=== PATIENT | male | born 1960 | race Caucasian/White ===

== ENCOUNTER 2019-05-17 13:13 | Outpatient (CLI) | payer OTHER, SELFPAY ==
--- NOTE | 2019-05-20 12:25 | WPDHOLTEREM ---
Holter/Event Monitor Holter/Event Monitor Date of procedure: 05/17/19 Procedure Type: 24 hour holter monitor Indications: Cardiac arrhythmia Conclusion: 1. 24 hour holter monitor on 05/17/19. 2. Underlying rhythm is sinus rhythm. HR range 48-113 bpm; average HR 71 bpm. 3. There are 3,587 premature supraventricular complexes, 74 supraventricular couplets, 3 supraventricular bigeminy and 2,297 supraventricular trigeminy. No supraventricular tachycardia. 4. There are 714 premature ventricular complexes and 3 ventricular bigeminy. No ventricular tachycardia. 5. No sinoatrial or atrioventricular blocks. No significant pauses greater than 2 seconds. 6. No symptoms available for correlation.
== END 2019-05-17 13:14 | disposition home or self-care (01) ==
PROVIDERS: PCP Family Medicine; Visit Provider Physician Assistant Medical
DX: I49.9 Cardiac arrhythmia, unspecified (principal)
CPT/HCPCS: 93225; 93226

== ENCOUNTER → 2019-05-31 11:11 | Outpatient (CLI) | payer OTHER, SELFPAY ==
--- NOTE | ~2019-05-31 | DEXA_ITS ---
Bone Density Report Name: Anselmo Arellano Age: 58 Sex: Male Ethnicity: White Date of : 1960 Indication: Osteoporosis Referring Provider: Sarah Beth Stevens Study: Bone densitometry was performed. Exam Date: May 31, 2019 Accession number: [id number] Bone Density: Region BMD T-score Z-score Classification AP Spine (L1-L4) 0.796 -2.7 -2.0 Osteoporosis Femoral Neck (Left) 0.642 -2.1 -1.2 Osteopenia Total Hip (Left) 0.786 -1.6 -1.2 Osteopenia Femoral Neck (Right) 0.612 -2.3 -1.4 Osteopenia Total Hip (Right) 0.729 -2.0 -1.6 Osteopenia Total Hip Mean 0.758 -1.8 -1.4 Osteopenia World Health Organization criteria for BMD impression classify patients as: Normal (T-score at or above -1.0), Osteopenia (T-score between -1.0 and -2.5), or Osteoporosis (T-score at or below -2.5). 10-year Fracture Risk: FRAX not reported because: Some T-score for Spine Total or Hip Total or Femoral Neck at or below -2.5 Clinical Information Provided by Patient: Has used the following medications: Vitamin D, Calcium Patient maximum height was 70 No regular weight bearing exercise Drinks caffeinated beverages Impression: The patient has osteoporosis, based on the Total Spine T-score. Discussion: HIGH RISK OF FRACTURE. BONE DENSITY IS UNDESIRABLY LOW AT ONE OR MORE SKELETAL SITES, CONSISTENT WITH OSTEOPOROSIS. ALSO, BONE DENSITY IS LOWER THAN EXPECTED FOR AGE, SEX AND RACE AT ONE OR MORE SKELETAL SITES; RECOMMEND A DILIGENT SEARCH FOR SECONDARY CAUSES OF BONE LOSS. This patient's lowest T-score meets the World Health Organization's (WHO) criteria for osteoporosis at one or more sites (T-score -2.5 or below). In untreated patients, the risk of osteoporotic fracture increases approximately two-fold for each 1.0 SD decrease in T-score. Low bone density is not the only risk factor for fracture; also consider factors such as patient's age, frailty or poor health, risk of falling, risk of injury, previous osteoporotic fracture, family history of osteoporosis, cigarette smoking, low body weight, etc. Not everyone with low bone mineral density has osteoporosis; osteomalacia and other metabolic bone disorders should also be considered. Patients who have osteoporosis should be evaluated for specific diseases and conditions (secondary causes) that may cause or contribute to bone loss. The National Osteoporosis Foundation (NOF) recommends pharmacologic intervention for men with BMD at this level (a T-score of -2.5 or below). Also, this patient's bone mineral density is below the range considered normal for healthy age-, sex and race-matched controls at least one site (Z-score -2.0 or below). This warrants careful evaluation for diseases and conditions that may contribute to accelerated bone loss. The patient should follow a healthful lifestyle (good nutriti
== END ==
PROVIDERS: PCP Physician Assistant Medical; Visit Provider Internal Medicine Endocrinology, Diabetes & Metabolism
DX: M81.0 Age-related osteoporosis without current pathological fracture (principal); M85.89 Other specified disorders of bone density and structure, multiple sites
CPT/HCPCS: 77080

== ENCOUNTER 2019-06-15 07:31 | Outpatient (CLI) | payer OTHER, SELFPAY ==
--- NOTE | 2019-06-15 07:37 | ECHO_ITS ---
Patient Info Name: Anselmo Arellano Age: 58 years : 1960 Gender: Male Ht: 70 in Wt: 175 lbs BSA: 1.99 m2 HR: 64 bpm BP: 112 / 71 mmHg Technical Quality: Excellent Exam Date: 06/15/2019 7:48 AM Exam Location: [facility] Patient Status: Outpatient Admit Date: 06/15/2019 Staff Ordering Physician: Gabe Tomas DO Mold Washer: Domonique Gandara RDCS Attending Provider: Gabe Tomas DO Referring Physician: Thom CONTRERAS; Exam Type: CA echo doppler color flow Study Info Indications I49.3 - Ventricular premature depolarization Complete two-dimensional, color flow and Doppler transthoracic echocardiogram is performed. Summary 1. Left ventricular chamber dimension is normal. 2. Left ventricular systolic function is normal, estimated at 60-65%. 3. The left ventricular diastolic function is normal. 4. E/e' 7 is not elevated. 5. There is mild aortic valve sclerosis. 6. There is trace mitral valve regurgitation. 7. There is trace tricuspid valve regurgitation. 8. No pulmonary hypertension, estimated pulmonary arterial systolic pressure is 26 mmHg. Left Ventricle E/e' 7 is not elevated. Left ventricular chamber dimension is normal. Left ventricular systolic function is normal, estimated at 60-65%. The left ventricular diastolic function is normal. Right Ventricle Right ventricular chamber dimension is normal. Right ventricular systolic function is normal. Left Atria Left atrial chamber dimension is normal. Right Atria Right atrial chamber dimension is normal. Aortic Valve The aortic valve is trileaflet. There is mild aortic valve sclerosis. There is no aortic valve stenosis. There is no aortic valve regurgitation. Pulmonic Valve There is no pulmonic regurgitation. Mitral Valve There is no mitral valve stenosis. There is trace mitral valve regurgitation. Tricuspid Valve There is trace tricuspid valve regurgitation. No pulmonary hypertension, estimated pulmonary arterial systolic pressure is 26 mmHg. Pericardium/Pleural There is no pericardial effusion. Inferior Vena Cava Normal inferior vena cava with >50% collapse upon inspiration consistent with normal right atrial pressure, 5 mmHg. Aorta The aortic root size at the sinus of Valsalva is normal. Left Ventricular Outflow Tract Name Value Normal LVOT 2D LVOT Diameter 2.3 cm LVOT Doppler LVOT Peak Gradient 2 mmHg LVOT Mean Gradient 1 mmHg LVOT VTI 18 cm LVOT VTI/AV VTI Ratio 1.0 LVOT Stroke Volume 74 ml LVOT CO 4.5 l/min LVOT CI 2.3 l/min/m2 Pulmonic Valve Name Value Normal RVOT Doppler RVOT Peak Gradient 2 mmHg
== END 2019-06-15 07:32 | disposition home or self-care (01) ==
PROVIDERS: PCP Physician Assistant Medical; Visit Provider Internal Medicine Cardiovascular Disease
DX: I49.3 Ventricular premature depolarization (principal)
CPT/HCPCS: 93306

== ENCOUNTER → 2020-06-23 12:36 | Outpatient (CLI) | payer MEDICARE, SELFPAY ==
--- NOTE | ~2020-06-23 | DEXA_ITS ---
Bone Density Report Name: Anselmo Arellano Age: 59 Sex: Male Ethnicity: White Date of : 1960 Indication: osteoporosis; monitoring treatment; Referring Provider: Sarah Beth Stevens Study: Bone densitometry was performed. Exam Date: June 23, 2020 Accession number: [id number] Bone Density: Region BMD T-score Z-score Classification AP Spine (L1-L4) 0.819 -2.5 -1.8 Osteoporosis Femoral Neck (Left) 0.661 -2.0 -1.0 Osteopenia Total Hip (Left) 0.824 -1.4 -0.9 Osteopenia Femoral Neck (Right) 0.589 -2.5 -1.5 Osteoporosis Total Hip (Right) 0.748 -1.9 -1.4 Osteopenia Total Hip Mean 0.786 -1.7 -1.2 Osteopenia World Health Organization criteria for BMD impression classify patients as: Normal (T-score at or above -1.0), Osteopenia (T-score between -1.0 and -2.5), or Osteoporosis (T-score at or below -2.5). 10-year Fracture Risk: FRAX not reported because: Some T-score for Spine Total or Hip Total or Femoral Neck at or below -2.5 Treated for osteoporosis Previous Exams: Region Exam Age BMD T-score BMD Change BMD Change Date g/cm2 vs Baseline vs Previous AP Spine(L1-L4) 06/23/2020 59 0.819 -2.5 0.022 0.022 05/31/2019 58 0.796 -2.7 Total Hip(Left) 06/23/2020 59 0.824 -1.4 0.038* 0.038* 05/31/2019 58 0.786 -1.6 Total Hip(Right) 06/23/2020 59 0.748 -1.9 0.020 0.020 05/31/2019 58 0.729 -2.0 *Denotes significance at 95% confidence level, LSC for AP Spine = 0.022 g/cm2, LSC for Total Hip = 0.027 g/cm2 Clinical Information Provided by Patient: Is being treated for osteoporosis Has used the following medications: Prolia (i.e. denosumab), Vitamin D, Calcium Patient maximum height was 70 No regular weight bearing exercise Drinks caffeinated beverages Impression: The patient has osteoporosis, based on the Total Spine T-score. No significant bone loss was observed. Discussion: PATIENT UNDER TREATMENT WITH NO SIGNIFICANT BMD LOSS SINCE LAST EXAM. In an untreated patient, BMD typically declines with age. A lack of decline or gain is usually a sign that treatment is efficacious and fracture risk is reduced. It is important to ask patients whether they are taking their medications and to encourage continued and appropriate compliance with their osteoporosis therapies to reduce fracture risk. It is also important to review their risk factors and encourage appropriate calcium and vitamin D intakes, exercise
== END ==
PROVIDERS: Visit Provider Internal Medicine Endocrinology, Diabetes & Metabolism
DX: M81.0 Age-related osteoporosis without current pathological fracture (principal); M85.852 Other specified disorders of bone density and structure, left thigh; M85.851 Other specified disorders of bone density and structure, right thigh
CPT/HCPCS: 77080

== ENCOUNTER → 2020-12-19 10:45 | Outpatient (CLI) | payer MEDICARE, SELFPAY ==
--- NOTE | ~2020-12-19 | MR_ITS ---
EXAMINATION: MR cervical spine wo con EXAM DATE: 12/19/2020 11:31 INDICATION: Cervicalgia. Neck pain. TECHNIQUE: Multi-sequential, multiplanar MR images of the cervical spine were obtained without contra st. Axial T2, axial T2 MERGE sequence. Sagittal T1, T2, T2 fat saturation images also obtained. Th ere is no prior study for comparison. FINDINGS: There is mild to moderate disc disease at C5-6, mild at the C4-5 and 6-7 levels. The verte bral bodies are aligned in the AP dimension. The spinal cord signal intensity and intrinsic morpholog y is normal. Cervicomedullary junction is normal in appearance. There is T1 hemangioma. There are no suspicious marrow signal abnormalities. Paraspinal soft tissue is unremarkable. Level by level evaluation: C2-C3: Disc does not extend beyond the endplate margin. Uncovertebral joint arthropathy: None. Facet joint arthropathy: Mild bilateral. Neural foraminal stenosis: No stenosis. Central canal stenosis: No stenosis. C3-C4: There is a minimal diffuse disc bulge. Uncovertebral joint arthropathy: Mild to moderate left, mild right. Facet joint arthropathy: Moderate bilateral. Neural foraminal stenosis: Mild bilateral. Central canal stenosis: No stenosis. C4-C5: There is a minimal diffuse disc bulge. Uncovertebral joint arthropathy: Mild bilateral. Facet joint arthropathy: Mild to moderate bilateral. Neural foraminal stenosis: Mild bilateral. Central canal stenosis: No stenosis. C5-C6: There is a mild diffuse disc bulge. Uncovertebral joint arthropathy: Moderate bilateral. Facet joint arthropathy: Moderate bilateral. Neural foraminal stenosis: Mild to moderate bilateral. Central canal stenosis: Mild. C6-C7: There is a mild diffuse disc bulge. Uncovertebral joint arthropathy: Moderate bilateral. Facet joint arthropathy: Mild to moderate bilateral. Neural foraminal stenosis: Mild to moderate right, mild left. Central canal stenosis: Mild. C7-T1: Disc does not extend beyond the endplate margin. Uncovertebral joint arthropathy: None. Facet joint arthropathy: Mild to moderate bilateral. Neural foraminal stenosis: No stenosis. Central canal stenosis: No stenosis. IMPRESSION: Mild to moderate cervical spondylosis. Reviewed, dictated and finalized at location [facility].
== END ==
PROVIDERS: PCP Nurse Practitioner Family; Visit Provider Nurse Practitioner Family
DX: M54.2 Cervicalgia (principal); M47.812 Spondylosis without myelopathy or radiculopathy, cervical region
CPT/HCPCS: 72141

== ENCOUNTER → 2022-04-29 08:48 | Outpatient (CLI) | payer MEDICARE, SELFPAY ==
--- NOTE | ~2022-04-29 | MR_ITS ---
MRI of the lumbar spine Clinical History: Back pain Technique: Axial T2-weighted images, and sagittal T1-weighted, T2-weighted, and T2 fat-sat images wer e acquired. Findings: There is no fracture or subluxation of the lumbar spine. Vertebral bodies maintain normal h eight and alignment. No bone marrow signal abnormality seen. At L1-L2, there is no disc bulge or herniation. No spinal canal stenosis or neural foraminal narrowin g. At L2-L3, there is no disc bulge or herniation. No spinal canal stenosis or neural foraminal narrowin g. At L3-L4, there is minimal disc bulge. No spinal canal stenosis or neural foraminal narrowing. At L4-L5, there is minimal disc bulge and minimal facet joint degenerative change. No spinal canal st enosis or neural foraminal narrowing. At L5-S1, there is no disc bulge or herniation. No spinal canal stenosis or neural foraminal narrowin g. Paravertebral soft tissues are unremarkable. Impression: Minimal degenerative changes, as above. Reviewed, dictated and finalized at [facility]. TRY PRINTER Impression: Minimal degenerative changes, as above.
== END ==
PROVIDERS: PCP Family Medicine; Visit Provider Anesthesiology Pain Medicine
DX: M54.50 Low back pain, unspecified (principal)
CPT/HCPCS: 72148

== ENCOUNTER → 2022-09-25 13:20 | Outpatient (CLI) | payer MEDICARE, SELFPAY ==
--- NOTE | ~2022-09-25 | DEXA_ITS ---
Bone Density Report Name: LALI BAKER Age: 62 Sex: Male Ethnicity: White Date of : 1960 Indication: osteoporosis; monitoring treatment; postmenopausal Referring Provider: Sarah Beth Stevens Study: Bone densitometry was performed. Exam Date: September 25, 2022 Accession number: [id number] Bone Density: Region BMD T-score Z-score Classification AP Spine (L1-L4) 0.857 -2.1 -1.4 Osteopenia Femoral Neck (Left) 0.679 -1.8 -0.8 Osteopenia Total Hip (Left) 0.810 -1.5 -1.0 Osteopenia Femoral Neck (Right) 0.638 -2.1 -1.1 Osteopenia Total Hip (Right) 0.765 -1.8 -1.3 Osteopenia Total Hip Mean 0.788 -1.7 -1.2 Osteopenia World Health Organization criteria for BMD impression classify patients as: Normal (T-score at or above -1.0), Osteopenia (T-score between -1.0 and -2.5), or Osteoporosis (T-score at or below -2.5). 10-year Fracture Risk: FRAX not reported because: Treated for osteoporosis Previous Exams: Region Exam Age BMD T-score BMD Change BMD Change Date g/cm2 vs Baseline vs Previous AP Spine(L1-L4) 09/25/2022 62 0.857 -2.1 0.061 0.038 06/23/2020 59 0.819 -2.5 0.022 0.022 05/31/2019 58 0.796 -2.7 Total Hip(Left) 09/25/2022 62 0.810 -1.5 0.024 -0.014 06/23/2020 59 0.824 -1.4 0.038* 0.038* 05/31/2019 58 0.786 -1.6 Total Hip(Right) 09/25/2022 62 0.765 -1.8 0.037 0.017 06/23/2020 59 0.748 -1.9 0.020 0.020 05/31/2019 58 0.729 -2.0 *Denotes significance at 95% confidence level, LSC for AP Spine = 0.022 g/cm2, LSC for Total Hip = 0.027 g/cm2 Clinical Information Provided by Patient: Is being treated for osteoporosis Has used the following medications: Prolia (i.e. denosumab), Vitamin D, Calcium Patient maximum height was 70.0 Drinks caffeinated beverages Impression: The patient has low bone mass, based on the Total Spine T-score. No significant bone loss was observed. Discussion: PATIENT UNDER TREATMENT WITH NO SIGNIFICANT BMD LOSS SINCE LAST EXAM. In an untreated patient, BMD typically declines with age. A lack of decline or gain is usually a sign that treatment is efficacious and fracture risk is reduced. It is important to ask patients whether they are taking their medications and to encourage continued and appropriate compliance with their osteoporosis therapies to reduce fracture risk. It is also important t
== END ==
PROVIDERS: PCP Family Medicine; Visit Provider Internal Medicine Endocrinology, Diabetes & Metabolism
DX: M81.0 Age-related osteoporosis without current pathological fracture (principal); M85.88 Other specified disorders of bone density and structure, other site; M85.852 Other specified disorders of bone density and structure, left thigh; M85.851 Other specified disorders of bone density and structure, right thigh
CPT/HCPCS: 77080

== ENCOUNTER → 2022-10-08 13:20 | Outpatient (CLI) | payer MEDICARE, SELFPAY ==
--- NOTE | ~2022-10-08 | MR_ITS ---
MRI of the thoracic spine Clinical History: Pain Technique: Axial T2-weighted and gradient images, and sagittal T1-weighted, T2-weighted, and STIR romeo ges were acquired. Findings: There is no fracture or subluxation of the thoracic spine. Vertebral bodies maintain normal height and alignment. No suspicious bone marrow signal abnormality seen. There is mild left paracentral disc bulge at T4-T5. No other significant disc bulge or herniation see n in the remainder of the thoracic spine. No rand spinal canal stenosis or cord compression. No abnormal signal seen in the spinal cord. Paravertebral soft tissues are unremarkable. Impression: Mild left paracentral disc bulge at T4-T5. No other significant findings. Reviewed, dictated and finalized at [facility]. Impression: Mild left paracentral disc bulge at T4-T5. No other significant findings.
== END ==
PROVIDERS: PCP Nurse Practitioner Family; Visit Provider Nurse Practitioner Family
DX: M54.6 Pain in thoracic spine (principal)
CPT/HCPCS: 72146

== ENCOUNTER → 2023-02-08 09:14 | Outpatient (CLI) | payer MEDICARE, SELFPAY ==
--- NOTE | ~2023-02-08 | MR_ITS ---
MRI of the cervical spine Clinical History: Neck pain Technique: Axial T2-weighted and gradient images, and sagittal T1-weighted, T2-weighted, and STIR romeo ges were acquired. Findings: There is no fracture or subluxation of the cervical spine. Vertebral bodies maintain normal height and alignment. No suspicious bone marrow signal abnormality seen. At C2-C3, there is no disc bulge or herniation. No spinal canal stenosis, cord compression, or neural foraminal narrowing. At C3-C4, there is minimal disc bulge. There is minimal facet arthropathy. There is probable minimal right neural foraminal narrowing. Left neural foramen preserved. No central canal stenosis or cord co mpression. At C4-C5, there is no significant disc bulge or herniation. No spinal canal stenosis, cord compressio n, or neural foraminal narrowing. At C5-C6, there is disc osteophyte complex with central disc protrusion, with minimal canal stenosis and minimal flattening the ventral cord. There is probable mild bilateral neural foraminal narrowing. At C6-C7, there is mild disc bulge with mild canal stenosis and minimal flattening the ventral cord. Bilateral neural foramina are preserved. No abnormal signal seen in the spinal cord. Paravertebral soft tissues are unremarkable. Impression: [id number] degenerative spondylosis at C5-C6. Mild degenerative change at the remaining cervical spine, as detailed above. Reviewed, dictated and finalized at [facility]. ECTION AGENT Impression: [id number] degenerative spondylosis at C5-C6. Mild degenerative change at the remaining cervical spine, as detailed above.
== END ==
PROVIDERS: PCP Family Medicine; Visit Provider Nurse Practitioner Family
DX: M47.892 Other spondylosis, cervical region (principal)
CPT/HCPCS: 72141

== ENCOUNTER → 2023-04-24 13:35 | Outpatient (CLI) | payer MEDICARE, SELFPAY ==
--- NOTE | ~2023-04-24 | MR_ITS ---
MRI of the left knee Clinical history: Pain Technique: Coronal proton density and proton density-weighted images, sagittal proton-density and T2 fat-sat images, and axial proton-density fat-saturated images were acquired. Findings: Anterior and posterior cruciate ligaments are intact. Medial collateral ligament and the la teral collateral ligament complex are intact. Popliteus tendon is intact. There is probable linear intrasubstance degenerative signal in the posterior horn of the medial menis cus, without definite tear. No lateral meniscal tear evident. Articular cartilage in the medial lateral compartments is relatively well-preserved, with minimal thi nning. There is focal moderate chondromalacia of the femoral trochlea centrally. Patellar cartilage i s intact. Extensor mechanism is intact. No significant joint effusion or Ramirez's cyst. Impression: Mild degenerative change/chondromalacia, as above. Reviewed, dictated and finalized at [facility]. UTING MACHINE OPERATOR Impression: Mild degenerative change/chondromalacia, as above.
== END ==
PROVIDERS: PCP Nurse Practitioner Family; Visit Provider Nurse Practitioner Family
DX: M25.562 Pain in left knee (principal)
CPT/HCPCS: 73721

== ENCOUNTER 2024-06-08 19:24 | Emergency (ER) | payer MEDICARE, SELFPAY ==
--- NOTE | ~2024-06-08 | XR_ITS ---
EXAMINATION: XR chest 2V Exam Date/Time: 06/08/2024 20:20 CDT HISTORY: Heart palpitation, double vision in one eye Comparison: None. RESULT: Lines, tubes, and devices: None. Lungs and pleura: Clear. Cardiomediastinal silhouette: Unremarkable. Other: No acute osseous or upper abdominal finding. IMPRESSION: No acute cardiopulmonary process. Reviewed, dictated and finalized at location K.
--- NOTE | ~2024-06-08 | CT_ITS ---
EXAMINATION: CTA brain carotid DATE: 06/08/2024 21:11 INDICATION: Headache double vision TECHNIQUE: Computed tomographic angiography (CTA) of the head was performed without and with 100 mL O mnipaque-350 intravenous contrast. CTA of the neck was performed with intravenous contrast. The dose- length product was 1588.14 mGy-cm. Maximum intensity projection and volume rendered 3D-reconstruction s were created by the technologist on a separate workstation. COMPARISON: None. FINDINGS: CT BRAIN: Focal hypodensity involving gregg and white matter in the left parieto-occipital region. No acute intr acranial hemorrhage, mass, or hydrocephalus. Left maxillary and right sphenoid retention cysts/polyps . Right maxillary and ethmoid mucosal thickening. CTA HEAD: No large vessel occlusion, aneurysm, high flow vascular malformation, nidus or extravasation. Focal h ypoenhancement in the region of left parieto-occipital brain hypodensity seen in the noncontrast port ion of the exam. CTA NECK: Aortic arch and proximal great vessels: Normal arch anatomy. No significant plaque. Right common carotid, carotid bifurcation, and internal carotid artery: No plaque.There is 0% stenosi s of the proximal right internal carotid artery relative to normal distal artery lumen diameter (NASC ET criteria). Left common carotid, carotid bifurcation, and internal carotid artery: No plaque.There is 0% stenosis of the proximal left internal carotid artery relative to normal distal artery lumen diameter (NASCET criteria). Vertebral arteries: No significant plaque or stenosis. Vertebral arteries co-dominant. Other findings: None. IMPRESSION: Focal late hyperacute/acute left parieto-occipital infarct. No large vessel intracranial occlusion, high-grade intracranial stenosis, or aneurysm. No carotid or vertebral artery occlusion, dissection, or significant stenosis. Results reported telephonically to Dr. Castillo by Dr. Newell at 9:31 PM on 06/08/2024. Reviewed, dictated and finalized at location K. IMPRESSION: Focal late hyperacute/acute left parieto-occipital infarct. No large vessel intracranial occlusion, high-grade intracranial stenosis, or an eurysm. No carotid or vertebral artery occlusion, dissection, or significant stenosis. Results reported telephonically to Dr. Castillo by Dr. Newell at 9:31 PM on 05/16.
--- OUTSIDE RECORDS SUMMARY | 2024-06-08 19:27 | XMS_ITS ---
Author Organization [facility] Address [address] [place] [address] Care Team Providers Care Hack Saw Operator Name Role Phone Saima FELICIANO, Dino Primary Care Provider Jamarcus Johnson [phone] REASON FOR VISIT Refil Medications Medication SIG (Take, Route, Frequency, Duration) Notes Start Date End Date Status Azelastine HCl 137 MCG/SPRAY 2 sprays in each nostril Nasally Twice a day for 30 days Active Encounters Encounter Location Date Provider Diagnosis [facility] [address] [place] [address] 03/24/2024 Jamarcus Ramirez Allergic rhinitis due to pollen J30.1 Assessments Encounter Date Diagnosis (ICD Code) Assessment Notes Treatment Notes Treatment Clinical Notes Section Notes 03/24/2024 Allergic rhinitis due to pollen (ICD-10 - J30.1) Plan Of Treatment Medication Medication Name Sig Start Date Stop Date Notes Azelastine HCl 137 MCG/SPRAY 2 sprays in each nostril Nasally Twice a day for 30 days Next Appt Details Provider Name:Delmi aguirre, 11/22/2024 10:30:00 AM, [address], [place], [address], Progress Notes * Anselmo BAKERDOB:1960 (63 yo M)Acc No.[id number]:03/24/2024 Patient: Mauricio Anselmo COVARRUBIAS :1960 A ge:63 Y S ex:Male Address:[facility] [address], [place] [address] * Refills Refill Azelastine HCl Solution, 137 MCG/SPRAY, Nasally, 1, 2 sprays in each nostril, Twice a day, 30 days, Refills=2 * true * Date: Generated for Walter valencia/Colin/Carmineitting on: 0 06/08/2024 07:27 PM CDT
--- OUTSIDE RECORDS SUMMARY | 2024-06-08 19:27 | XMS_ITS ---
Author Organization [facility] [employer] [facility] Address [address] [facility] [address] [place] [address] Care Team Providers Care Insurance Processing Clerk Name Role Phone JOAN SANDY MD Primary Care Provider Unavail able Poli Jacobs Unavailable [phone] REASON FOR VISIT Alprazolam Medications Medication SIG (Take, Route, Fr equency, Duration) Notes Start Date End Date Status ALPRAZolam 0.5 MG 1 tablet Oral once a day for 14 days gap fill 03/31/2024 Active Social History Sex Assigned At : Social History Observation Description Sex Assigned At Male Encounters Encounter Location Date Provider Diagnosis [facility] [address] [facility] [address] [place] [address] 03/30/2024 Poli Jacobs VLADISLAV (generalized anxiety disorder) F41.1 Assessments Encounter Date Diagnosis (ICD Code) Assessment Notes Treatment Notes Treatment Clinical Notes Section Notes 03/30/2024 VLADISLAV (generalized anxiety disorder) (ICD-10 - F41.1) Plan Of Treatment Medication Medication Name Sig Start Date Stop Date Notes ALPRAZolam 0.5 MG 1 tablet Oral once a day for 14 days Next Appt Details Provider Name:Poli Jacobs , 06/21/2024 01:00:00 PM, [address], [facility] [address], [place], [address], Progress Notes * Anselmo BAKERDOB:1960 (63 yo M)Acc No.[id number]:03/30/2024 Patient: Anselmo PAREDES :1960 A ge:63 Y S ex:Male Phone: Address:[address], [place] [facility] [address] * Refills Refill ALPRAZolam Tablet, 0.5 MG, Oral, 14 Tablet, 1 tablet, once a day, 14 days, Refills=0 * true * Date: Generated for Walter valencia/Colin/Tip on: 0 06/08/2024 07:27 PM CDT
--- OUTSIDE RECORDS SUMMARY | 2024-06-08 19:27 | XMS_ITS | Patient Health Record ---
Author Organization [facility] Address [address] [facility] [address] [place] [address] Care Team Providers Care Register Clerk Name Role Phone JOAN SANDY MD Primary Care Provider Unavail able Poli Jacobs Unavailable [phone] Allergies No Known Allergies Results Component Value Reference Range Notes UDT Reviewed date:03/24/2024 03:32:05 PM Interpretation: Performing Lab: Notes/Report: THC N 0 - 50 ng/ml Cocaine N 0 - 300 ng/ml Amphetamine N 0 - 1000 ng/ml Buprenorphine (BUP) N 0 - 10 ng/ml Secobarbital (Bar) N 0 - 300 ng/ml Oxazepam (BZO) P 0 - 300 ng/ml 4-vtubxqqcun-2,6-kirealsg-3,3-diphenylpyrrolidine (ELLIS P) N 0 - 300 ng/ml Methamphetamine (MET) N 0 - 1000 ng/ml Methylenedioxymethamphetamine (MDMA) N 0 - 500 ng/ml Morphine (MOP 300/[id number]) N 0 - 300 ng/ml Methadone (MTD) N 0 - 300 ng/ml Phencyclidine (PCP) N 0 - 25 ng/ml Nortriptyline (TCA) N 0 - 1000 ng/ml Oxycodone N 0 - 300 ng/ml x N 0 - 300 ng/ml UDT Reviewed date:09/24/2023 09:38:51 AM Interpretation: Performing Lab: Notes/Report: THC N 0 - 50 ng/ml Cocaine N 0 - 300 ng/ml Amphetamine N 0 - 1000 ng/ml Buprenorphine (BUP) N 0 - 10 ng/ml Secobarbital (Bar) N 0 - 300 ng/ml Oxazepam (BZO) P 0 - 300 ng/ml 9-vuewcqhwlw-4,8-hjqyzrgt-1,3-diphenylpyrrolidine (ELLIS P) N 0 - 300 ng/ml Methamphetamine (MET) N 0 - 1000 ng/ml Methylenedioxymethamphetamine (MDMA) N 0 - 500 ng/ml Morphine (MOP 300/[id number]) N 0 - 300 ng/ml Methadone (MTD) N 0 - 300 ng/ml Phencyclidine (PCP) N 0 - 25 ng/ml Nortriptyline (TCA) N 0 - 1000 ng/ml x N 0 - 300 ng/ml UDT Reviewed date:12/25/2023 02:36:59 PM Interpretation: Performing Lab: Notes/Report: THC N 0 - 50 ng/ml Cocaine N 0 - 300 ng/ml Amphetamine N 0 - 1000 ng/ml Buprenorphine (BUP) N 0 - 10 ng/ml Secobarbital (Bar) N 0 - 300 ng/ml Oxazepam (BZO) P 0 - 300 ng/ml 4-bzqofsgbdv-0,5-zutbqlhb-2,3-diphenylpyrrolidine (ELLIS P) N 0 - 300 ng/ml Methamphetamine (MET) N 0 - 1000 ng/ml Methylenedioxymethamphetamine (MDMA) N 0 - 500 ng/ml Morphine (MOP 300/[id number]) N 0 - 300 ng/ml Methadone (MTD) N 0 - 300 ng/ml Phencyclidine (PCP) N 0 - 25 ng/ml Nortriptyline (TCA) N 0 - 1000 ng/ml Oxycodone N 0 - 300 ng/ml x N 0 - 300 ng/ml Reason For Referral No Information Medications Medication SIG (Take, Route, Frequency, Duration) Notes Start Date End Date Status ALPRAZolam 0.5 MG 1 tablet Oral once a day for 14 days gap fill 03/31/2024 Active Lansoprazole 30 MG Oral for 90 Days Active Pregabalin 200 MG Oral for 90 Days Active Sertraline HCl 100 MG 1 tablet Oral Once a day for 90 days Active Zolpidem Tartrate 10 MG 1 tablet at bedt riri Oral once a day for 90 days 03/24/2024 Active Azelastine HCl 0.1 % USE 2 SPRAYS IN EAC H NOSTRIL TWICE DAILY Nasal for 25 Days Active Rosuvastatin Calcium 40 MG TAKE 1 TABLET BY MOUTH DAILY Oral for 90 Days Active Social History Tobacco Use: Social History Observation Description Date Details (start date - stop date) Never Smoker NA - NA Sex Assigned At : Social History Observation Description Sex Assigned At Male Tobacco Control (Standard) Question Answer Notes Tobacco use: Nonsmoker AUDIT-C (Standard) Question Answer Notes Did you have a drink containing alcohol in the p ast year? No Points 0 Interpretation Negative Problems Problem Type SNOMED Code ICD Code Onset Dates Problem Status W/U Status Risk Notes Problem Primary insomnia (0361144) Primary insomnia (F51.01) Active confirmed Problem Generalized anxiety disorder (02560992) VLADISLAV (generalized anxiety disorder) (F41.1) Active confirmed Problem Recurrent major depression (11137972) MDD (recurrent major depressive disorder) in remission (F33.40) Active confirmed Problem Cervical spondylosis without myelopathy (361874681) Cervical spondylosis without myelopathy (M47.812) 1 Active confirmed Problem Irritable bowel syndrome (59282931) Irritable bowel syndrome (K58.9) 5 Active confirmed Vital Signs Heart Rate 78 /min 03/24/2024 Height-cm 177.8 cm 03/24/2024 Blood pressure diastolic 86 mm Hg 03/24/2024 Weight-kg 91.63 kg 03/24/2024 Height 70 in 03/24/2024 Blood pressure systolic 129 mm Hg 03/24/2024 Weight 202.0 lbs 03/24/2024 BMI 28.98 kg/m2 03/24/2024 Encounters Encounter Location Date Provider Diagnosis [facility] [address] [facility] [address] [place] [address] 09/24/2023 Poli Arlene MDD (recurrent major depressive disorder) in remission F33.40 ; VLADISLAV (generalized anxiety disorder) F41.1 and Primary insomnia F51.01 [facility] [address] [place] [address] [place] [address] 12/25/2023 Poli Arlene MDD (recurrent major depressive disorder) in remission F33.40 ; VLADISLAV (generalized anxiety disorder) F41.1 ; Primary insomnia F51.01 and Irritable bowel syndrome K58.9 [facility] [address] [facility] [address] [place] [address] 03/24/2024 Poli Arlene MDD (recurrent major depressive disorder) in remission F33.40 ; VLADISLAV (generalized anxiety disorder) F41.1 ; Primary insomnia F51.01 and Irritable bowel syndrome K58.9 [facility] [address] [place] [address] [place] [address] 09/25/2023 Poli Arlene Primary insomnia F51.01 [facility] [address] [place] [address] [place] [address] 09/29/2023 Poli Arlene Primary insomnia F51.01 [facility] [address] [place] [address] [place] [address] 03/30/2024 Poli Arlene VLADISLAV (generalized anxiety disorder) F41.1 [facility] [address] [place] [address] [place] [address] 09/24/2023 Poli Arlene MDD (recurrent major depressive disorder) in remission F33.40 and Primary insomnia F51.01 Assessments Encounter Date Diagnosis (ICD Code) Assessment Notes Treatment Notes Treatment Clinical Notes Section Notes 09/25/2023 Primary insomnia (ICD-10 - F51.01) 09/29/2023 Primary insomnia (ICD-10 - F51.01) 12/25/2023 MDD (recurrent major depressive disorder) in remission (ICD-10 - F33.40) Anxiety - Assessment: The patient reports increased anxiety due to his 's work-related stress and their inability to spend quality time together. His anxiety appears to be exacerbated by his 's frequent illnesses and the need to maintain distance during her sickness. - Plan: - Continue current medication: Sertraline 100 mg daily and Alprazolam as needed. - Encourage the patient to engage in self-care activities and stress management techniques, such as deep breathing exercises, meditation, or physical activity. - Recommend couples counseling or support groups to help both the patient and his cope with their individual and shared stressors. Depression - Assessment: The patient's depression seems to be in remission, with no significant symptoms reported during the visit. - Plan: - Continue current medication: Sertraline 100 mg daily. - Monitor for any changes in mood or depressive symptoms during follow-up appointments. Insomnia - Assessment: The patient reports sleep apnea and is currently taking Zolpidem 10 mg for insomnia. - Plan: - Continue current medication: Zolpidem 10 mg as needed. - Encourage the patient to practice good sleep hygiene, such as maintaining a consistent sleep schedule, creating a relaxing bedtime routine, and avoiding stimulants close to bedtime. Chronic Pain (Back and Knees) - Assessment: The patient reports ongoing back pain and knee pain, for which he has been receiving injections and attending physical therapy. - Plan: - Continue with current pain management plan, including injections and physical therapy as prescribed by the patient's primary care provider or specialist. - Consider referral to a paint roller covermaker if the patient's pain does not improve or worsens. General Health - Assessment: The patient reports stable cholesterol levels and no other significant medical concerns. - Plan: - Encourage the patient to maintain a healthy lifestyle, including regular exercise, a balanced diet, and routine medical check-ups. Follow-up - Plan: - Schedule a follow-up appointment in three months to monitor the patient's progress and adjust treatment plans as needed. - Encourage the patient to contact the clinic if any new concerns or changes in symptoms arise before the next scheduled appointment. 09/24/2023 VLADISLAV (generalized anxiety disorder) (ICD-10 - F41.1) Major Depressive Disorder - Assessment: Anselmo reports a history of agitation, difficulty concentrating, and trust issues since school. He has been on Sertraline 100 mg for depression and anxiety, which has helped with anger management. Mood is generally not happy and not satisfied with life. - Plan: a. Continue Sertraline 100 mg daily. b. Monitor mood and depressive symptoms at follow-up visits. c. Consider referral to a therapist for additional support and coping strategies. Generalized Anxiety Disorder - Assessment: Anselmo experiences anxiety in large gatherings and crowds, with a history of anxiety attacks. Currently on Alprazolam 0.5 mg. - Plan: a. Continue Alprazolam 0.5 mg as needed for anxiety. b. Encourage Anselmo to practice relaxation techniques and consider engaging in regular physical activity to help manage anxiety. c. Reassess the need for medication adjustments at follow-up visits. Insomnia - Assessment: Anselmo has been taking Zolpidem for insomnia, prescribed by Dr. Larsen. - Plan: a. Continue Zolpidem as prescribed for insomnia. b. Encourage Anselmo to practice good sleep hygiene, including establishing a regular sleep schedule and creating a relaxing bedtime environment. c. Reevaluate the effectiveness of Zolpidem at follow-up visits. Gastroesophageal Reflux Disease (GERD) and Hiatal Hernia - Assessment: Anselmo reports a weak stomach, GERD, acid reflux, and a high angle hernia found during endoscopy. - Plan: a. Recommend fwse-cpp-adoxzda antacids or H2 blockers for symptom management. b. Encourage Anselmo to avoid trigger foods and maintain a healthy weight. c. Consider referral to a transplant nurse if symptoms worsen or do not improve with conservative management. Hyperlipidemia - Assessment: Anselmo is currently taking Pravastatin 40 mg for high cholesterol. - Plan: a. Continue Pravastatin 40 mg daily. b. Encourage Anselmo to maintain a heart-healthy diet and engage in regular physical activity. c. Monitor lipid levels at follow-up visits and adjust medication as needed. Osteoporosis - Assessment: Anselmo is on Prolia injection every six months for osteoporosis. - Plan: a. Continue Prolia injections as prescribed. b. Encourage Anselmo to consume a diet rich in calcium and vitamin D, and engage in weight-bearing exercises. c. Monitor bone density at follow-up visits and adjust treatment as needed. Cardiac Arrhythmia - Assessment: Anselmo reports a heart flutter, not serious. - Plan: a. Monitor for any changes in symptoms or worsening of the heart flutter. b. Consider referral to a car dumper operator if symptoms worsen or new concerns arise. c. Encourage Anselmo to maintain a heart-healthy lifestyle, including regular physical activity and a balanced diet. Pharmacy: [facility]. Medications sent to mail-order pharmacy: [facility] in [place], now [facility]. 09/24/2023 MDD (recurrent major depressive disorder) in remission (ICD-10 - F33.40) Major Depressive Disorder - Assessment: Anselmo reports a history of agitation, difficulty concentrating, and trust issues since school. He has been on Sertraline 100 mg for depression and anxiety, which has helped with anger management. Mood is generally not happy and not satisfied with life. - Plan: a. Continue Sertraline 100 mg daily. b. Monitor mood and depressive symptoms at follow-up visits. c. Consider referral to a therapist for additional support and coping strategies. Generalized Anxiety Disorder - Assessment: Anselmo experiences anxiety in large gatherings and crowds, with a history of anxiety attacks. Currently on Alprazolam 0.5 mg. - Plan: a. Continue Alprazolam 0.5 mg as needed for anxiety. b. Encourage Anselmo to practice relaxation techniques and consider engaging in regular physical activity to help manage anxiety. c. Reassess the need for medication adjustments at follow-up visits. Insomnia - Assessment: Anselmo has been taking Zolpidem for insomnia, prescribed by Dr. Larsen. - Plan: a. Continue Zolpidem as prescribed for insomnia. b. Encourage Anselmo to practice good sleep hygiene, including establishing a regular sleep schedule and creating a relaxing bedtime environment. c. Reevaluate the effectiveness of Zolpidem at follow-up visits. Gastroesophageal Reflux Disease (GERD) and Hiatal Hernia - Assessment: Anselmo reports a weak stomach, GERD, acid reflux, and a high angle hernia found during endoscopy. - Plan: a. Recommend clvi-eim-bfgumik antacids or H2 blockers for symptom management. b. Encourage Anselmo to avoid trigger foods and maintain a healthy weight. c. Consider referral to a transplant nurse if symptoms worsen or do not improve with conservative management. Hyperlipidemia - Assessment: Anselmo is currently taking Pravastatin 40 mg for high cholesterol. - Plan: a. Continue Pravastatin 40 mg daily. b. Encourage Anselmo to maintain a heart-healthy diet and engage in regular physical activity. c. Monitor lipid levels at follow-up visits and adjust medication as needed. Osteoporosis - Assessment: Anselmo is on Prolia injection every six months for osteoporosis. - Plan: a. Continue Prolia injections as prescribed. b. Encourage Anselmo to consume a diet rich in calcium and vitamin D, and engage in weight-bearing exercises. c. Monitor bone density at follow-up visits and adjust treatment as needed. Cardiac Arrhythmia - Assessment: Anselmo reports a heart flutter, not serious. - Plan: a. Monitor for any changes in symptoms or worsening of the heart flutter. b. Consider referral to a car dumper operator if symptoms worsen or new concerns arise. c. Encourage Anselmo to maintain a heart-healthy lifestyle, including regular physical activity and a balanced diet. Pharmacy: [facility]. Medications sent to mail-order pharmacy: [facility] in [place], now called [facility]. 09/24/2023 MDD (recurrent major depressive disorder) in remission (ICD-10 - F33.40) 03/24/2024 MDD (recurrent major depressive disorder) in remission (ICD-10 - F33.40) Insomnia - Plan: - Continue zolpidem 10 mg as prescribed. - Reassess sleep quality in 3 months. Depression and Anxiety - Plan: - Continue sertraline 100 mg daily. - Monitor for any changes in mood or anxiety levels. - Reevaluate in 3 months. Dyslipidemia - Plan: - Continue rosuvastatin as prescribed. - Monitor lipid levels and adjust medication if necessary. - Reassess in 3 months. Neuropathic pain - Plan: - Continue pregabalin as prescribed. - Monitor pain levels and adjust medication if necessary. - Reassess in 3 months. Gastroesophageal reflux disease (GERD) - Plan: - Continue lansoprazole as prescribed. - Monitor for any changes in symptoms and adjust medication if necessary. - Reassess in 3 months. Routine health maintenance - Plan: - Perform blood pressure measurement and other routine health checks during the next visit. Follow-up - Plan: - Schedule a follow-up appointment in 3 months (beginning of June) to reassess the patient's conditions and medications. Urine drug screen - Plan: - Obtain a urine sample for drug screening to monitor Xanax use. Medications - Plan: - Continue all current medications as prescribed. - Provide 90-day prescriptions for most medications. 03/30/2024 VLADISLAV (generalized anxiety disorder) (ICD-10 - F41.1) 03/24/2024 VLADISLAV (generalized anxiety disorder) (ICD-10 - F41.1) Insomnia - Plan: - Continue zolpidem 10 mg as prescribed. - Reassess sleep quality in 3 months. Depression and Anxiety - Plan: - Continue sertraline 100 mg daily. - Monitor for any changes in mood or anxiety levels. - Reevaluate in 3 months. Dyslipidemia - Plan: - Continue rosuvastatin as prescribed. - Monitor lipid levels and adjust medication if necessary. - Reassess in 3 months. Neuropathic pain - Plan: - Continue pregabalin as prescribed. - Monitor pain levels and adjust medication if necessary. - Reassess in 3 months. Gastroesophageal reflux disease (GERD) - Plan: - Continue lansoprazole as prescribed. - Monitor for any changes in symptoms and adjust medication if necessary. - Reassess in 3 months. Routine health maintenance - Plan: - Perform blood pressure measurement and other routine health checks during the next visit. Follow-up - Plan: - Schedule a follow-up appointment in 3 months (beginning june) to reassess the patient's conditions and medications. Urine drug screen - Plan: - Obtain a urine sample for drug screening to monitor Xanax use. Medications - Plan: - Continue all current medications as prescribed. - Provide 90-day prescriptions for most medications. 12/25/2023 VLADISLAV (generalized anxiety disorder) (ICD-10 - F41.1) Anxiety - Assessment: The patient reports increased anxiety due to his 's work-related stress and their inability to spend quality time together. His anxiety appears to be exacerbated by his 's frequent illnesses and the need to maintain distance during her sickness. - Plan: - Continue current medication: Sertraline 100 mg daily and Alprazolam as needed. - Encourage the patient to engage in self-care activities and stress management techniques, such as deep breathing exercises, meditation, or physical activity. - Recommend couples counseling or support groups to help both the patient and his cope with their individual and shared stressors. Depression - Assessment: The patient's depression seems to be in remission, with no significant symptoms reported during the visit. - Plan: - Continue current medication: Sertraline 100 mg daily. - Monitor for any changes in mood or depressive symptoms during follow-up appointments. Insomnia - Assessment: The patient reports sleep apnea and is currently taking Zolpidem 10 mg for insomnia. - Plan: - Continue current medication: Zolpidem 10 mg as needed. - Encourage the patient to practice good sleep hygiene, such as maintaining a consistent sleep schedule, creating a relaxing bedtime routine, and avoiding stimulants close to bedtime. Chronic Pain (Back and Knees) - Assessment: The patient reports ongoing back pain and knee pain, for which he has been receiving injections and attending physical therapy. - Plan: - Continue with current pain management plan, including injections and physical therapy as prescribed by the patient's primary care provider or specialist. - Consider referral to a paint roller covermaker if the patient's pain does not improve or worsens. General Health - Assessment: The patient reports stable cholesterol levels and no other significant medical concerns. - Plan: - Encourage the patient to maintain a healthy lifestyle, including regular exercise, a balanced diet, and routine medical check-ups. Follow-up - Plan: - Schedule a follow-up appointment in three months to monitor the patient's progress and adjust treatment plans as needed. - Encourage the patient to contact the clinic if any new concerns or changes in symptoms arise before the next scheduled appointment. 09/24/2023 Primary insomnia (ICD-10 - F51.01) Major Depressive Disorder - Assessment: Anselmo reports a history of agitation, difficulty concentrating, and trust issues since school. He has been on Sertraline 100 mg for depression and anxiety, which has helped with anger management. Mood is generally not happy and not satisfied with life. - Plan: a. Continue Sertraline 100 mg daily. b. Monitor mood and depressive symptoms at follow-up visits. c. Consider referral to a therapist for additional support and coping strategies. Generalized Anxiety Disorder - Assessment: Anselmo experiences anxiety in large gatherings and crowds, with a history of anxiety attacks. Currently on Alprazolam 0.5 mg. - Plan: a. Continue Alprazolam 0.5 mg as needed for anxiety. b. Encourage Anselmo to practice relaxation techniques and consider engaging in regular physical activity to help manage anxiety. c. Reassess the need for medication adjustments at follow-up visits. Insomnia - Assessment: Anselmo has been taking Zolpidem for insomnia, prescribed by Dr. Larsen. - Plan: a. Continue Zolpidem as prescribed for insomnia. b. Encourage Anselmo to practice good sleep hygiene, including establishing a regular sleep schedule and creating a relaxing bedtime environment. c. Reevaluate the effectiveness of Zolpidem at follow-up visits. Gastroesophageal Reflux Disease (GERD) and Hiatal Hernia - Assessment: Anselmo reports a weak stomach, GERD, acid reflux, and a high angle hernia found during endoscopy. - Plan: a. Recommend tcbd-uam-wlucncp antacids or H2 blockers for symptom management. b. Encourage Anselmo to avoid trigger foods and maintain a healthy weight. c. Consider referral to a transplant nurse if symptoms worsen or do not improve with conservative management. Hyperlipidemia - Assessment: Anselmo is currently taking Pravastatin 40 mg for high cholesterol. - Plan: a. Continue Pravastatin 40 mg daily. b. Encourage Anselmo to maintain a heart-healthy diet and engage in regular physical activity. c. Monitor lipid levels at follow-up visits and adjust medication as needed. Osteoporosis - Assessment: Anselmo is on Prolia injection every six months for osteoporosis. - Plan: a. Continue Prolia injections as prescribed. b. Encourage Anselmo to consume a diet rich in calcium and vitamin D, and engage in weight-bearing exercises. c. Monitor bone density at follow-up visits and adjust treatment as needed. Cardiac Arrhythmia - Assessment: Anselmo reports a heart flutter, not serious. - Plan: a. Monitor for any changes in symptoms or worsening of the heart flutter. b. Consider referral to a car dumper operator if symptoms worsen or new concerns arise. c. Encourage Anselmo to maintain a heart-healthy lifestyle, including regular physical activity and a balanced diet. Pharmacy: [facility]. Medications sent to mail-order pharmacy: [facility] in [place], now [facility]. 09/24/2023 Primary insomnia (ICD-10 - F51.01) 12/25/2023 Primary insomnia (ICD-10 - F51.01) Anxiety - Assessment: The patient reports increased anxiety due to his 's work-related stress and their inability to spend quality time together. His anxiety appears to be exacerbated by his 's frequent illnesses and the need to maintain distance during her sickness. - Plan: - Continue current medication: Sertraline 100 mg daily and Alprazolam as needed. - Encourage the patient to engage in self-care activities and stress management techniques, such as deep breathing exercises, meditation, or physical activity. - Recommend couples counseling or support groups to help both the patient and his cope with their individual and shared stressors. Depression - Assessment: The patient's depression seems to be in remission, with no significant symptoms reported during the visit. - Plan: - Continue current medication: Sertraline 100 mg daily. - Monitor for any changes in mood or depressive symptoms during follow-up appointments. Insomnia - Assessment: The patient reports sleep apnea and is currently taking Zolpidem 10 mg for insomnia. - Plan: - Continue current medication: Zolpidem 10 mg as needed. - Encourage the patient to practice good sleep hygiene, such as maintaining a consistent sleep schedule, creating a relaxing bedtime routine, and avoiding stimulants close to bedtime. Chronic Pain (Back and Knees) - Assessment: The patient reports ongoing back pain and knee pain, for which he has been receiving injections and attending physical therapy. - Plan: - Continue with current pain management plan, including injections and physical therapy as prescribed by the patient's primary care provider or specialist. - Consider referral to a paint roller covermaker if the patient's pain does not improve or worsens. General Health - Assessment: The patient reports stable cholesterol levels and no other significant medical concerns. - Plan: - Encourage the patient to maintain a healthy lifestyle, including regular exercise, a balanced diet, and routine medical check-ups. Follow-up - Plan: - Schedule a follow-up appointment in three months to monitor the patient's progress and adjust treatment plans as needed. - Encourage the patient to contact the clinic if any new concerns or changes in symptoms arise before the next scheduled appointment. 03/24/2024 Primary insomnia (ICD-10 - F51.01) Insomnia - Plan: - Continue zolpidem 10 mg as prescribed. - Reassess sleep quality in 3 months. Depression and Anxiety - Plan: - Continue sertraline 100 mg daily. - Monitor for any changes in mood or anxiety levels. - Reevaluate in 3 months. Dyslipidemia - Plan: - Continue rosuvastatin as prescribed. - Monitor lipid levels and adjust medication if necessary. - Reassess in 3 months. Neuropathic pain - Plan: - Continue pregabalin as prescribed. - Monitor pain levels and adjust medication if necessary. - Reassess in 3 months. Gastroesophageal reflux disease (GERD) - Plan: - Continue lansoprazole as prescribed. - Monitor for any changes in symptoms and adjust medication if necessary. - Reassess in 3 months. Routine health maintenance - Plan: - Perform blood pressure measurement and other routine health checks during the next visit. Follow-up - Plan: - Schedule a follow-up appointment in 3 months (beginning of June) to reassess the patient's conditions and medications. Urine drug screen - Plan: - Obtain a urine sample for drug screening to monitor Xanax use. Medications - Plan: - Continue all current medications as prescribed. - Provide 90-day prescriptions for most medications. 03/24/2024 Irritable bowel syndrome (ICD-10 - K58.9) Insomnia - Plan: - Continue zolpidem 10 mg as prescribed. - Reassess sleep quality in 3 months. Depression and Anxiety - Plan: - Continue sertraline 100 mg daily. - Monitor for any changes in mood or anxiety levels. - Reevaluate in 3 months. Dyslipidemia - Plan: - Continue rosuvastatin as prescribed. - Monitor lipid levels and adjust medication if necessary. - Reassess in 3 months. Neuropathic pain - Plan: - Continue pregabalin as prescribed. - Monitor pain levels and adjust medication if necessary. - Reassess in 3 months. Gastroesophageal reflux disease (GERD) - Plan: - Continue lansoprazole as prescribed. - Monitor for any changes in symptoms and adjust medication if necessary. - Reassess in 3 months. Routine health maintenance - Plan: - Perform blood pressure measurement and other routine health checks during the next visit. Follow-up - Plan: - Schedule a follow-up appointment in 3 months (beginning of June) to reassess the patient's conditions and medications. Urine drug screen - Plan: - Obtain a urine sample for drug screening to monitor Xanax use. Medications - Plan: - Continue all current medications as prescribed. - Provide 90-day prescriptions for most medications. 12/25/2023 Irritable bowel syndrome (ICD-10 - K58.9) Anxiety - Assessment: The patient reports increased anxiety due to his 's work-related stress and their inability to spend quality time together. His anxiety appears to be exacerbated by his 's frequent illnesses and the need to maintain distance during her sickness. - Plan: - Continue current medication: Sertraline 100 mg daily and Alprazolam as needed. - Encourage the patient to engage in self-care activities and stress management techniques, such as deep breathing exercises, meditation, or physical activity. - Recommend couples counseling or support groups to help both the patient and his cope with their individual and shared stressors. Depression - Assessment: The patient's depression seems to be in remission, with no significant symptoms reported during the visit. - Plan: - Continue current medication: Sertraline 100 mg daily. - Monitor for any changes in mood or depressive symptoms during follow-up appointments. Insomnia - Assessment: The patient reports sleep apnea and is currently taking Zolpidem 10 mg for insomnia. - Plan: - Continue current medication: Zolpidem 10 mg as needed. - Encourage the patient to practice good sleep hygiene, such as maintaining a consistent sleep schedule, creating a relaxing bedtime routine, and avoiding stimulants close to bedtime. Chronic Pain (Back and Knees) - Assessment: The patient reports ongoing back pain and knee pain, for which he has been receiving injections and attending physical therapy. - Plan: - Continue with current pain management plan, including injections and physical therapy as prescribed by the patient's primary care provider or specialist. - Consider referral to a paint roller covermaker if the patient's pain does not improve or worsens. General Health - Assessment: The patient reports stable cholesterol levels and no other significant medical concerns. - Plan: - Encourage the patient to maintain a healthy lifestyle, including regular exercise, a balanced diet, and routine medical check-ups. Follow-up - Plan: - Schedule a follow-up appointment in three months to monitor the patient's progress and adjust treatment plans as needed. - Encourage the patient to contact the clinic if any new concerns or changes in symptoms arise before the next scheduled appointment. 09/24/2023 Other Learning About Depression Screening material was printed Major Depressive Disorder - Assessment: Anselmo reports a history of agitation, difficulty concentrating, and trust issues since school. He has been on Sertraline 100 mg for depression and anxiety, which has helped with anger management. Mood is generally not happy and not satisfied with life. - Plan: a. Continue Sertraline 100 mg daily. b. Monitor mood and depressive symptoms at follow-up visits. c. Consider referral to a therapist for additional support and coping strategies. Generalized Anxiety Disorder - Assessment: Anselmo experiences anxiety in large gatherings and crowds, with a history of anxiety attacks. Currently on Alprazolam 0.5 mg. - Plan: a. Continue Alprazolam 0.5 mg as needed for anxiety. b. Encourage Anselmo to practice relaxation techniques and consider engaging in regular physical activity to help manage anxiety. c. Reassess the need for medication adjustments at follow-up visits. Insomnia - Assessment: Anselmo has been taking Zolpidem for insomnia, prescribed by Dr. Larsen. - Plan: a. Continue Zolpidem as prescribed for insomnia. b. Encourage Anselmo to practice good sleep hygiene, including establishing a regular sleep schedule and creating a relaxing bedtime environment. c. Reevaluate the effectiveness of Zolpidem at follow-up visits. Gastroesophageal Reflux Disease (GERD) and Hiatal Hernia - Assessment: Anselmo reports a weak stomach, GERD, acid reflux, and a high angle hernia found during endoscopy. - Plan: a. Recommend [id number] antacids or H2 blockers for symptom management. b. Encourage Anselmo to avoid trigger foods and maintain a healthy weight. c. Consider referral to a transplant nurse if symptoms worsen or do not improve with conservative management. Hyperlipidemia - Assessment: Anselmo is currently taking Pravastatin 40 mg for high cholesterol. - Plan: a. Continue Pravastatin 40 mg daily. b. Encourage Anselmo to maintain a heart-healthy diet and engage in regular physical activity. c. Monitor lipid levels at follow-up visits and adjust medication as needed. Osteoporosis - Assessment: Anselmo is on Prolia injection every six months for osteoporosis. - Plan: a. Continue Prolia injections as prescribed. b. Encourage Anselmo to consume a diet rich in calcium and vitamin D, and engage in weight-bearing exercises. c. Monitor bone density at follow-up visits and adjust treatment as needed. Cardiac Arrhythmia - Assessment: Anselmo reports a heart flutter, not serious. - Plan: a. Monitor for any changes in symptoms or worsening of the heart flutter. b. Consider referral to a car dumper operator if symptoms worsen or new concerns arise. c. Encourage Anselmo to maintain a heart-healthy lifestyle, including regular physical activity and a balanced diet. Pharmacy: [facility]. Medications sent to mail-order pharmacy: [facility] in [place], [facility]. Plan Of Treatment Next Appt Details Provider Name:Poli Jacobs , 06/21/2024 01:00:00 PM, [address], [address], [place], [address], Insurance Providers Payer Name Payer Address Payer Phone Subscriber Number Group Number Insured Name Patient Relationship to Insured Coverage Start Date Coverage End Date [employer] [address] [address] [place] [address] [phone] [id number] EileenAnselmo iverson Self - patient is the insured Medical (General) History Medical History History ICD Code abdominal aortic aneurysm: No atrial fibrillation: No chronic fatigue syndrome: No essential tremor: No hyperlipidemia: No hypertension: No Parkinson's disease: No restless leg syndrome: No stroke: No subdural hematoma: No type 1 diabetes mellitus: No type 2 diabetes mellitus: No vitamin B12 deficiency: No vitamin D deficiency: No
--- OUTSIDE RECORDS SUMMARY | 2024-06-08 19:27 | XMS_ITS | Encounter Summary ---
Author Organization [facility] Address [address] [place] [address] Care Team Providers Care White Washer Piler Name Role Phone Gina Alvarenga DO Primary Care Provider [phone] Encounter Details Date Type Department Care Team (Late st Contact Info) Description 02/08/2004 Outpatient Historical [address] [place] [address] Soco Ramirez MD Social History Tobacco Use Types Packs/Day Years Used Date Smoking Tobacco: Never Assessed Sex and Gender Information Value Date Recorded Sex Assigned at Not on file Legal Sex Male 3:22 AM [employer] Gender Identity Not on file Sexual Orientation Not on file documented as of this encounter Last Filed Vital Signs Vital Sign Reading Time Taken Comments Blood Pressure 128/80 02/08/2004 2:00 PM [employer] Pulse 88 02/08/2004 2:00 PM [employer] Temperature 36.6 C (97.8 F) 02/08/2004 2:00 PM [employer] Respiratory Rate 18 02/08/2004 2:00 PM [employer] Oxygen Saturation - - Inhaled Oxygen Concentration - - Weight - - Height - - Body Mass Index - - documented in this encounter Plan of Treatment Not on file documented as of this encounter Visit Diagnoses Not on filedocumented in this encounter Care Teams White Washer Piler Relationship Specialty Start Date End Date Gina Alvarenga DO PCP - General Internal Medicine 10/06/09 documented as of this encounter
--- OUTSIDE RECORDS SUMMARY | 2024-06-08 19:27 | XMS_ITS ---
Author Organization [facility] Address [address] [place] [address] Care Team Providers Care Cooker Soda Name Role Phone Saima FELICIANO, Dino Primary Care Provider Jamarcus Johnson Unavailable [phone] Allergies No Known Allergies REASON FOR VISIT ARC follow-up; worse over the past year, continues allergy avoidance, on meds, and considering SCIT. Feels nasal sprays are beneficial in controlling cough, Increased cough only in the setting of PND. No other history of lower airway issues Medications Medication SIG (Take, Route, Frequency, Duration) Notes Start Date End Date Status Pregabalin 200 MG for 90 Days Active Sertraline HCl 100 MG for 90 Days Active Lansoprazole 30 MG for 90 Days Active Azelastine HCl 137 MCG/SPRAY 2 spray(s) intranasally 2 times a day for 30 days 07/28/2023 Active Fluticasone Propionate 50 MCG/ACT 2 spray(s) in each nostril twice a day for 90 days Active Fluticasone Propionate 50 MCG/ACT 2 sprays in each nostril Nasally Twice a day for 30 days Active Zolpidem Tartrate 5 MG 1 tab(s) orally o nce a day (at bedtime) Active Azelastine HCl 137 MCG/SPRAY 2 sprays in each nostril Nasally Twice a day for 30 days Active ALPRAZolam 0.5 MG for 30 Days Active Pravastatin Sodium 40 MG 1 tab(s) orally once a day Active NASAL WASHES N/A as directed intranas ally as needed for 30 days Active CETIRIZINE 10 mg 1 tab(s) orally once a day for 30 days Active Azelastine HCl 137 MCG/SPRAY 2 spray(s) intranasally 2 times a day for 90 days Active Cetirizine HCl 10 MG 1 tab(s) orally onc e a day for 30 days Active Fluticasone Propionate 50 MCG/ACT 2 spray(s) in each nostril twice a day for 30 days Active Social History Tobacco Use: Social History Observation Description Date Details (start date - stop date) Never Smoker NA - NA Smoking Smart Form: Question Answer Notes Are you a: never smoker Tobacco Control (Standard) Question Answer Notes Tobacco use: Nonsmoker Vital Signs Blood pressure systolic 109 mm Hg 11/24/19 24 Blood pressure diastolic 75 mm Hg 024 Height 70 in 11/24/2023 Weight 187.6 lbs 11/24/2023 BMI 26.91 kg/m2 11/24/2023 Oximetry 96 % 11/24/2023 Encounters Encounter Location Date Provider Diagnosis [facility] [address] [address] 11/24/2023 Jamarcus Ramirez Allergic rhinitis du e to pollen J30.1 ; Allergic rhinitis due to animal (cat) (dog) hair and dander J30.81 ; Other allergic rhinitis J30.89 ; Other chronic allergic conjunctivitis H10.45 and Chronic cough R05.3 Assessments Encounter Date Diagnosis (ICD Code) Assessment Notes Treatment Notes Treatment Clinical Notes Section Notes 11/24/2023 Allergic rhinitis due to pollen (ICD-10 - J30.1) Anselmo clearly suffers from atopic disease based upon our skin testing and clinical history. Accordingly, we have introduced a new, aggressive medication regimen, discussed nasal washes and allergy-specifi c avoidance measures. He does feel benefit with use of azelastine. Only using Flonase and Azelastine once a day. Advasied increasing to twice a day. If symptoms persist would highly conisider SCIT which he is actively doing so. Return in 6 months for E&M 11/24/2023 Allergic rhinitis due to animal (cat) (dog) hair and dander (ICD-10 - J30.81) Follow allergen avoidance, meds and consider SCIT as an adjunctive treatment to current regimen 11/24/2023 Other allergic rhinitis (ICD-10 - J30.89) Follow allergen avoidance, meds and consider SCIT as an adjunctive treatment to current regimen 11/24/2023 Other chronic allergic conjunctivitis (ICD-10 - H10.45) Given ocular signs and symptoms I encouraged allergy avoidance measures and meds as above. If symptoms persist, consider adding additional medications including intraocular antihistamine/m ast cell stabilizer, PRN and consider SCIT as an adjunctive measure 11/24/2023 Chronic cough (ICD-10 - R05.3) Cough only in the setting of PND without other history concerning for lower airway issues. Plan to treat as above. Restart azelastine as above. Consider trial of SUBHASH if issues persisit Plan Of Treatment Medication Medication Name Sig Start Date Stop Date Notes Fluticasone Propionate 50 MCG/ACT 2 sprays in each nostril Nasally Twice a day for 30 days Azelastine HCl 137 MCG/SPRAY 2 sprays in each nostril Nasally Twice a day for 30 days NASAL WASHES N/A as directed intranas ally as needed for 30 days CETIRIZINE 10 mg 1 tab(s) orally once a day for 30 days Treatment Notes Assessment Notes Allergic rhinitis due to pollen Anselmo vela early suffers from atopic disease based upon our skin testing and clinical history. Accordingly, we have introduced a new, aggressive medication regimen, discussed nasal washes and allergy-specific avoidance measures. He does feel benefit with use of azelastine. Only using Flonase and Azelastine once a day. Advasied increasing to twice a day. If symptoms persist would highly conisider SCIT which he is actively doing so. Return in 6 months for E&M Allergic rhinitis due to ani mal (cat) (dog) hair and dander Follow allergen avoidance, meds and consider SCIT as an adjunctive treatment to current regimen Other allergic rhinitis Follow allergen avoidance, meds and consider SCIT as an adjunctive treatment to current regimen Other chronic allergic conjunctivitis Gi porter ocular signs and symptoms I encouraged allergy avoidance measures and meds as above. If symptoms persist, consider adding additional medications including intraocular antihistamine/mast cell stabilizer, PRN and consider SCIT as an adjunctive measure Chronic cough Cough only in the se tting of PND without other history concerning for lower airway issues. Plan to treat as above. Restart azelastine as above. Consider trial of SUBHASH if issues persisit Next Appt Details Follow Up: 6 Months, Reason: Evaluation and Management Provider Name:Delmi Corona carla, 11/22/2024 10:30:00 AM, [address] [facility] [address], [place], [address], Progress Notes * Anselmo BAKERDOB:1960 (63 yo M)Acc No.[id number]:11/24/2023 Progress Notes Patient: Anselmo PAREDES Provider: Avril Ramirze PA-C :1960 A ge:63 Y S ex:Male Date:11/24/2023 Address:[address] [place] [address], [facility] Pcp:Dino Landaverde MD Subjective: * Chief Complaints: * A RC follow-up; worse over the past year, continues allergy avoidance, on meds, and considering SCIT. Feels nasal sprays are beneficial in controlling coughIncreased cough only in the setting of PND. No other history of lower airway issues * HPI: * Introduction: I had the pleasure of seeing May Baker, a 63 y/o male with history of ARC returning for interval evaluation and management. He is alone for today's visit.Aeroallergen skin testing was completed at first visit, and was positive to multiple seasonal and perennial allergens. He reports onset of increased sinus drainage and related cough for the past year. This started to worsen in April. He does have 2 dogs at home and feels they may be a contributing factor. Feels like getting out of the house is beneficial. His sister and brother has seasonal allergies. Treating with daily Zyrtec, Flonase, and Azelastine daily with some b enefit. Still with PND, primarly in the setting out working outside. His cough is only in the setting of drainage. He did notice resolting in cough after starting azelastine though recently ran out resulting in return of cough. No other history of lower airway issues. He did undergo sinus surgery in 1996 with benefit. Today, he reports no fevers, chills, night sweats or other constitutional symptoms. * ROS: A LLERGY: Positive p er the HPI and history, otherwise unremarkable.?runny nose Y es. s cratchy throat Y es. i tchy eyes N o. e ar fullness?No. s inus congestion Y es. S PECIAL SENSES: Positve for n one. c ataracts Y es. g laucoma?No. l oss of hearing N o. i tching in ears N o. r inging in ears Y es.?loss of balance N o. d ry eyes N o. e xcessive tearing N o. i tching eyes N o. l oss of taste N o. c onjunctivitis N o. e ar infections N o.? C ONSTITUTIONAL: weight gain N o. l oss of appetite N o. f ever?No. w eakness N o. w eight loss N o. f atigue N o. n ight sweats?No. P ositive for n one. E NT: cold N o. c ough Y es. e pistaxis N o. h earing loss N o. c hange in voice N o. s ore throat N o. r inging in ears?Yes. s inus pain N o. P ositive p er the HPI and history, otherwise unremarkable. R ESPIRATORY: shortness of breath N o. c hest pain N o. c hest congestion N o. c ough Y es. P ositive p er the HPI and history, otherwise unremakable. O PHTHALMOLOGY: diminished vision N o. e ye irritation N o. d rainage from eyes N o. b lurring of vision Y es. s easonal eye sx N o. P ositive for p er the HPI and history, otherwise unremarkable. i tching N o. s ensitivity to light Y es. d ischarge N o. w atering N o. s welling of the eyelids N o. r edness N o. E NDOCRINOLOGY: fatigue N o. p olydipsia N o. p olyuria N o. w eight loss N o. s leep disturbance Y es. c old intolerance N o. h eat intolerance Y es. d iabetes N o. P ositive for n one. C ARDIOLOGY: chest pain N o. p alpitations N o. l eg edema?No. d izziness N o. s hortness of breath N o. P ositive for n one. ? G ASTROENTEROLOGY: dysphagia N o. a bdominal pain N o. n ausea?No. v omiting N o. c onstipation N o. d iarrhea N o. b lood in stool?No. i ndigestion Y es. h emorrhoids N o. P ositive for n one. U ROLOGY: difficulty urinating N o. b lood in urine N o. f requent urination N o. u rinary incontinence N o. r ecurrent UTI N o. P ositive for n one. D ERMATOLOGY: rash N o. m ole N o. l umps N o. d ry or sensitive skin Y es. h chantal (urticaria) N o. a cne N o. s kin cancer N o. P ositive for p er the HPI and history, otherwise unremakable. N EUROLOGY: headache N o. t ingling numbness N o. s eizures?No. i nsomnia Y es. m jayson loss N o. d izziness N o. g ait abnormality N o. P ositive for n one. H EMATOLOGY/LYMPH: Positive for n one. M USCULOSKELETAL: joint swelling N o. j oint pain Y es. l eg cramps N o. j oint stiffness N o. s ciatica Y es. o steoporosis Y es. f racture Y es. c arpal tunnel N o. g out N o. P ositive for n one. ? P SYCHOLOGY: high stress level Y es. d epression N o. s leep disturbances Y es. s uicidal ideation N o. e ating disorder N o. m ental or physical abuse N o. a nxiety Y es. P ositive for n one. M AMY REPRODUCTIVE: difficulty with erection N o. d iminished sexual drive?Yes. p enile discharge N o. i nfertility N o. A ll other review of systems per the HPI and history, otherwise unremarkable. * Medical History: * Surgical History: N o Surgical History documented. * Hospitalization/Major Diagno stic Procedure: N o Hospitalization History. * Family History: F ather: , Yes. M other: alive, Yes, diagnosed with Atopic asthma w/o mention of status asthmaticus or acute exacerbation. P aternal Grand Father: Yes. P aternal Grand Mother: Yes. S iblings: Yes, diagnosed with Atopic asthma w/o mention of status asthmaticus or acute exacerbation. C hilen: Yes. There is no other family history of cancer, CF, diabetes, emphysema or heart disease. * Social History: M arital Status What is your marital status? m arried A lcohol Screening Do you ever drink alcoholic beverages? N o S moking Have you ever smoked tobacco: n ever smoked Are you a : n ever smoker S moking Smart Form Are you a: n ever smoker R ecreational drug use Have you ever used recreational drugs? N o D etails on consumption of certain products? Do you regularly consume products with aspartame; Equal or NutraSweet? N o Do you regularly consume products with artificial coloring??No Have you ever noticed worsening of your rash with these food items? N o E xercise What kind(s) of exercise do you perform regularly? w alking,age-appropriate participation in physical activites How often do you perform this exercise? d aily A re any of the following personal care products containing fragrance, dye or preservatives used regularly? Shampoo: Y es Conditioner: N o Soap: Y es Laundry Detergent: N o Fabric Softener: N o Deodorant: Y es Perfume, cologne, after shave: N o Air freshners or other scented products: N o Hair coloring dyes or rinses: N o Other: N o O ccupation Are you currenly employed? N o Have you had any job with high exposure to fumes, chemicals, dust or other noxious substances? Y es Are you currently a student? N o E nvironmental History Living environment: p rivate home Where is the home located? r ural Age of home: 2 0 How long have you lived there? 5 years or more How many people live in the home? 2 H ome description Basement: Y es Any water damage in basement? N o Smokers in the home? N o Smokers outside the home? N o Air Conditioning? Y es Central Air? Y es Forced air heating? Y es Gas or electric? g as Fireplace? N o Wood burning stove? N o Do you vacuum the home? Y es Air purification systems? Y es Is it a HEPA (high-efficiency particulate air filter)? N o Ionizer on air purification system? Y es Pillow and mattress dust-proof encasings? N o Do you use a humidifier? N o Do you own any pets? Y es What kind(s)? (click all that apply) d og Where do your pets sleep? b edroom,anywhere in the house Fabric softeners used? N o Plants in the home? N o Is there carpeting in your bedroom? Y es Age of carpet? 2 0 Do you have kwen-ma-oqjd carpeting? Y es What is the age of your carpeting? 2 0 What is the age of your mattress (years)? 6 What material(s) are used to manufacture your bedding and pillow? s ynthetic,natural fiber (e.g. cotton) What is the age of your pillow (years)? 1 What material are your bedding items made of? s ynthetic,natural fiber (e.g. cotton) Do you sleep with quilts or blankets or a duvet? Y es What material? s ynthetic,natural fiber (e.g. cotton) How many dogs? 2 T obacco Control (Standard) Tobacco use: N onsmoker * Medications: T akingCETIRIZINE 10 mg tablet 1 tab(s) orally once a day NASAL WASHES N/A 1 quart of sterilized tap water or distilled water, 1 tsp NaCl, 1 pinch of baking soda as directed intranasally as needed Cetirizine HCl 10 MG Tablet 1 tab(s) orally once a day Fluticasone Propionate 50 MCG/ACT Suspension 2 spray(s) in each nostril twice a day Pravastatin Sodium 40 MG Tablet 1 tab(s) orally once a day Zolpidem Tartrate 5 MG Tablet 1 tab(s) orally once a day (at bedtime) ALPRAZolam 0.5 MG Tablet Pregabalin 200 MG Capsule Sertraline HCl 100 MG Tablet Lansoprazole 30 MG Capsule Delayed Release Azelastine HCl 137 MCG/SPRAY Solution 2 spray(s) intranasally 2 times a day Fluticasone Propionate 50 MCG/ACT Suspension 2 spray(s) in each nostril twice a day Azelastine HCl 137 MCG/SPRAY Solution 2 spray(s) intranasally 2 times a day Azelastine HCl 137 MCG/SPRAY Solution 2 sprays in each nostril Nasally Twice a day Fluticasone Propionate 50 MCG/ACT Suspension 2 sprays in each nostril Nasally Twice a day Medication List reviewed and reconciled with the patientTaking CETIRIZINE 10 mg tablet 1 tab(s) orally once a day Taking NASAL WASHES N/A 1 quart of sterilized tap water or distilled water, 1 tsp NaCl, 1 pinch of baking soda as directed intranasally as needed Taking Cetirizine HCl 10 MG Tablet 1 tab(s) orally once a day Taking Fluticasone Propionate 50 MCG/ACT Suspension 2 spray(s) in each nostril twice a day Taking Pravastatin Sodium 40 MG Tablet 1 tab(s) orally once a day Taking Zolpidem Tartrate 5 MG Tablet 1 tab(s) orally once a day (at bedtime) Taking ALPRAZolam 0.5 MG Tablet Taking Pregabalin 200 MG Capsule Taking Sertraline HCl 100 MG Tablet Taking Lansoprazole 30 MG Capsule Delayed Release Taking Azelastine HCl 137 MCG/SPRAY Solution 2 spray(s) intranasally 2 times a day Taking Fluticasone Propionate 50 MCG/ACT Suspension 2 spray(s) in each nostril twice a day Taking Azelastine HCl 137 MCG/SPRAY Solution 2 spray(s) intranasally 2 times a day Taking Azelastine HCl 137 MCG/SPRAY Solution 2 sprays in each nostril Nasally Twice a day Taking Fluticasone Propionate 50 MCG/ACT Suspension 2 sprays in each nostril Nasally Twice a day Medication List reviewed and reconciled with the patient * Allergies: N .K.D.A.no[Allergies Verified] Objective: * Vitals: B P:109/75mm Hg, HR:73/min, Pulse Oximetry:96%, CU-Q2oL: 23, UAS7: 0, Ht: 70 in, Wt: 187.6 lbs, BMI:26.91Index. * Examination: G eneral examination: General appearance: p leasant, well-developed, well-nourished. HEENT: p upils equal, round, and reactive to light and accommodation, conjunctiva are injected bilaterally, no tenderness to palpation of the sinuses, TM's without evidence of acute infection, turbinates 2+ swollen and pale inferiorly bilaterally, clear rhinorrhea is present, no polyps noted, no septal perforation, posterior oropharynx is erythematous and cobblestoning is present, erythema on pharyngeal wall, no exudates, no tongue swelling, and uvula is midline. Oral cavity: n ormal, no lesions. Neck, thyroid : s upple, non-tender, no anterior cervical lymphadenopathy. Breasts : n ot performed. Heart: R RR, S1-S2, no murmurs, no rubs, no gallops. Lungs: c lear to auscultation and percussion in all lung grossman, no wheezes or crackles. Abdomen: s oft, NT/ND, normal active bowel sounds. Neurologic exam: u nremarkable. Skin: n ormal, no rash, dermatographism, urticaria, angioedema. Peripheral pulses: n ormal (2+) bilaterally. Back: n ormal. Extremities: n ormal ROM, no clubbing, no cyanosis, no edema. Genitalia: n ot performed. Assessment: * Assessment: 1. A llergic rhinitis due to pollen - J30.1 (Primary) 2 . A llergic rhinitis due to animal (cat) (dog) hair and dander - J30.81 3 . O ther allergic rhinitis - J30.89 4 . O ther chronic allergic conjunctivitis - H10.45 5 . C hronic cough - R05.3 Plan: * Treatment: 2. A llergic rhinitis due to animal (cat) (dog) hair and dander Notes: Follow allergen avoidance, meds and consider SCIT as an adjunctive treatment to current regimen 3. O ther allergic rhinitis Notes: Follow allergen avoidance, meds and consider SCIT as an adjunctive treatment to current regimen 4. O ther chronic allergic conjunctivitis Notes: Given ocular signs and symptoms I encouraged allergy avoidance measures and meds as above. If symptoms persist, consider adding additional medications including intraocular antihistamine/mast cell stabilizer, PRN and consider SCIT as an adjunctive measure 5. C hronic cough Notes: Cough only in the setting of PND without other history concerning for lower airway issues. Plan to treat as above. Restart azelastine as above. Consider trial of SUBHASH if issues persisit ? * Procedure Codes: G 8427 DOC MEDS VERIFIED W/PT OR RE * Preventive Medicine: Counseling: M edication instruction: W atch for side effects of prescribed medications, Nasal steroid/antihistamine instruction: avoid septum. E ducation: G ENERAL EDUCATION: Our staff spent an additional 30 minutes in direct contact with the patient educating them on their current diagnoses and proper treatment and prevention of symptoms and the proper use of medications. E ducation 2: A RC EDUCATION: Our staff discussed the appropriate allergen avoidance measures and medication utilization including upper airway hygiene with daily nasal washes given the patient's clinical status and diagnoses. SCIT EDUCATION: Discussed allergy immunotherapy including the relative risks, benefits and alternatives to this treatment as an adjunctive measure to current therapy, Allergy Immunotherapy: Risks: bleeding, infection, allergic reaction, anaphylaxis = severe allergic reaction that can cause ; Benefits: reduced need for medications, improved symptoms, disease modification. Alternatives: watch/wait, change medication regimen, improve allergy avoidance measures, Our staff discussed the warning signs of anaphylaxis and the indications to use self-injectable epinephrine and seek urgent or emergent care. P atient education material sent to portal? Y es C are goal follow up plan BMI management provided Y es Above Normal BMI Follow-up D ietary management education, guidance, and counseling * Follow Up: 6 Months (Reason: Evaluation and Management) * Billing Information: * Visit Code: 90434 Office Visit, Est Pt., Level 4. Modifiers: 25 * Procedure Codes: G8427 DOC MEDS VERIFIED W/PT OR RE. * Sign off status: Completed true * Provider: Avril Ramirez PA-C Date: 0 11/24/2023 Generated for Walter valencia/Colin/Tip on: 0 06/08/2024 07:26 PM CDT History and Physical Notes * HPI (History of Present Illness) Category Sub-Category Detail Notes Category Not es *Introduction I had the pleasure o f seeing Anselmo Baker, a 63 y/o male with history of ARC returning for interval evaluation and management. He is alone for today's visit. Aeroallergen skin testing was completed at first visit, and was positive to multiple seasonal and perennial allergens. He reports onset of increased sinus drainage and related cough for the past year. This started to worsen in April. He does have 2 dogs at home and feels they may be a contributing factor. Feels like getting out of the house is beneficial. His sister and brother has seasonal allergies. Treating with daily Zyrtec, Flonase, and Azelastine daily with some benefit. Still with PND, primarly in the setting out working outside. His cough is only in the setting of drainage. He did notice resolting in cough after starting azelastine though recently ran out resulting in return of cough. No other history of lower airway issues. He did undergo sinus surgery in 1996 with benefit. Today, he reports no fevers, chills, night sweats or other constitutional symptoms Examination Category Sub-Category Detail Notes Category Not es General examination HEENT: pupils equal , round, and reactive to light and accommodation, conjunctiva are injected bilaterally, no tenderness to palpation of the sinuses, TM's without evidence of acute infection, turbinates 2+ swollen and pale inferiorly bilaterally, clear rhinorrhea is present, no polyps noted, no septal perforation, posterior oropharynx is erythematous and cobblestoning is present, erythema on pharyngeal wall, no exudates, no tongue swelling, and uvula is midline Neck, thyroid : supple, non-tender, no anterior cervical lymphadenopathy Heart: RRR, S1-S2, no murmu rs, no rubs, no gallops Lungs: clear to auscultatio n and percussion in all lung grossman, no wheezes or crackles Abdomen: soft, NT/ND, normal active bowel sounds Extremities: normal ROM, no clubb ing, no cyanosis, no edema General appearance: pleasant, well-devel oped, well-nourished Skin: normal, no rash, jada matographism, urticaria, angioedema Neurologic exam: unremarkable Oral cavity: normal, no lesions Breasts : not performed Peripheral pulses: normal (2+) bilatera lly Back: normal Genitalia: not performed
--- OUTSIDE RECORDS SUMMARY | 2024-06-08 19:27 | XMS_ITS | Encounter Summary ---
Author Organization [facility] Address [address] [place] [address] Care Team Providers Care Shuttler Name Role Phone Gina Alvarenga DO Primary Care Provider [phone] Encounter Details Date Type Department Care Team (Late st Contact Info) Description 02/02/2004 Outpatient Historical [address] 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
--- OUTSIDE RECORDS SUMMARY | 2024-06-08 19:27 | XMS_ITS | Patient Health Record ---
Author Organization [facility] Address [address] [place] [address] Care Team Providers Care Chief Administrative Officer Name Role Phone Saima FELICIANO, Dino Primary Care Provider Unavaila Jamarcus Hernandez Unavailable [phone] [facility], Provider Unavailable Unavailab le Allergies No Known Allergies Reason For Referral No Information Medications Medication SIG (Take, Route, Frequency, Duration) Notes Start Date End Date Status Sertraline HCl 100 MG for 90 Days Active Lansoprazole 30 MG for 90 Days Active Azelastine HCl 137 MCG/SPRAY 2 sprays in each nostril Nasally Twice a day for 30 days Active Azelastine HCl 137 MCG/SPRAY 2 sprays in each nostril Nasally Twice a day for 30 days Active Xyzal Allergy 24HR A ctive NASAL WASHES N/A as directed intranas ally as needed for 30 days Active Cetirizine HCl 10 MG 1 tab(s) orally onc e a day for 30 days Active Fluticasone Propionate 50 MCG/ACT 2 spray(s) in each nostril twice a day for 90 days Not-Taking Fluticasone Propionate 50 MCG/ACT 2 sprays in each nostril Nasally Twice a day for 30 days Active Fluticasone Propionate 50 MCG/ACT 2 spray(s) in each nostril twice a day for 30 days Active Pravastatin Sodium 40 MG 1 tab(s) orally once a day Active Zolpidem Tartrate 5 MG 1 tab(s) orally o nce a day (at bedtime) Active CETIRIZINE 10 mg 1 tab(s) orally once a day for 30 days Active ALPRAZolam 0.5 MG for 30 Days Active Pregabalin 200 MG for 90 Days Active Social History Tobacco Use: Social History Observation Description Date Details (start date - stop date) Never Smoker NA - NA Smoking Smart Form: Question Answer Notes Are you a: never smoker Tobacco Control (Standard) Question Answer Notes Tobacco use: Nonsmoker Problems Problem Type SNOMED Code ICD Code Onset Dates Problem Status W/U Status Risk Notes Problem Chronic allergic conjunctivitis (74133456) Other chronic allergic conjunctivitis (H10.45) Active confirmed Problem Allergic rhinitis caused by pollen (disorder) (45363147) Allergic rhinitis due to pollen (J30.1) Active confirmed Problem Allergic rhinitis (82599924) Other allergic rhinitis (J30.89) Active confirmed Problem Allergic rhinitis caused by animal hair and dander (357851331011602) Allergic rhinitis due to animal (cat) (dog) hair and dander (J30.81) Active confirmed Problem Chronic cough (46912521) Chronic cough (R05.3) Active confirmed Vital Signs Respiratory Rate 16 /min 07/28/2023 Oximetry 96 % 05/24/2024 Blood pressure diastolic 74 mm Hg 05/24/2024 Height 70 in 05/24/2024 Blood pressure systolic 120 mm Hg 05/24/2024 Weight 205.6 lbs 05/24/2024 BMI 29.5 kg/m2 05/24/2024 Encounters Encounter Location Date Provider Diagnosis [address] [address] 08/30/2023 Provider ZZ-Migration Allergic rhinitis due to pollen J30.1 [facility] [address] [place] [address] 06/24/2023 Jamarcus Ramirez Allergic rhinitis du e to pollen J30.1 ; Allergic rhinitis due to animal (cat) (dog) hair and dander J30.81 ; Other allergic rhinitis J30.89 ; Other chronic allergic conjunctivitis H10.45 and Chronic cough R05.3 [facility] [address] [facility] [employer] [address] [address] 07/28/2023 Jamarcus Ramirez Allergic rhinitis du e to pollen J30.1 ; Allergic rhinitis due to animal (cat) (dog) hair and dander J30.81 ; Other allergic rhinitis J30.89 ; Other chronic allergic conjunctivitis H10.45 and Chronic cough R05.[address] [address] 09/29/2023 Jamarcus James Allergic rhinitis du e to pollen J30.1 ; Allergic rhinitis due to animal (cat) (dog) hair and dander J30.81 ; Other allergic rhinitis J30.89 ; Other chronic allergic conjunctivitis H10.45 and Chronic cough R05.[address] [address] 11/24/2023 Jamarcus Ramirez Allergic rhinitis du e to pollen J30.1 ; Allergic rhinitis due to animal (cat) (dog) hair and dander J30.81 ; Other allergic rhinitis J30.89 ; Other chronic allergic conjunctivitis H10.45 and Chronic cough R05.[address] [address] 05/24/2024 Jamarcus Ramirez Allergic rhinitis du e to pollen J30.1 ; Allergic rhinitis due to animal (cat) (dog) hair and dander J30.81 ; Other allergic rhinitis J30.89 ; Other chronic allergic conjunctivitis H10.45 and Chronic cough R05.[address] [address] 06/25/2023 Jamarcus Ramirez [address] [address] 07/29/2023 Jamarcus Ramirez [address] [address] 03/24/2024 Jamarcus Ramirez Allergic rhinitis du e to pollen J30.1 Assessments Encounter Date Diagnosis (ICD Code) Assessment Notes Treatment Notes Treatment Clinical Notes Section Notes 06/24/2023 Allergic rhinitis due to pollen (ICD-10 - J30.1) Given the history and symptoms, skin testing was performed to common aeroallergens to determine atopic status. Anselmo clearly suffers from atopic disease based upon our skin testing and clinical history. Accordingly, we have introduced a new, aggressive medication regimen, discussed nasal washes and allergy-specific avoidance measures. We also discussed adjunctive therapies including subcutaneous, specific allergen immunotherapy as relates to the treatment and prevention of atopic disease. He is currently considering the risks, benefits and alternatives to this care. Risks: bleeding, infection, allergic reaction, anaphylaxis; Benefits: reduced need for medications, improved symptoms, disease modification. Alternatives: watch/wait, change medication regimen, improve allergy avoidance measures. Follow-up in 1 month for interval evaluation and management 06/24/2023 Allergic rhinitis due to animal (cat) (dog) hair and dander (ICD-10 - J30.81) Follow allergen avoidance, meds and consider SCIT as an adjunctive treatment to current regimen 07/28/2023 Allergic rhinitis due to pollen (ICD-10 - J30.1) Anselmo clearly suffers from atopic disease based upon our skin testing and clinical history. Accordingly, we have introduced a new, aggressive medication regimen, discussed nasal washes and allergy-specific avoidance measures. Currently overcoming URI for the past week with increased sinus congesiton and PND. Will plan to add azelastine for additional benefit. If symptoms persist would conisider SCIT 07/28/2023 Allergic rhinitis due to animal (cat) (dog) hair and dander (ICD-10 - J30.81) Follow allergen avoidance, meds and consider SCIT as an adjunctive treatment to current regimen 08/30/2023 Allergic rhinitis due to pollen (ICD-10 - J30.1) 09/29/2023 Allergic rhinitis due to pollen (ICD-10 - J30.1) Anselmo clearly suffers from atopic disease based upon our skin testing and clinical history. Accordingly, we have introduced a new, aggressive medication regimen, discussed nasal washes and allergy-specific avoidance measures. He does feel benefit with use of azelastine. Off for the past few days with increased cough so recommend restarting. If symptoms persist would conisider SCIT 09/29/2023 Allergic rhinitis due to animal (cat) (dog) hair and dander (ICD-10 - J30.81) Follow allergen avoidance, meds and consider SCIT as an adjunctive treatment to current regimen 11/24/2023 Allergic rhinitis due to pollen (ICD-10 [...] as an adjunctive treatment to current regimen 03/24/2024 Allergic rhinitis due to pollen (ICD-10 - J30.1) 05/24/2024 Allergic rhinitis due to pollen (ICD-10 - J30.1) Anselmo clearly suffers from atopic disease based upon our skin testing and clinical history. Accordingly, we have introduced a new, aggressive medication regimen, discussed nasal washes and allergy-specific avoidance measures. He feels the most benefit with use of azelastine. Here recently restarting on Xyzal and Flonase. Advasied increasing nasal sprays to twice a day for upcoming Spring season. If symptoms persist would highly conisider SCIT which he is actively doing so. Return in 6 months for E&M 05/24/2024 Allergic rhinitis due to animal (cat) (dog) hair and dander (ICD-10 - J30.81) Follow allergen avoidance, meds and consider SCIT as an adjunctive treatment to current regimen 05/24/2024 Other allergic rhinitis (ICD-10 - J30.89) Follow allergen avoidance, meds and consider SCIT as an adjunctive treatment to current regimen 11/24/2023 Other allergic rhinitis (ICD-10 - J30.89) Follow allergen avoidance, meds and consider SCIT as an adjunctive treatment to current regimen 09/29/2023 Other allergic rhinitis (ICD-10 - J30.89) Follow allergen avoidance, meds and consider SCIT as an adjunctive treatment to current regimen 07/28/2023 Other allergic rhinitis (ICD-10 - J30.89) Follow allergen avoidance, meds and consider SCIT as an adjunctive treatment to current regimen 06/24/2023 Other allergic rhinitis (ICD-10 - J30.89) Follow allergen avoidance, meds and consider SCIT as an adjunctive treatment to current regimen 06/24/2023 Other chronic allergic conjunctivitis (ICD-10 - H10.45) Given ocular signs and symptoms I encouraged allergy avoidance measures and meds as above. If symptoms persist, consider adding additional medications including intraocular antihistamine/mas t cell stabilizer, PRN and consider SCIT as an adjunctive measure 09/29/2023 Other chronic allergic conjunctivitis (ICD-10 - H10.45) Given ocular signs and symptoms I encouraged allergy avoidance measures and meds as above. If symptoms persist, consider adding additional medications including intraocular antihistamine/mas t cell stabilizer, PRN and consider SCIT as an adjunctive measure 07/28/2023 Other chronic allergic conjunctivitis (ICD-10 - H10.45) Given ocular signs and symptoms I encouraged allergy avoidance measures and meds as above. If symptoms persist, consider adding additional medications including intraocular antihistamine/mas t cell stabilizer, PRN and consider SCIT as an adjunctive measure 11/24/2023 Other chronic allergic conjunctivitis (ICD-10 - H10.45) Given ocular signs and symptoms I encouraged allergy avoidance measures and meds as above. If symptoms persist, consider adding additional medications including intraocular antihistamine/mas t cell stabilizer, PRN and consider SCIT as an adjunctive measure 05/24/2024 Other chronic allergic conjunctivitis (ICD-10 - H10.45) Given ocular signs and symptoms I encouraged allergy avoidance measures and meds as above. If symptoms persist, consider adding additional medications including intraocular antihistamine/mas t cell stabilizer, PRN and consider SCIT as an adjunctive measure 11/24/2023 Chronic cough (ICD-10 - R05.3) Cough only in the setting of PND without other history concerning for lower airway issues. Plan to treat as above. Restart azelastine as above. Consider trial of SUBHASH if issues persisit 05/24/2024 Chronic cough (ICD-10 - R05.3) Cough only in the setting of PND without other history concerning for lower airway issues. Plan to treat as above. Increase naal sprays as above.. Consider trial of SUBHASH if issues persisit 09/29/2023 Chronic cough (ICD-10 - R05.3) Cough only in the setting of PND without other history concerning for lower airway issues. Plan to treat as above. Restart azelastine as above. Consider trial of SUBHASH if issues persisit 07/28/2023 Chronic cough (ICD-10 - R05.3) Cough only in the setting of PND without other history concerning for lower airway issues. Plan to treat as above. Consider trial of SUBHASH if issues persisit 06/24/2023 Chronic cough (ICD-10 - R05.3) Cough only in the setting of PND without other history concerning for lower airway issues. Plan to treat as above. Consider trial of SUBHASH if issues persisit Plan Of Treatment Next Appt Details Provider Name:Delmi aguirre, 11/22/2024 10:30:00 AM, [address] [facility], [address], [address], Insurance Providers Payer Name Payer Address Payer Phone Subscriber Number Group Number Insured Name Patient Relationship to Insured Coverage Start Date Coverage End Date [employer] [address] [address] [place] [address] [id number] Anselmo Arellano Self - patient is the insured 2 Medical (General) History Medical History History ICD Code Anxiety disorder, unspecified F41.9 Insomnia, unspecified G47.00 Gastro-esophageal reflux disease without esophagitis K21.9 Chronic cough R05.3 Allergic rhinitis due to animal (cat) (d og) hair and dander J30.81 Other allergic rhinitis J30.89 Allergic rhinitis due to pollen J30.1 Other chronic allergic conjunctivitis H1 0.45
--- OUTSIDE RECORDS SUMMARY | 2024-06-08 19:27 | XMS_ITS | Encounter Summary ---
[facility] Organization [facility] Address [address] [place] [address] Care Team Providers Care Ice Cream Scooper Name Role Phone Gina Alvarenga DO Primary Care Provider [phone] Encounter Details Date Type Department Care Team (Late st Contact Info) Description 10/30/2004 Outpatient Historical [address] 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 Gender Identity Not on file Sexual Orientation Not on file documented as of this encounter Last Filed Vital Signs Vital Sign Reading Time Taken Comments Blood Pressure 122/84 10/30/2004 3:30 PM CDT Pulse 80 10/30/2004 3:30 PM CDT Temperature 36.5 C (97.7 F) 10/30/2004 3:30 PM CDT Respiratory Rate - - Oxygen Saturation - - Inhaled Oxygen Concentration - - Weight 86.2 kg (190 lb) 10/30/2004 3:30 PM CDT Height - - Body Mass Index - - documented in this encounter Plan of Treatment Not on file documented as of this encounter Visit Diagnoses Not on filedocumented in this encounter Care Teams Ice Cream Scooper Relationship Specialty Start Date End Date Gina Alvarenga DO PCP - General Internal Medicine 10/06/09 documented as of this encounter
--- OUTSIDE RECORDS SUMMARY | 2024-06-08 19:27 | XMS_ITS | Encounter Summary ---
Author Organization [facility] Address [address] [place] [address] Care Team Providers Care Stock Control Supervisor Name Role Phone Gina Alvarenga DO Primary Care Provider [phone] Encounter Details Date Type Department Care Team (Late st Contact Info) Description 05/23/2004 Outpatient Historical [address] 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 Gender Identity Not on file Sexual Orientation Not on file documented as of this encounter Last Filed Vital Signs Vital Sign Reading Time Taken Comments Blood Pressure 110/76 05/23/2004 9:26 PM BEHAVIORAL SERVICES TECH Pulse 60 05/23/2004 9:26 PM BEHAVIORAL SERVICES TECH Temperature - - Respiratory Rate - - Oxygen Saturation - - Inhaled Oxygen Concentration - - Weight 85.3 kg (188 lb) 05/23/2004 9:26 PM BEHAVIORAL SERVICES TECH Height - - Body Mass Index - - documented in this encounter Plan of Treatment Not on file documented as of this encounter Visit Diagnoses Not on filedocumented in this encounter Care Teams Stock Control Supervisor Relationship Specialty Start Date End Date Gina Alvarenga DO PCP - General Internal Medicine 10/06/09 documented as of this encounter
--- OUTSIDE RECORDS SUMMARY | 2024-06-08 19:28 | XMS_ITS ---
Author Organization [facility] Address [address] [facility] [address] [place] [address] Care Team Providers Care Phy Therapist Name Role Phone JOAN SANDY MD Primary Care Provider Unavail able Poli Foster Unavailable [phone] Results Component Value Reference Range Notes UDT Reviewed date:12/25/2023 02:36:59 PM Interpretation: Performing Lab: Notes/Report: THC N 0 - 50 ng/ml Cocaine N 0 - 300 ng/ml Amphetamine N 0 - 1000 ng/ml Buprenorphine (BUP) N 0 - 10 ng/ml Secobarbital (Bar) N 0 - 300 ng/ml Oxazepam (BZO) P 0 - 300 ng/ml 0-datxlanxzp-6,0-uhnnyqgd-8,3-diphenylpyrrolidine (ELLIS P) N 0 - 300 ng/ml Methamphetamine (MET) N 0 - 1000 ng/ml Methylenedioxymethamphetamine (MDMA) N 0 - 500 ng/ml Morphine (MOP 300/[id number]) N 0 - 300 ng/ml Methadone (MTD) N 0 - 300 ng/ml Phencyclidine (PCP) N 0 - 25 ng/ml Nortriptyline (TCA) N 0 - 1000 ng/ml Oxycodone N 0 - 300 ng/ml x N 0 - 300 ng/ml REASON FOR VISIT follow up depression, anxiety Medications Medication SIG (Take, Route, Frequency, Duration) Notes Start Date End Date Status Sertraline HCl 100 MG 1 tablet Oral Once a day for 90 days Active Zolpidem Tartrate 10 MG 1 tablet at bedt riri Oral once a day for 90 days 12/25/2023 Active Zolpidem Tartrate 10 MG Oral for 90 Days Active ALPRAZolam 0.5 MG 1 tablet Oral once a day for 30 days 12/25/2023 Active Sertraline HCl 100 MG Oral for 90 Days Active Rosuvastatin Calcium 40 MG TAKE 1 TABLET BY MOUTH DAILY Oral for 90 Days Active ALPRAZolam 0.5 MG Oral for 30 Days Active Azelastine HCl 0.1 % USE 2 SPRAYS IN EAC H NOSTRIL TWICE DAILY Nasal for 25 Days Active Lansoprazole 30 MG Oral for 90 Days Active Pregabalin 200 MG Oral for 90 Days Active Social History [...] ast year? No Points 0 Interpretation Negative Vital Signs Blood pressure systolic 126 mm Hg 12/25/19 24 Blood pressure diastolic 80 mm Hg 024 Heart Rate 80 /min 12/25/2023 Height 70 in 12/25/2023 Weight 189 lbs 12/25/2023 BMI 27.12 kg/m2 12/25/2023 Height-cm 177.8 cm 12/25/2023 Weight-kg 85.73 kg 12/25/2023 Encounters Encounter Location Date Provider Diagnosis [facility] [address] [facility] [address] [place] [address] 12/25/2023 Poli Cookam MDD (recurrent major depressive disorder) in remission F33.40 ; VLADISLAV (generalized anxiety disorder) F41.1 ; Primary insomnia F51.01 and Irritable bowel syndrome K58.9 Assessments Encounter Date Diagnosis (ICD Code) Assessment Notes Treatment Notes Treatment Clinical Notes Section Notes 12/25/2023 MDD (recurrent major depressive disorder) in [...] or specialist. - Consider referral to a finish painter if the patient's pain does not improve [...] symptoms arise before the next scheduled appointment. 12/25/2023 VLADISLAV (generalized anxiety disorder) (ICD-10 - [...] or specialist. - Consider referral to a finish painter if the patient's pain does not improve [...] symptoms arise before the next scheduled appointment. 12/25/2023 Primary insomnia (ICD-10 - F51.01) Anxiety [...] or specialist. - Consider referral to a finish painter if the patient's pain does not improve [...] symptoms arise before the next scheduled appointment. 12/25/2023 Irritable bowel syndrome (ICD-10 - K58.9) [...] or specialist. - Consider referral to a finish painter if the patient's pain does not improve [...] symptoms arise before the next scheduled appointment. Plan Of Treatment Medication Medication Name Sig Start Date Stop Date Notes Sertraline HCl 100 MG 1 tablet Oral Once a day for 90 days Zolpidem Tartrate 10 MG 1 tablet at bedt riri Oral once a day for 90 days 12/25/2023 ALPRAZolam 0.5 MG 1 tablet Oral once a day for 30 days 12/25/2023 Next Appt Details Follow Up: 3 Months, Reason: follow up depression, anxiety Provider Name:Poli Foster , 06/21/2024 01:00:00 PM, [address], [facility] [address], [place], [address], Progress Notes * SAMUELAnselmoDOB:1960 (63 yo M)Acc No.[id number]:12/25/2023 Patient: Anselmo PAREDES Provider: Mauricio FOSTER MD :1960 A ge:63 Y S ex:Male Date:12/25/2023 Phone: Address:[address] [place] [address], [facility] Pcp:JOAN SANDY MD Subjective: * Chief Complaints: * F ollow up depression, anxiety * HPI: D epression Screening: Chief Complaint: Increased anxiety The note is transcribed using speech recognition software. It is a reflection of a visit with the patient. It might have some inaccuracy, including medication names and transcribing errors, though efforts have been made to correct them. The patient reports increased anxiety due to his 's work-related stress. 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 The patient listens to his 's concerns and feels the stress falls into his lap as well. His works for the [employer] and often brings work-related problems home. Mental Health: The patient's depression appears to be in remission, but he experiences heightened anxiety. He and his have not had much time for leisure activities or vacations, and their best moments together are when they spend time with their grandchildren. Social Life: The patient reports that his rarely goes out, except for occasional lunches with her daughter or sister. Medications: The patient has a history of sleep apnea and is currently taking zolpidem 10 mg for insomnia. He is also on sertraline 100 mg daily for depression and alprazolam for anxiety. His takes a higher dose of alprazolam due to her work-related stress. The patient mentions that the amount his takes would knock him out. Medical History: The patient reports stable cholesterol levels and no new medical problems. He has been receiving injections in his knees and attending physical therapy for knee pain. He also sees a chiropractor for back pain. The patient mentions that his job involved working with his hands, back, and legs, which may have contributed to his current pain issues. Family Health: The patient notes that his has been sick recently, including having COVID, which required them to stay in separate areas of the house. He also mentions that his sees both a psychiatrist and a counselor for her own mental health concerns. VLADISLAV-7 (2018 Edition) F eeling nervous, anxious, or on edge?Several days, N ot being able to stop or control worrying N ot at all, W orrying too much about different things N ot at all, T rouble relaxing S everal days, B eing so restless that it is hard to sit still S everal days, B ecoming easily annoyed or irritable?Several days, F eeling afraid as if something awful might happen N ot at all, I f you checked any problems, how difficult have they made it for you to do your work, take care of things at home, or get along with other people? N ot difficult at all. C [place]-Suicide Severity Rating Scale: Suicide Risk (CSRS-screener) i n the past one month Have you wished you were or wished you could go to sleep and not wake up? N o, i n the past one month Have you actually had any thoughts of killing yourself? N o, H ave you ever done anything, started to do anything, or prepared to do anything to end your life? N o. D epression screening: PHQ-9 L ittle interest or pleasure in doing things S everal days, F eeling down, depressed, or hopeless N ot at all, T rouble falling or staying asleep, or sleeping too much M ore than half the days, F eeling tired or having little energy S everal days, P oor appetite or overeating N ot at all, F eeling bad about yourself or that you are a failure, or have let yourself or your family down N ot at all, T rouble concentrating on things, such as reading the newspaper or watching television N ot at all,?Moving or speaking so slowly that other people could have noticed; or the opposite, being so fidgety or restless that you have been moving around a lot more than usual N ot at all, T houghts that you would be better off or of hurting yourself in some way N ot at all, T otal Score 4 , I nterpretation M inimal Depression. I ntervention D epression Screening Findings N egative, F ollow-Up for Depression M ental health care management, S uicide Risk Assessment Performed 1 , A dditional Evaluation for Depression Psychiatric interview and evaluation, N allyson of the standardized tool used for adult depression screening: P atient Health Questionnaire (PHQ-9). P ast Psychiatric Hospitalizations: Previous psychiatric hospitalizations P revious Psychiatric Hospitalization N o. P ast History of Suicidal attempt H ave you ever attempted suicide in the past N o. H istory of Presenting Problem: Pt was seen today and Urine drug screen was done. * Medical History: * Surgical History: * Hospitalization/Major Diagno stic Procedure: * Family History: F ather: None. M aternal Aunt: None. M aternal Uncle: None. P aternal Aunt: None.?Paternal Uncle: None. M other: None. P aternal Grandfather: None. P aternal Grandmother: None. M aternal Grandfather: None. M aternal Grandmother: None. B rother: None.?Sister: None. S on: ADHD. D aughter: None. 2 brother(s) , 4 sister(s) . 1 son(s) . .? * Social History: T obacco Use: T obacco Control (Standard) T obacco use: N onsmoker. D rug/Alcohol: D rugs H ave you used drugs other than those for medical reasons in the past 12 months??No. D o you smoke marijuana?: Denies. Do you drink alcohol?: No. AUDIT-C (Standard) D id you have a drink containing alcohol in the past year? N o, P oints 0 , I nterpretation N egative. M iscellaneous: O ccupation: Retired. Safety issues A re there any firearms in the house? Y es. A dvance Care Planning A re you your own decision-maker Y es, D o you have Power of Stockbroking Dealer for Health or Medical? N o. 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 * Medications: T akingLansoprazole 30 MG Capsule Delayed Release Oral Pregabalin 200 MG Capsule Oral ALPRAZolam 0.5 MG Tablet Oral Azelastine HCl 0.1 % Solution USE 2 SPRAYS IN EACH NOSTRIL TWICE DAILY Nasal Sertraline HCl 100 MG Tablet Oral Rosuvastatin Calcium 40 MG Tablet TAKE 1 TABLET BY MOUTH DAILY Oral Zolpidem Tartrate 10 MG Tablet Oral Taking Lansoprazole 30 MG Capsule Delayed Release Oral Taking Pregabalin 200 MG Capsule Oral Taking ALPRAZolam 0.5 MG Tablet Oral Taking Azelastine HCl 0.1 % Solution USE 2 SPRAYS IN EACH NOSTRIL TWICE DAILY Nasal Taking Sertraline HCl 100 MG Tablet Oral Taking Rosuvastatin Calcium 40 MG Tablet TAKE 1 TABLET BY MOUTH DAILY Oral Taking Zolpidem Tartrate 10 MG Tablet Oral DiscontinuedRosuvastatin Calcium 40 MG Tablet Oral Rosuvastatin Calcium 40 MG Tablet Oral Pravastatin Sodium 40 MG Tablet Oral Rosuvastatin Calcium 40 MG Tablet Oral Rosuvastatin Calcium 40 MG Tablet Oral Rosuvastatin Calcium 40 MG Tablet Oral Rosuvastatin Calcium 40 MG Tablet Oral Medication List reviewed and reconciled with the patientDiscontinued Rosuvastatin Calcium 40 MG Tablet Oral Discontinued Rosuvastatin Calcium 40 MG Tablet Oral Discontinued Pravastatin Sodium 40 MG Tablet Oral Discontinued Rosuvastatin Calcium 40 MG Tablet Oral Discontinued Rosuvastatin Calcium 40 MG Tablet Oral Discontinued Rosuvastatin Calcium 40 MG Tablet Oral Discontinued Rosuvastatin Calcium 40 MG Tablet Oral Medication List reviewed and reconciled with the patient Objective: * Vitals: B P:126/80mm Hg, HR:80/min, Wt:189lbs, Wt-k.73 kg, Ht: 70 in, Ht-cm: 177.8 cm, BMI:27.12Index, Body Surface Area: 2.06. * Examination: G eneral Examination: M ental Status Examination: Patient exhibits increased anxiety but no signs of depression, which appears to be in remission. He is able to communicate effectively and maintain a coherent conversation. He expresses concerns about his 's stress and its impact on him. Vital Signs: in the chart Physical Examination: Musculoskeletal: Patient reports chronic back pain and has been receiving injections in his knees due to pain. He is also undergoing physical therapy. Neurological: No signs of acute distress observed during the conversation. Diagnostic Test Results and Labs: N/A Additional Observations: - Patient reports having sleep apnea. - Patient mentions stable cholesterol levels. - Patient is currently taking sertraline 100mg daily for depression, alprazolam for anxiety, and zolpidem 10mg for insomnia. - Patient reports his is experiencing significant work-related stress, which is affecting him as well. Assessment: * Assessment: 1. M DD (recurrent major depressive disorder) in remission - F33.40 (Primary) 2 . G AD (generalized anxiety disorder) - F41.1 3 . P rimary insomnia - F51.01 4 . I rritable bowel syndrome - K58.9 Anxiety - Assessment: The patient reports increased anxiety due to his 's work- related stress and their inability to spend quality [...] or specialist. - Consider referral to a finish painter if the patient's pain does not improve [...] symptoms arise before the next scheduled appointment. Plan: * Treatment: 2. G AD (generalized anxiety disorder) Refill ALPRAZolam Tablet, 0.5 MG, 1 tablet, Oral, once a day, 30 days, 30 Tablet, Refills 2. ? 3. P rimary insomnia Refill Zolpidem Tartrate Tablet, 10 MG, 1 tablet at bedtime, Oral, once a day, 90 days, 90 Tablet, Refills 0. * Labs: * L ab: UDT (Collection Date & Time - 12/25/2023) Value Reference Range T HC N 0 - 50 ng/ml * C ocaine N 0 - 300 ng/ml * A mphetamine N 0 - 1000 ng/ml * B uprenorphine (BUP) N 0 - 10 ng/ml * S ecobarbital (Bar) N 0 - 300 ng/ml * O xazepam (BZO) P 0 - 300 ng/ml * 2 -ethylidene-1,4-kjiqfvag-0,3-diphenylpyrrolidine (EDDP) N 0 - 300 ng/ml * M ethamphetamine (MET) N 0 - 1000 ng/ml * M ethylenedioxymethamphetamine (MDMA) N 0 - 500 ng/ml * M orphine (MOP 300/[id number]) N 0 - 300 ng/ml * M ethadone (MTD) N 0 - 300 ng/ml * P hencyclidine (PCP) N 0 - 25 ng/ml * P ropoxyphene (PPX) N 0 - 300 ng/ml * N ortriptyline (TCA) N 0 - 1000 ng/ml * O xycodone N 0 - 300 ng/ml * Procedure Codes: 9 6127 BEHAV ASSMT W/SCORE & DOCD/STAND [id number] DRUG TST PRSMV READ INSTRMNT ASSTD DIR OPT [id number] VISIT COMPLEXITY INHERENT TO ONGOING CARE RELATED TO A PATIENT'S SINGLE, SERIOUS CONDITION OR A COMPLEX CONDITION * Follow Up: 3 Months (Reason: follow up depression, anxiety) * Billing Information: * Visit Code: 29853 OFFICE OUTPATIENT VISIT 25 MINUTES DETAILED HISTORY AND EXAM/MODERATE MEDICAL DECISION MAKING. * Procedure Codes: 08207 BEHAV ASSMT W/SCORE & DOCD/STAND INSTRUMENT. 89838 DRUG TST PRSMV READ INSTRMNT ASSTD DIR OPT OBS. G2211 VISIT COMPLEXITY INHERENT TO ONGOING CARE RELATED TO A PATIENT'S SINGLE, SERIOUS CONDITION OR A COMPLEX CONDITION. * Sign off status: Completed true * Provider: Mauricio FOSTER MD Date: 1 Generated for Normai ng/Fasebasg/eTransmitting on: 0 06/08/2024 07:27 PM CDT History and Physical Notes * HPI (History of Present Illness) Category Sub-Category Detail Notes Category Notes History of Presenting Problem Pt was seen today and Urine drug screen was done Past Psychiatric Hospitalizations Previous psychiatric hospitalizations Previous Psychiatric Hospitalization: No Past History of Suicidal attempt Have yo u ever attempted suicide in the past: No Depression screening PHQ-9 Little inte rest or pleasure in doing things: Several days Feeling down, depressed, or hopeless: No t at all Trouble falling or staying a sleep, or sleeping too much: More than half the days Feeling tired or having little energy: S everal days Poor appetite or overeating: Not at all Feeling bad about yourself o r that you are a failure, or have let yourself or your family down: Not at all Trouble concentrating on thi ngs, such as reading the newspaper or watching television: Not at all Moving or speaking so slowly that other people could have noticed; or the opposite, being so fidgety or restless that you have been moving around a lot more than usual: Not at all Thoughts that you would be b anurag off or of hurting yourself in some way: Not at all Total Score: 4 Interpretation: Minimal Depression Intervention Depression Screening Findings: N egative Follow-Up for Depression: Mental health care management Suicide Risk Assessment Performed: 12/24 Additional Evaluation for Depression: Ps ychiatric interview and evaluation Name of the standardized too l used for adult depression screening:: Patient Health Questionnaire (PHQ-9) Depression Screening VLADISLAV-7 (2018 Edition) Feelin g nervous, anxious, or on edge: Several days Not being able to stop or control worryi ng: Not at all Worrying too much about different things : Not at all Trouble relaxing: Several days Being so restless that it is hard to sit still: Several days Becoming easily annoyed or irritable: Se veral days Feeling afraid as if something awful jihan ht happen: Not at all If you checked any problems, how difficult have they made it for you to do your work, take care of things at home, or get along with other people?: Not difficult at all [place]-Suicide Severity Rating Scale Suicide Risk (CSRS-screener) in the past one month Have you wished you were or wished you could go to sleep and not wake up?: No in the past one month Have y ou actually had any thoughts of killing yourself?: No Have you ever done anything, started to do anything, or prepared to do anything to end your life?: No Examination Category Sub-Category Detail Notes Category Not es General Examination Mental Status Examination: Patient exhibits increased anxiety but no signs of depression, which appears to be in remission. He is able to communicate effectively and maintain a coherent conversation. He expresses concerns about his 's stress and its impact on him. Vital Signs: in the chart Physical Examination: Musculoskeletal: Patient reports chronic back pain and has been receiving injections in his knees due to pain. He is also undergoing physical therapy. Neurological: No signs of acute distress observed during the conversation. Diagnostic Test Results and Labs: N/A Additional Observations: - Patient reports having sleep apnea. - Patient mentions stable cholesterol levels. - Patient is currently taking sertraline 100mg daily for depression, alprazolam for anxiety, and zolpidem 10mg for insomnia. - Patient reports his is experiencing significant work-related stress, which is affecting him as well.
--- OUTSIDE RECORDS SUMMARY | 2024-06-08 19:28 | XMS_ITS | Clinical Summary ---
Author Organization [facility] Address [address] [place] [address] Care Team Providers Care Bindery Leadperson Name Role Phone Guillermo Florentino MD Primary Care Provider Source Comments [facility],non-owned Affiliates and Associated Physician Practices is amultiple site organization consisting of ambulatory clinics and hospital sitesin [place], [place] and [place]. This disclosure is being madepursuant to the Care Everywhere program and may not contain all information available regarding this patient. Last updated 17.[facility] Allergies No known active allergies Medications * Be aware that medications may not be up to date on this document. Alwaysverify current medications with the patient. Medication Sig Dispensed Refills Start Date End Date Status LANSOPRAZOLE PO Active Pregabalin (LYRICA PO) Ac tive ALPRAZolam (XANAX) 0.5 MG tablet Take 0.5 mg by mouth 3 times daily as needed for Anxiety Active Zolpidem Tartrate (ZOLPIDEM PO) Active Immunizations Name Administration Dates Next Due INFLUENZA VACCINE, QUADR. (F LUZONE; FLULAVAL; FLUARIX; AFLURIA QUADRIVALENT; 6MO+), 0.5 ML (IIV4) 11/17/2019,12/19/2016 iNFLUENZA VACCINE, RECOM-GU, QUADR. (FLUBLOCK QUADRIVALENT; 18Y+) (RIV4) 12/19/2017 Social History Tobacco Use Types Packs/Day Years Used Date Smoking Tobacco: Never Smokeless Tobacco: Never Sex and Gender Information Value Date Recorded Sex Assigned at Not on file Gender Identity Not on file Sexual Orientation Not on file Last Filed Vital Signs Vital Sign Reading Time Taken Comments Blood Pressure 110/70 05/08/2019 2:25 PM [employer] Pulse 80 05/08/2019 2:25 PM [employer] Temperature 36.9 C (98.5 F) 05/08/2019 2:25 PM [employer] Respiratory Rate 16 05/08/2019 2:25 PM [employer] Oxygen Saturation 98% 05/08/2019 2:25 PM [employer] Inhaled Oxygen Concentration - - Weight 79.4 kg (175 lb) 05/08/2019 2:25 PM [employer] Height 177.8 cm (5' 10 ) 05/08/2019 2:25 PM [employer] Body Mass Index 25.11 05/08/2019 2:25 PM [employer] Plan of Treatment Health Maintenance Due Date Last Done Comments COLOGUARD (AGES 45-75) - COLON CA SCREENING 1960 COLON MONITORING 1960 COLONOSCOPY - COLON CA SCREENING 1960 CT COLONOGRAPHY - COLON CA SCREENING 1960 Colorectal Cancer Screening 1960 FIT - COLON CA SCREENING 1960 FLEX SIG - COLON CA SCREENING 1960 LIPID TESTING 1960 HIV SCREENING 1973 HEPATITIS C SCREENING 07/06/1976 DTAP/TDAP/TD VACCINES (1 - Tdap) 1977 PNEUMOCOCCAL VACCINE 50+ (1 of 1 - PCV) 2008 ZOSTER VACCINE (1 of 2) 2008 SCREENING FOR DIABETES 05/08/2019 COVID-19 VACCINE (1 - 2023- season) 2023 INFLUENZA VACCINE (#1) 2023 0, 12/25/2017, 12/19/2017, Additional history exists DEPRESSION SCREENING 03/17/2024 Respiratory Syncytial Virus (RSV) Vaccine Pt: or over 60 yrs (1 - 1-dose 75+ series) 2033 HEPATITIS B VACCINE Aged Out No longe r eligible based on patient's age to complete this topic HIB VACCINE Aged Out No longer eligi ble based on patient's age to complete this topic HPV VACCINE Aged Out No longer eligi ble based on patient's age to complete this topic MENINGOCOCCAL (Group B) VACCINE SHARED DECISION-MAKING Aged Out No longer eligible based on patient's age to complete this topic MENINGOCOCCAL GROUPS A/C/Y/W VACCINE Aged Out No longer eligible based on patient's age to complete this topic Care Teams Bindery Leadperson Relationship Specialty Start Date End Date Guillermo Florentino MD [address] [address] PCP - General Internal Medicine 12/19/17
--- OUTSIDE RECORDS SUMMARY | 2024-06-08 19:28 | XMS_ITS ---
Author Organization [facility] [employer] Address [address] [facility] [address] [place] [address] Care Team Providers Care Director Of Education And Training Name Role Phone JOAN SANDY MD Primary Care Provider Unavail able Poli Foster Unavailable [phone] Allergies No Known Allergies Results Component Value Reference Range Notes UDT Reviewed date:03/24/2024 03:32:05 PM Interpretation: Performing Lab: Notes/Report: THC N 0 - 50 ng/ml Cocaine N 0 - 300 ng/ml Amphetamine N 0 - 1000 ng/ml Buprenorphine (BUP) N 0 - 10 ng/ml Secobarbital (Bar) N 0 - 300 ng/ml Oxazepam (BZO) P 0 - 300 ng/ml 2-itpbzkxfub-9,5-dgdbjpjo-1,3-diphenylpyrrolidine (ELLIS P) N 0 - 300 ng/ml Methamphetamine (MET) N 0 - 1000 ng/ml Methylenedioxymethamphetamine (MDMA) N 0 - 500 ng/ml Morphine (MOP 300/[id number]) N 0 - 300 ng/ml Methadone (MTD) N 0 - 300 ng/ml Phencyclidine (PCP) N 0 - 25 ng/ml Nortriptyline (TCA) N 0 - 1000 ng/ml Oxycodone N 0 - 300 ng/ml x N 0 - 300 ng/ml REASON FOR VISIT follow up depression, anxiety, Depression screening positive, Follow up- medication eval, UDT Visit,UDT done Medications Medication SIG (Take, Route, Frequency, Duration) Notes Start Date End Date Status Azelastine HCl 0.1 % USE 2 SPRAYS IN EAC H NOSTRIL TWICE DAILY Nasal for 25 Days Active Rosuvastatin Calcium 40 MG TAKE 1 TABLET BY MOUTH DAILY Oral for 90 Days Active Lansoprazole 30 MG Oral for 90 Days Active Pregabalin 200 MG Oral for 90 Days Active ALPRAZolam 0.5 MG 1 tablet Oral once a day for 30 days 03/24/2024 Active Sertraline HCl 100 MG 1 tablet Oral Once a day for 90 days Active Zolpidem Tartrate 10 MG 1 tablet at bedt riri Oral once a day for 90 days 03/24/2024 Active Social History Tobacco Use: Social History [...] Interpretation Negative Vital Signs Blood pressure systolic 129 mm Hg 03/24/19 25 Blood pressure diastolic 86 mm Hg 025 Heart Rate 78 /min 03/24/2024 Height 70 in 03/24/2024 Weight 202.0 lbs 03/24/2024 BMI 28.98 kg/m2 03/24/2024 Height-cm 177.8 cm 03/24/2024 Weight-kg 91.63 kg 03/24/2024 Encounters Encounter Location Date Provider Diagnosis [facility] Molecular Detection [facility] [address] [facility] [address] [place] [address] 03/24/2024 Poli Foster MDD (recurrent major depressive disorder) in remission F33.40 ; VLADISLAV (generalized anxiety disorder) F41.1 ; Primary insomnia F51.01 and Irritable bowel syndrome K58.9 Assessments Encounter Date Diagnosis (ICD Code) Assessment Notes Treatment Notes Treatment Clinical Notes Section Notes 03/24/2024 MDD (recurrent major depressive disorder) in [...] Provide 90-day prescriptions for most medications. 03/24/2024 VLADISLAV (generalized anxiety disorder) (ICD-10 - [...] Provide 90-day prescriptions for most medications. 03/24/2024 Primary insomnia (ICD-10 - F51.01) Insomnia [...] - Provide 90-day prescriptions for most medications. Plan Of Treatment Medication Medication Name Sig Start Date Stop Date Notes ALPRAZolam 0.5 MG 1 tablet Oral once a day for 30 days 03/24/2024 Sertraline HCl 100 MG 1 tablet Oral Once a day for 90 days Zolpidem Tartrate 10 MG 1 tablet at bedt riri Oral once a day for 90 days 03/24/2024 Next Appt Details Follow Up: 3 Months, Reason: Provider Name:Poli Cookam , 06/21/2024 01:00:00 PM, [address], [facility] [address], [place], [address], Progress Notes * Anselmo BAKERDOB:1960 (63 yo M)Acc No.[id number]:03/24/2024 Patient: Anselmo PAREDES Provider: Mauricio FOSTER MD :1960 A ge:63 Y S ex:Male Date:03/24/2024 Phone: Address:[address] [place] [address], [facility] Pcp:JOAN SANDY MD Subjective: * Chief Complaints: * F ollow up depression, anxietyDepression screening positiveFollow up-medication evalUDT VisitUDT done * HPI: D epression Screening: The note is transcribed using speech recognition software. It is a reflection of a visit with the patient. It might have some inaccuracy, including medication names and transcribing errors, though efforts have been made to correct them. Chief Complaint: No significant changes in mental health status The patient reports no significant changes in his mental health status since the last visit. He denies experiencing any major depression or anxiety. The patient notes that his current medication regimen has been beneficial, stating, I'm able to handle the things that come up. I don't panic. He indicates that his depression score remains stable. Stressors: The patient mentions some recent life stressors, including a malfunctioning furnace and issues with his vehicle. He is currently using electric heaters as a temporary solution while awaiting furnace repair. The patient demonstrates problem-solving skills, noting that he had figured out the issue himself and could have potentially fixed it faster, but is proceeding with the warranty plan for cost reasons. Mental Health: Despite these challenges, the patient appears to be coping adequately with his current medication regimen. The patient expresses that It could be a tad better but we're getting along, suggesting overall stability despite some difficulties. Medication Management: Current and Past Medications and Supplements - Zolpidem 10mg - Sertraline 100mg daily - Rosuvastatin (nasal inhaler) - Pregabalin (for neuropathic pain) - Lansoprazole - Xanax (mentioned, but dosage not specified) Social History: - Living situation: Using electric heaters due to furnace being out - Stress levels and coping mechanisms: Patient reports handling things that come up without panicking, suggesting improved stress management - Transportation: Mentions issues with his vehicle that need addressing. VLADISLAV-7 (2018 Edition) F eeling nervous, anxious, or on edge?Several days, N ot being able to stop or control worrying N ot at all, W orrying too much about different things S everal days, T rouble relaxing S everal days, B eing so restless that it is hard to sit still S everal days, B ecoming easily annoyed or irritable S everal days, F eeling afraid as if something awful might happen N ot at all, T otal VLADISLAV-7 Score 5 , I f you checked any problems, how difficult have they made it for you to do your work, take care of things at home, or get along with other people? S omewhat difficult, I nterpretation of Total ( 5 to 9) Mild. [place]-Suicide Severity Rating Scale: Suicide Risk (CSRS-screener) i n the past one month Have you wished you were or wished you could go to sleep and not wake up? N o, i n the past one month Have you actually had any thoughts of killing yourself? N o. D epression screening: PHQ-9 L ittle interest or pleasure in doing things N ot at all, F eeling down, depressed, or hopeless N ot at all, T rouble falling or staying asleep, or sleeping too much N ot at all, F eeling tired or having little energy N ot at all, P oor appetite or overeating N ot at all, F eeling bad about yourself or that you are a failure, or have let yourself or your family down N ot at all, T rouble concentrating on things, such as reading the newspaper or watching television N ot at all, M oving or speaking so slowly that other people could have noticed; or the opposite, being so fidgety or restless that you have been moving around a lot more than usual N ot at all, T houghts that you would be better off or of hurting yourself in some way N ot at all, T otal Score 0 . I ntervention D epression Screening Findings P ositLars leal ollow-Up for Depression M ental health treatment assessment, Patient follow-up to return when and if necessary, S uicide Risk Assessment Performed 0 03/24/2024 , A dditional Evaluation for Depression Psychiatric interview and evaluation, N allyson of the standardized tool used for adult depression screening: P atient Health Questionnaire (PHQ-9). H istory of Presenting Problem: Pt was seen today and Urine drug screen was done. * Medical History: * Surgical History: * Hospitalization/Major Diagno stic Procedure: * Social History: T obacco Use: T [...] es, D o you have Power of Paint And Table Edger for Health or Medical? N o. 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 * Medications: T akingALPRAZolam 0.5 MG Tablet 1 tablet Oral once a day Sertraline HCl 100 MG Tablet 1 tablet Oral Once a day Zolpidem Tartrate 10 MG Tablet 1 tablet at bedtime Oral once a day Lansoprazole 30 MG Capsule Delayed Release Oral Pregabalin 200 MG Capsule Oral Azelastine HCl 0.1 % Solution USE 2 SPRAYS IN EACH NOSTRIL TWICE DAILY Nasal Rosuvastatin Calcium 40 MG Tablet TAKE 1 TABLET BY MOUTH DAILY Oral Taking ALPRAZolam 0.5 MG Tablet 1 tablet Oral once a day Taking Sertraline HCl 100 MG Tablet 1 tablet Oral Once a day Taking Zolpidem Tartrate 10 MG Tablet 1 tablet at bedtime Oral once a day Taking Lansoprazole 30 MG Capsule Delayed Release Oral Taking Pregabalin 200 MG Capsule Oral Taking Azelastine HCl 0.1 % Solution USE 2 SPRAYS IN EACH NOSTRIL TWICE DAILY Nasal Taking Rosuvastatin Calcium 40 MG Tablet TAKE 1 TABLET BY MOUTH DAILY Oral DiscontinuedALPRAZolam 0.5 MG Tablet Oral Sertraline HCl 100 MG Tablet Oral Zolpidem Tartrate 10 MG Tablet Oral Medication List reviewed and reconciled with the patientDiscontinued ALPRAZolam 0.5 MG Tablet Oral Discontinued Sertraline HCl 100 MG Tablet Oral Discontinued Zolpidem Tartrate 10 MG Tablet Oral Medication List reviewed and reconciled with the patient * Allergies: N .K.D.A.no[Allergies Verified] Objective: * Vitals: B P:129/86mm Hg, HR:78/min, Wt:202.0lbs, Wt-k.63 kg, Ht: 70 in, Ht-cm: 177.8 cm, BMI:28.98Index, Body Surface Area: 2.13. * Examination: G eneral Examination: M ental Status Examination: Patient's mood appears stable with no reported major depression or anxiety. Depression score noted as flat, indicating no significant depressive symptoms. Patient reports being able to handle things that come up without panicking. Vital Signs: review the notes for vitals Medication trials and adjustments: - Zolpidem 10mg for insomnia - Sertraline 100mg daily - Rosuvastatin for lipids - Pregabalin for neuropathic pain - Lansoprazole for GI issues - Nasal inhaler (unspecified) - Xanax (mentioned, dosage not specified) No recent lab tests or other diagnostic results provided. Assessment: * Assessment: 1. M DD (recurrent major depressive disorder) in remission - F33.40 (Primary) 2 . G AD (generalized anxiety disorder) - F41.1 3 . P rimary insomnia - F51.01 4 . I rritable bowel syndrome - K58.9 Insomnia - Plan: - Continue zolpidem 10 [...] - Provide 90-day prescriptions for most medications. Plan: * Treatment: 2. G AD (generalized anxiety disorder) Refill ALPRAZolam Tablet, 0.5 MG, 1 tablet, Oral, once a day, 30 days, 30 Tablet, Refills 2. ? 3. P rimary insomnia Refill Zolpidem Tartrate Tablet, 10 MG, 1 tablet at bedtime, Oral, once a day, 90 days, 90 Tablet, Refills 0. * Labs: * L ab: UDT (Collection Date & Time - 03/24/2024) Value Reference Range T HC N 0 - 50 ng/ml * C ocaine N 0 - 300 ng/ml * A mphetamine N 0 - 1000 ng/ml * B uprenorphine (BUP) N 0 - 10 ng/ml * S ecobarbital (Bar) N 0 - 300 ng/ml * O xazepam (BZO) P 0 - 300 ng/ml * 2 -ethylidene-1,7-mzsirfpo-1,3-diphenylpyrrolidine (EDDP) N 0 - 300 ng/ml * M ethamphetamine (MET) N 0 - 1000 ng/ml * M ethylenedioxymethamphetamine (MDMA) N 0 - 500 ng/ml * M orphine (MOP 300/[id number]) N 0 - 300 ng/ml * M ethadone (MTD) N 0 - 300 ng/ml * P hencyclidine (PCP) N 0 - 25 ng/ml * P ropoxyphene (PPX) N 0 - 300 ng/ml * N ortriptyline (TCA) N 0 - 1000 ng/ml * O xycodone N 0 - 300 ng/ml * Procedure Codes: 8 0306 DRUG TST PRSMV READ INSTRMNT ASSTD DIR OPT [id number] BEHAV ASSMT W/SCORE & DOCD/STAND INSTRUMENT * Follow Up: 3 Months * Billing Information: * Visit Code: 14475 OFFICE OUTPATIENT VISIT 25 MINUTES DETAILED HISTORY AND EXAM/MODERATE MEDICAL DECISION MAKING. * Procedure Codes: 58607 DRUG TST PRSMV READ INSTRMNT ASSTD DIR OPT OBS. 21607 BEHAV ASSMT W/SCORE & DOCD/STAND INSTRUMENT. * MOTIVE PAINTER Sign off status: Completed true * Provider: Mauricio FOSTER MD Date: 0 03/24/2024 Generated for Walter valencia/Phyliciag/eTransmitting on: 0 06/08/2024 07:27 PM CDT History and Physical Notes * HPI (History of Present Illness) Category Sub-Category Detail Notes Category Not es History of Presenting Problem Pt was seen today and Urine drug screen was done Depression screening PHQ-9 Little inte rest or pleasure in doing things: Not at all Feeling down, depressed, or hopeless: No t at all Trouble falling or staying asleep, or sl eeping too much: Not at all Feeling tired or having little energy: N ot at all Poor appetite or overeating: Not at all [...] some way: Not at all Total Score: 0 Intervention Depression Screening Findings: P ositve Follow-Up for Depression: [facility] treatment assessment, Patient follow-up to return when and if necessary Suicide Risk Assessment Performed: 03/24 Additional Evaluation for De pression: Psychiatric interview and evaluation Name of the standardized too l used for adult depression screening:: Patient Health Questionnaire (PHQ-9) Depression Screening VLADISLAV-7 (2018 Edition) Feelin g nervous, anxious, or on edge: Several days Not being able to stop or control worryi ng: Not at all Worrying too much about different things : Several days Trouble relaxing: Several days Being so restless that it is hard to sit still: Several days Becoming easily annoyed or irritable: Se veral days Feeling afraid as if something awful jihan ht happen: Not at all Total VLADISLAV-7 Score: 5 If you checked any problems, how difficult have they made it for you to do your work, take care of things at home, or get along with other people?: Somewhat difficult Interpretation of Total: (5 to 9) Mild [place]-Suicide Severity Rating Scale Suicide Risk (CSRS-screener) in the past one month Have you wished you were or wished you could go to sleep and not wake up?: No in the past one month Have y ou actually had any thoughts of killing yourself?: No Examination Category Sub-Category Detail Notes Category Not es General Examination Mental Status Examination: Patient's mood appears stable with no reported major depression or anxiety. Depression score noted as flat, indicating no significant depressive symptoms. Patient reports being able to handle things that come up without panicking. Vital Signs: review the notes for vitals Medication trials and adjustments: - Zolpidem 10mg for insomnia - Sertraline 100mg daily - Rosuvastatin for lipids - Pregabalin for neuropathic pain - Lansoprazole for GI issues - Nasal inhaler (unspecified) - Xanax (mentioned, dosage not specified) No recent lab tests or other diagnostic results provided.
--- OUTSIDE RECORDS SUMMARY | 2024-06-08 19:28 | XMS_ITS | Clinical Summary ---
Author Organization [facility] Address [address] [place] [address] Phone Care Team Providers Care Cinnamon Grinder Name Role Phone Gina Alvarenga Primary Care Provider [phone] Allergies No known active allergies Medications LANSOPRAZOLE ORAL Take by mouth. Active ALPRAZolam (XANAX) 0.5 mg tablet Take 0.5 mg by mouth 3 times daily as needed. Active denosumab (Prolia) 60 mg/mL Syringe 60 mg 01/03/2017 Activ e pravastatin (PRAVACHOL) 20 mg tablet TAKE 1 TABLET BY MOUTH DAILY 12/14/2020 Active pregabalin (Lyrica) 150 mg Capsule 1 cap(s) Active sertraline (ZOLOFT) 25 mg tablet TAKE 1 TABLET BY MOUTH EVERY MORNING 01/21/2021 Active zolpidem (AMBIEN) 10 mg tablet 12/14/2020 Active Active Problems Problem Noted Date Diagnosed Date Cervical spondylosis without myelopathy 02/07/20 Irritable bowel syndrome 10/30/2004 Abdominal pain, generalized 05/23/2004 Oral aphthae 02/08/2004 Lumbago 02/05/2004 Cellulitis and abscess of face 02/02/2004 Social History Tobacco Use Types Packs/Day Years Used Date Smoking Tobacco: Never Sex and Gender Information Value Date Recorded Sex Assigned at Not on file Legal Sex Male 3:22 AM [facility] Gender Identity Not on file Sexual Orientation Not on file Last Filed Vital Signs Vital Sign Reading Time Taken Comments Blood Pressure 120/68 02/06/2021 11:06 AM [facility] Pulse 70 02/06/2021 11:06 AM [facility] Temperature 36.5 C (97.7 F) 10/30/2004 3:30 PM CDT Respiratory Rate 18 02/06/2021 11:06 AM [facility] Oxygen Saturation 97% 02/06/2021 11:06 AM [facility] Inhaled Oxygen Concentration - - Weight 82.6 kg (182 lb) 02/06/2021 11:06 AM [facility] Height 177.8 cm (5' 10 ) 02/06/2021 11:06 AM [facility] Body Mass Index 26.11 02/06/2021 11:06 AM [facility] Plan of Treatment Health Maintenance Due Date Last Done Comments COLORECTAL SCREENING 07/12/2003 Colorectal Cancer Screening 07/12/2003 FIT-DNA Q 3 years 07/12/2003 FIT/FOBT Q 1 year 07/12/2003 Flex Sig/CT Colonography Q 5 years 07/12/2003 PNEUMOCOCCAL VACCINE 50+ YEA RS (1 of 1 - PCV) 2008 ZOSTER VACCINE (1 of 2) 2008 INFLUENZA VACCINE (#1) 2023 , 12/19/2017, 12/19/2016, Additional history exists DTAP/TDAP/TD VACCINES (2 - T d or Tdap) 08/24/2025 08/25/2015 RSV VACCINE (60+ or ) (1 - 1-dose 75+ series) 2033 Insurance PPO MCR Care Teams Cinnamon Grinder Relationship Specialty Start Date End Date Gina Alvarenga DO [phone] (work) PCP - General Internal Medicine 10/06/09
--- OUTSIDE RECORDS SUMMARY | 2024-06-08 19:28 | XMS_ITS ---
Author Organization [facility] Address [address] [place] [address] Care Team Providers Care Print Binding Worker Name Role Phone Saima FELICIANO, Dino Primary Care Provider Jamarcus Johnson Unavailable [phone] Allergies No Known Allergies REASON FOR VISIT ARC follow-up; worse over the past year, continues allergy avoidance, on meds, and considering SCIT. Continues to feel nasal sprays are beneficial in controlling cough, Increased cough only in the setting of PND. No other history of lower airway issues Medications Medication SIG (Take, Route, Frequency, Duration) Notes Start Date End Date Status Xyzal Allergy 24HR A ctive Cetirizine HCl 10 MG 1 tab(s) orally onc e a day for 30 days Active Fluticasone Propionate 50 MCG/ACT 2 sprays in each nostril Nasally Twice a day for 30 days Active Fluticasone Propionate 50 MCG/ACT 2 spray(s) in each nostril twice a day for 30 days Active Pravastatin Sodium 40 MG 1 tab(s) orally once a day Active Azelastine HCl 137 MCG/SPRAY 2 sprays in each nostril Nasally Twice a day for 30 days Active Azelastine HCl 137 MCG/SPRAY 2 sprays in each nostril Nasally Twice a day for 30 days Active NASAL WASHES N/A as directed intranas ally as needed for 30 days Active Fluticasone Propionate 50 MCG/ACT 2 spray(s) in each nostril twice a day for 90 days Not-Taking CETIRIZINE 10 mg 1 tab(s) orally once a day for 30 days Active Sertraline HCl 100 MG for 90 Days Active Lansoprazole 30 MG for 90 Days Active Zolpidem Tartrate 5 MG 1 tab(s) orally o nce a day (at bedtime) Active ALPRAZolam 0.5 MG for 30 Days Active Pregabalin 200 MG for 90 Days Active Social History Tobacco Use: Social History Observation Description Date Details (start date - stop date) Never Smoker NA - NA Smoking Smart Form: Question Answer Notes Are you a: never smoker Tobacco Control (Standard) Question Answer Notes Tobacco use: Nonsmoker Vital Signs Blood pressure systolic 120 mm Hg 05/25/19 25 Blood pressure diastolic 74 mm Hg 025 Height 70 in 05/24/2024 Weight 205.6 lbs 05/24/2024 BMI 29.5 kg/m2 05/24/2024 Oximetry 96 % 05/24/2024 Encounters Encounter Location Date Provider Diagnosis [facility] [address] [facility] [address] [place] [address] 05/24/2024 Jamarcus Ramirez Allergic rhinitis du e to pollen J30.1 ; Allergic rhinitis due to animal (cat) (dog) hair and dander J30.81 ; Other allergic rhinitis J30.89 ; Other chronic allergic conjunctivitis H10.45 and Chronic cough R05.3 Assessments Encounter Date Diagnosis (ICD Code) Assessment Notes Treatment Notes Treatment Clinical Notes Section Notes 05/24/2024 Allergic rhinitis due to pollen (ICD-10 - J30.1) Anselmo clearly suffers from atopic disease based upon our skin testing and clinical history. Accordingly, we have introduced a new, aggressive medication regimen, discussed nasal washes and allergy-specifi c avoidance measures. He feels the most benefit [...] adjunctive treatment to current regimen 05/24/2024 Other chronic allergic conjunctivitis (ICD-10 - H10.45) Given ocular signs and symptoms I encouraged allergy avoidance measures and meds as above. If symptoms persist, consider adding additional medications including intraocular antihistamine/m ast cell stabilizer, PRN and consider SCIT as an adjunctive measure 05/24/2024 Chronic cough (ICD-10 - R05.3) Cough [...] Name:Delmi Corona carla, 11/22/2024 10:30:00 AM, [address] [facility], [address], [place], [address], Progress Notes * Anselmo BAKERDOB:1960 (63 yo M)Acc No.[id number]:05/24/2024 Progress Notes Patient: Anselmo PAREDES Provider: Avril Ramirez PA-C :1960 A ge:63 Y S ex:Male Date:05/24/2024 Address:[address] [place] [address], [id number] Pcp:Dino Landaverde MD Subjective: * Chief Complaints: * A RC follow-up; worse over the past year, continues allergy avoidance, on meds, and considering SCIT. Continues to feel nasal sprays are beneficial in controlling coughIncreased [...] onset of increased sinus drainage and related cough. He does have 2 dogs at home and feels they may be a contributing factor. Feels like getting out of the house is beneficial. His sister and brother has seasonal allergies. He resently started Xyzal with benefit due to increase congestion. He continues on F lonase, and Azelastine with benefit. Still with PND, primarly in the setting out working outside. His cough is only in the setting of drainage.That said, she reports his cough reamins resolved on azelastine. N o other history of lower airway issues. He [...] History documented. * Hospitalization/Major Diagno stic Procedure: D enies Past Hospitalization * Family History: F ather: , Yes. [...] of carpet? 2 0 Do you have grow-ia-cltd carpeting? Y es What is the age [...] Tobacco use: N onsmoker * Medications: T akingXyzal Allergy 24HR Fluticasone Propionate 50 MCG/ACT Suspension 2 sprays in each nostril Nasally Twice a day Cetirizine HCl 10 MG Tablet 1 tab(s) [...] Release Azelastine HCl 137 MCG/SPRAY Solution 2 sprays in each nostril Nasally Twice a day Taking Xyzal Allergy 24HR Taking Fluticasone Propionate 50 MCG/ACT Suspension 2 sprays in each nostril Nasally Twice a day Taking Cetirizine HCl 10 MG Tablet 1 [...] in each nostril Nasally Twice a day Not-Taking/PRNCETIRIZINE 10 mg tablet 1 tab(s) orally once a day NASAL WASHES N/A 1 quart of sterilized tap water or distilled water, 1 tsp NaCl, 1 pinch of baking soda as directed intranasally as needed Fluticasone Propionate 50 MCG/ACT Suspension 2 spray(s) in each nostril twice a day Medication List reviewed and reconciled with the patientNot-Taking/PRN CETIRIZINE 10 mg tablet 1 tab(s) orally once a day Not-Taking/PRN NASAL WASHES N/A 1 quart of sterilized tap water or distilled water, 1 tsp NaCl, 1 pinch of baking soda as directed intranasally as needed Not- Taking/PRN Fluticasone Propionate 50 MCG/ACT Suspension 2 spray(s) in each nostril twice a day Medication List reviewed and reconciled with the patient * Allergies: N .K.D.A.no[Allergies Verified] Objective: * Vitals: B P:120/74mm Hg, HR:72/min, Pulse Oximetry:96%, Ht: 70 in, Wt: 205.6 lbs, BMI:29.5Index. * Examination: G eneral examination: General appearance: [...] above.. Consider trial of SUBHASH if issues persisit? * Procedure Codes: G 8427 DOC MEDS [...] Management) * Billing Information: * Visit Code: 77574 Office Visit, Est Pt., Level 4. Modifiers: 25 * Procedure Codes: G8427 DOC MEDS VERIFIED W/PT OR RE. * Sign off status: Completed true * Provider: Avril Ramirez PA-C Date: 0 05/24/2024 Generated for Walter valencia/Colin/eTransmitting on: 0 06/08/2024 07:27 PM CDT History [...] onset of increased sinus drainage and related cough. He does have 2 dogs at home and feels they may be a contributing factor. Feels like getting out of the house is beneficial. His sister and brother has seasonal allergies. He resently started Xyzal with benefit due to increase congestion. He continues on Flonase, and Azelastine with benefit. Still with PND, primarly in the setting out working outside. His cough is only in the setting of drainage.That said, she reports his cough reamins resolved on azelastine. No other history of lower airway issues. [...]
[2024-06-08 19:34] VITALS: BP 126/80; PULSE 72; RESP 16; TEMP 36.4; O2SAT 97
--- NOTE | 2024-06-08 19:56 | ED.GENADULT ---
HPI - General Adult General Chief complaint: Headache Stated complaint: Headache and seeing double since yesterday Time Seen by Provider: 06/08/24 19:53 History of Present Illness HPI narrative: 63-year-old male presents emergency department for evaluation for headache this been going on for 1 month. Patient started having double vision yesterday. Patient states he woke up with the double vision symptoms on the . Related Data Home Medications ?Medication ?Instructions ?Recorded ?Confirmed ?Last Taken ?Type pregabalin 200 mg capsule (Lyrica) 200 mg PO BID 04/29/19 01/08/24 Unknown History zolpidem 5 mg tablet (Ambien) 5 mg PO ONCE 04/29/19 01/08/24 Unknown History alprazolam 0.5 mg tablet 0.5 mg PO DAILY PRN Anxiety 05/05/19 01/08/24 Unknown History sertraline 25 mg tablet 100 mg PO DAILY 12/31/22 01/08/24 Unknown History denosumab 60 mg/mL subcutaneous 60 mg subcut [id number] 05/06/23 01/08/24 11/03/23 History syringe (Prolia) Allergies Allergy/AdvReac Type Severity Reaction Status Date / Time No Known Allergies Allergy Verified 06/08/24 19:25 PMF Past Medical History Medical History Arthritis BMI 26.0-26.9,adult Complex regional pain syndrome History of deviated nasal septum Hyperlipidemia Insomnia Surgical History Surgical History H/O left knee surgery History of arthroplasty of finger of left hand Hx of appendectomy Hx of appendectomy Hx of tonsillectomy Hx of tonsillectomy Knee joint replacement status Family History Family History Father Heart disease Hyperlipidemia Other Family history of Alzheimer's disease Family history of congestive heart failure Family history of osteoporosis Social History Social History Smoking status: Never smoker Alcohol intake: never Do You Feel Safe in your Home?: Yes Lack of Transportation: No Lack of Food: Never True Current Housing: I Have Housing Concerned About Future Housing: No Difficulty Paying Gas/Electric Bills: No Difficulty Paying for Meds: No Currently Unemployed: No Education: High School Diploma/GED Difficulty w/ Childcare or Family Care: No Gender identity (if verbalized by the patient): Male Spiritual care concerns: No Exam Narrative: APPEARANCE: Well appearing, no pain, no distress, well-nourished. HEAD: normocephalic, atraumatic. EYES: PERRLA/EOMI, conjunctivae clear. NOSE: Normal no drainage EARS:TMS clear with good light reflex. THROAT: Pharynx clear, no exudate. NECK: Supple. No adenopathy, no masses. RESPIRATORY: Airway patent, respirations nonlabored. Clear to auscultation bilaterally, no rales, rhonchi, wheezing. CARDIOVASCULAR: Regular rate and rhythm without murmurs rubs or gallops. ABDOMINAL: Soft, nontender, nondistended, normal bowel sounds MUSCULOSKELETAL: Moves all extremities. Strength/ROM intact, No edema, No calf tenderness. NEURO: Alert. Cranial nerves II through XII intact. Good gait. Good coordination. Visual grossman intact for both eyes. Patient does not have monocular double vision. Patient appears to have a slight medial deviation of the left eye but does have full range of motion for the left eye. When patient is looking in the distance he has double vision when the right eye is covered the left eye will readjust laterally. SKIN: Warm, dry. Normal Color Course Vital Signs Vital signs: Vital Signs Temperature 97.6 F 06/08/24 19:34 Pulse Rate 72 06/08/24 19:34 Respiratory Rate 16 06/08/24 19:34 Blood Pressure 126/80 06/08/24 19:34 Pulse Oximetry 97 06/08/24 19:34 Oxygen Delivery Room Air 06/08/24 19:34 Temperature 97.6 F 06/08/24 19:34 Pulse Rate 65 06/08/24 22:08 Respiratory Rate 15 06/08/24 22:08 Blood Pressure 126/82 06/08/24 22:08 Pulse Oximetry 97 06/08/24 22:08 Oxygen Delivery Room Air 06/08/24 19:34 Medical Decision Making MDM Narrative Medical decision making narrative: 63-year-old male presenting emergency department for evaluation for double vision that started yesterday. Patient states symptoms are worse when he is looking the for distance. CTA does show a late hyperacute present acute left parietal/occipital lobe infarct. No acute hemorrhage. Patient was started on aspirin. Patient is afebrile with no leukocytosis and hemoglobin 11.4. Patient has but count of 198. Patient's INR is 1.00. Patient has no significant acute abnormalities on his CMP TSH is 4.5 and free T4 is pending at this time. UA was negative for infection, chest x-ray shows no acute cardiopulmonary abnormality. EKG shows normal sinus rhythm. There is no neurologic services at [facility] for the next 2 days. Patient does have prior care in the [facility]. [facility] transfer line did have availability at [facility]. And discussion with the hospitalist they recommended starting the patient on a Plavix load in addition to the aspirin he was already treated with. Patient was also started on 40 mg atorvastatin. Differential Diagnosis Differential Diagnosis: CVA, TIA Vital Signs Vital Signs: Vital Signs Temperature 97.6 F 06/08/24 19:34 Pulse Rate 72 06/08/24 19:34 Respiratory Rate 16 06/08/24 19:34 Blood Pressure 126/80 06/08/24 19:34 Pulse Oximetry 97 06/08/24 19:34 Oxygen Delivery Room Air 06/08/24 19:34 Temperature 97.6 F 06/08/24 19:34 Pulse Rate 65 06/08/24 22:08 Respiratory Rate 15 06/08/24 22:08 Blood Pressure 126/82 06/08/24 22:08 Pulse Oximetry 97 06/08/24 22:08 Oxygen Delivery Room Air 06/08/24 19:34 Lab Data 06/08/24 20:09 06/08/24 20:09 Labs: Lab Results 06/08/24 06/08/24 Range/Units 20:09 20:37 WBC 5.2 (4.5-10.0) K/mm3 RBC 3.77 L (4.6-6.20) M/mm3 Hgb 11.4 L (14.0-18.0) g/dL Hct 36.1 L (42.0-52.0) % MCV 95.8 (80-100) fl MCH 30.2 (26-34) pg MCHC 31.6 L (32-36) g/dl RDW 12.7 (11.5-14.5) % Plt Count 198 (150-375) k/mm3 MPV 11.3 H (7.4-10.4) fl Immature Gran % (Auto) 0.2 (0-0.5) % Neut % (Auto) 50.5 (45.5-73.1) % Lymph % (Auto) 34.0 (18.3-44.2) % Beadle % (Auto) 11.6 H (2.6-8.5) % Eos % (Auto) 3.1 (0-4.4) % Baso % (Auto) 0.6 (0.2-1.2) % Lymph # (Auto) 1.76 (0.9-3.2) K/mm3 Beadle # (Auto) 0.6 (0.1-0.6) K/mm3 Eos # (Auto) 0.2 (0-0.3) K/mm3 Baso # (Auto) 0.0 (0.0-0.1) K/mm3 Abs Immat Gran (auto) 0.01 (0.00-0.031) K/mm3 Absolute Neuts (auto) 2.6 (1.3-6.7) K/mm3 Absolute Nucleated RBC 0.000 (0.0-0.012) K/mm3 Nucleated RBC % 0.0 (0.0-0.2) % PT 13.5 (11.1-14.7) Seconds INR 1.0 APTT 30.7 (22.3-36.8) Seconds Sodium 138 (137-145) mmol/L Potassium 4.0 (3.4-5.0) mmol/L Chloride 103 (98-107) mmol/L Carbon Dioxide 29 (22-30) mmol/L Anion Gap 6 (4-12) mmol/L BUN 14 (9-20) mg/dL Creatinine 1.30 (0.7-1.3) mg/dL Estim Creat Clear Calc 51 ml/min Estimated GFR 55 L (59 - ) Glucose 105 (65-110) mg/dL Calcium 9.1 (8.4-10.2) mg/dL Magnesium 2.0 (1.6-2.3) mg/dL Total Bilirubin 0.4 (0.2-1.3) mg/dL AST 42 (17-59) U/L ALT 27 (6-50) U/L Alkaline Phosphatase 55 (38-126) U/L Total Protein 7.0 (6.3-8.2) g/dL Albumin 4.3 (3.5-5.1) g/dL TSH (Reflex) 4.550 (0.465-4.68) uIU/mL Free T4 Pending Urine Color Yellow (Yellow) Urine Appearance Clear (Clear) Urine pH 5.5 (5.0-9.0) Ur Specific [place] 1.011 (1.001-1.035) Urine Protein Negative (Negative) mg/dL Urine Glucose (UA) Negative (Negative) mg/dL Urine Ketones Negative (Negative) mg/dL Ur Blood (Man) Negative (Negative) Urine Nitrate Negative (Negative) Urine Bilirubin Negative (Negative) Urine Urobilinogen 1.0 (<2.0) mg/dL Leukocyte Esterase Rfl Negative (Negative) KEENAN/UL Critical Care Time Critical Care Time Critical Care Time: Yes Total Critical Care Time: 35 Discharge Plan Discharge Clinical Impression: Parietal lobe infarction, Double vision Patient Disposition: Acute Care Hospital Condition: Serious Patient Language: Macanese Prescriptions: No Action zolpidem [Ambien] 5 mg tablet 5 mg PO ONCE pregabalin [Lyrica] 200 mg capsule 200 mg PO BID Calcium 600 with Vitamin D3 600 mg(1,500mg) -400 unit tablet,chewable 1 tablet PO .twice daily Qty: 180 1RF alprazolam 0.5 mg tablet 0.5 mg PO DAILY PRN (Reason: Anxiety) Patient Comments: . sertraline 25 mg tablet 100 mg PO DAILY Prolia 60 mg/mL syringe 60 mg subcut [id number] lansoprazole 30 mg capsule,delayed release(DR/EC) See Rx Instructions .ROUTE .COMPLEX Qty: 90 1RF Dose Instruction: TAKE 1 CAPSULE BY MOUTH DAILY Rx Instructions: TAKE 1 CAPSULE BY MOUTH DAILY rosuvastatin 40 mg tablet See Rx Instructions .ROUTE .COMPLEX Qty: 90 1RF Dose Instruction: TAKE 1 TABLET BY MOUTH DAILY Rx Instructions: TAKE 1 TABLET BY MOUTH DAILY Follow-up/Referrals: Dino Landaverde MD [Primary Care Provider] - Quality Stroke Scale Stroke Scale 1: 1a Level of consciousness: alert-0 1b Level of consciousness questions: answers both correctly-0 1c Level of consciousness commands: obeys both correctly-0 2 Best gaze: partial gaze palsy-1 3 Visual: no visual loss-0 4 Facial palsy: normal-0 5a Motor: left arm: no drift-0 5b Motor: right arm: no drift-0 6a Motor: left leg: no drift-0 6b Motor: right leg: no drift-0 7 Limb ataxia: absent-0 8 Sensory: normal-0 9 Best language: no aphasia-0 10 Dysarthria: normal-0 11 Extinction and inattention: no abnormality-0 Level:: 1
--- NOTE | 2024-06-08 19:57 | ECG_ITS ---
Test Date: 2024-06-08 20:10:25 Measurements Intervals [place] Rate: 60 P: 10 OK: 179 QRS: 19 QRSD: 84 T: 10 QT: 371 QTc: 373 Interpretive Statements SINUS RHYTHM LOW QRS VOLTAGE IN PRECORDIAL LEADS [QRS DEFLECTION < 1.0 mV IN CHEST LEADS] No previous ECG available for comparison Electronically Signed On 06-09-2024 12:47:33 CDT by Bob Huynh M.D.
--- OUTSIDE RECORDS SUMMARY | 2024-06-08 20:14 | XMS_ITS | Encounter Summary ---
Author Organization [facility] Address [address] [place] [address] Care Team Providers Care Renovation Plant Supervisor Name Role Phone Gina Alvarenga DO Primary Care Provider [phone] Encounter Details Date Type Department Care Team (Late st Contact Info) Description 02/02/2004 Outpatient Historical [address] [place] [address] Soco Ramirez MD Social History Tobacco Use Types Packs/Day Years Used Date Smoking Tobacco: Never Assessed Sex and Gender Information Value Date Recorded Sex Assigned at Not on file Legal Sex Male 3:22 AM LAND EXAMINER Gender Identity Not on file Sexual Orientation Not on file documented as of this encounter Last Filed Vital Signs Vital Sign Reading Time Taken Comments Blood Pressure 140/80 02/02/2004 2:00 PM LAND EXAMINER Pulse 58 02/02/2004 2:00 PM LAND EXAMINER Temperature 37 C (98.6 F) 02/02/2004 2:00 PM LAND EXAMINER Respiratory Rate - - Oxygen Saturation - - Inhaled Oxygen Concentration - - Weight 83.5 kg (184 lb) 02/02/2004 2:00 PM LAND EXAMINER Height - - Body Mass Index - - documented in this encounter Plan of Treatment Not on file documented as of this encounter Visit Diagnoses Not on filedocumented in this encounter Care Teams Renovation Plant Supervisor Relationship Specialty Start Date End Date Gina Alvarenga DO PCP - General Internal Medicine 10/06/09 documented as of this encounter
--- OUTSIDE RECORDS SUMMARY | 2024-06-08 20:15 | XMS_ITS | Clinical Summary ---
Author Organization [facility] Address [address] [place] [address] Care Team Providers Care Battery Technician Name Role Phone Guillermo Florentino MD Primary Care Provider Source Comments [facility],non-owned Affiliates and Associated Physician Practices is amultiple site organization consisting of ambulatory clinics and hospital sitesin [place], [place], [place] and [place]. This disclosure is being madepursuant to the Care Everywhere program and may not contain all information available regarding this patient. Last updated 17.[facility] Allergies No known active allergies Medications * [...] Comments Blood Pressure 110/70 05/08/2019 2:25 PM CHOCOLATE MAKER Pulse 80 05/08/2019 2:25 PM CHOCOLATE MAKER Temperature 36.9 C (98.5 F) 05/08/2019 2:25 PM CHOCOLATE MAKER Respiratory Rate 16 05/08/2019 2:25 PM CHOCOLATE MAKER Oxygen Saturation 98% 05/08/2019 2:25 PM CHOCOLATE MAKER Inhaled Oxygen Concentration - - Weight 79.4 kg (175 lb) 05/08/2019 2:25 PM CHOCOLATE MAKER Height 177.8 cm (5' 10 ) 05/08/2019 2:25 PM CHOCOLATE MAKER Body Mass Index 25.11 05/08/2019 2:25 PM CHOCOLATE MAKER Plan of Treatment Health Maintenance Due Date [...] age to complete this topic Care Teams Battery Technician Relationship Specialty Start Date End Date Guillermo Florentino MD [address] [address] PCP - General Internal Medicine 12/19/17
--- OUTSIDE RECORDS SUMMARY | 2024-06-08 20:15 | XMS_ITS | Clinical Summary ---
Author Organization [facility] Address [address] [place] [address] Phone Care Team Providers Care Marketing Communications Specialist Name Role Phone Gina Alvarenga Primary Care Provider [phone] Allergies No known active allergies Medications LANSOPRAZOLE [...] on file Legal Sex Male 3:22 AM CONSTRUCTION ENGINEERING MANAGER Gender Identity Not on file Sexual Orientation Not on file Last Filed Vital Signs Vital Sign Reading Time Taken Comments Blood Pressure 120/68 02/06/2021 11:06 AM CONSTRUCTION ENGINEERING MANAGER Pulse 70 02/06/2021 11:06 AM CONSTRUCTION ENGINEERING MANAGER Temperature 36.5 C (97.7 F) 10/30/2004 3:30 PM CDT Respiratory Rate 18 02/06/2021 11:06 AM CONSTRUCTION ENGINEERING MANAGER Oxygen Saturation 97% 02/06/2021 11:06 AM CONSTRUCTION ENGINEERING MANAGER Inhaled Oxygen Concentration - - Weight 82.6 kg (182 lb) 02/06/2021 11:06 AM CONSTRUCTION ENGINEERING MANAGER Height 177.8 cm (5' 10 ) 02/06/2021 11:06 AM CONSTRUCTION ENGINEERING MANAGER Body Mass Index 26.11 02/06/2021 11:06 AM CONSTRUCTION ENGINEERING MANAGER Plan of Treatment Health Maintenance Due Date [...] series) 2033 Insurance PPO MCR Care Teams Marketing Communications Specialist Relationship Specialty Start Date End Date Gina Alvarenga DO [phone] (work) PCP - General Internal Medicine 10/06/09
--- OUTSIDE RECORDS SUMMARY | 2024-06-08 20:15 | XMS_ITS | Encounter Summary ---
Author Organization [facility] Address [address] [place] [address] Care Team Providers Care Acds Block 1 Operator Name Role Phone Gina Alvarenga DO Primary Care Provider [phone] Encounter Details Date Type Department Care Team (Late st Contact Info) Description 10/30/2004 Outpatient Historical [address] [place] [address] Soco Ramirez MD Social History Tobacco Use Types Packs/Day Years Used Date Smoking Tobacco: Never Assessed Sex and Gender Information Value Date Recorded Sex Assigned at Not on file Legal Sex Male 3:22 AM OVERCASTER Gender Identity Not on file Sexual Orientation [...] on filedocumented in this encounter Care Teams Acds Block 1 Operator Relationship Specialty Start Date End Date Gina Alvarenga DO PCP - General Internal Medicine 10/06/09 documented as of this encounter
--- OUTSIDE RECORDS SUMMARY | 2024-06-08 20:15 | XMS_ITS | Encounter Summary ---
Author Organization [facility] Address [address] [place] [address] Care Team Providers Care Scientific Associate Name Role Phone Gina Alvarenga DO Primary Care Provider [phone] Encounter Details Date Type Department Care Team (Late st Contact Info) Description 02/08/2004 Outpatient Historical [address] [place] [address] Soco Ramirez MD Social History Tobacco Use Types Packs/Day Years Used Date Smoking Tobacco: Never Assessed Sex and Gender Information Value Date Recorded Sex Assigned at Not on file Legal Sex Male 3:22 AM SALES ATTENDANT BUILDING MATERIALS Gender Identity Not on file Sexual Orientation Not on file documented as of this encounter Last Filed Vital Signs Vital Sign Reading Time Taken Comments Blood Pressure 128/80 02/08/2004 2:00 PM SALES ATTENDANT BUILDING MATERIALS Pulse 88 02/08/2004 2:00 PM SALES ATTENDANT BUILDING MATERIALS Temperature 36.6 C (97.8 F) 02/08/2004 2:00 PM SALES ATTENDANT BUILDING MATERIALS Respiratory Rate 18 02/08/2004 2:00 PM SALES ATTENDANT BUILDING MATERIALS Oxygen Saturation - - Inhaled Oxygen Concentration - - Weight - - Height - - Body Mass Index - - documented in this encounter Plan of Treatment Not on file documented as of this encounter Visit Diagnoses Not on filedocumented in this encounter Care Teams Scientific Associate Relationship Specialty Start Date End Date Gian Alvarenga DO PCP - General Internal Medicine 10/06/09 documented as of this encounter
--- OUTSIDE RECORDS SUMMARY | 2024-06-08 20:15 | XMS_ITS | Encounter Summary ---
Author Organization [facility] Address [address] [place] [address] Care Team Providers Care Second Cutter Name Role Phone Gina Alvarenga DO Primary Care Provider [phone] Encounter Details Date Type Department Care Team (Late st Contact Info) Description 05/23/2004 Outpatient Historical [address] 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 Gender Identity Not on file Sexual Orientation Not on file documented as of this encounter Last Filed Vital Signs Vital Sign Reading Time Taken Comments Blood Pressure 110/76 05/23/2004 9:26 PM ADHESIVE SPRAYER Pulse 60 05/23/2004 9:26 PM ADHESIVE SPRAYER Temperature - - Respiratory Rate - - Oxygen Saturation - - Inhaled Oxygen Concentration - - Weight 85.3 kg (188 lb) 05/23/2004 9:26 PM ADHESIVE SPRAYER Height - - Body Mass Index - - documented in this encounter Plan of Treatment Not on file documented as of this encounter Visit Diagnoses Not on filedocumented in this encounter Care Teams Second Cutter Relationship Specialty Start Date End Date Gina Alvarenga DO PCP - General Internal Medicine 10/06/09 documented as of this encounter
[2024-06-08 20:16] LABS: Basophils Percent Auto 0.6 % (0.2-1.2); Eosinophils Absolute Auto 0.2 K/mm3 (0-0.3); Eosinophils Percent Auto 3.1 % (0-4.4); Hematocrit 36.1 % (42.0-52.0); Hemoglobin 11.4 g/dL (14.0-18.0); Immature Granulocyte Absolute 0.01 K/mm3 (0.00-0.031); Immature Granulocyte Percent A 0.2 % (0-0.5); Lymphocytes Absolute Auto 1.76 K/mm3 (0.9-3.2); Mean Corpuscular HGB Conc 31.6 g/dl (32-36); Mean Corpuscular Hemoglobin 30.2 pg (26-34); Mean Corpuscular Volume 95.8 fl (80-100); Mean Platelet Volume 11.3 fl (7.4-10.4); Monocytes Absolute Auto 0.6 K/mm3 (0.1-0.6); Monocytes Percent Auto 11.6 % (2.6-8.5); Neutrophils Absolute Auto 2.6 K/mm3 (1.3-6.7); Neutrophils Percent Auto 50.5 % (45.5-73.1); Platelet Count Result 198 k/mm3 (150-375); Red Blood Count 3.77 M/mm3 (4.6-6.20); Red Cell Distribution Width 12.7 % (11.5-14.5); White Blood Count 5.2 K/mm3 (4.5-10.0)
[2024-06-08 20:27] LABS: Prothrombin Time 13.5 Seconds (11.1-14.7)
[2024-06-08 20:28] LABS: Partial Thromboplastin Time 30.7 Seconds (22.3-36.8)
[2024-06-08 20:29] LABS: Alanine Aminotransferase 27 U/L (6-50); Albumin Level 4.3 g/dL (3.5-5.1); Alkaline Phosphatase 55 U/L (38-126); Anion Gap 6 mmol/L (4-12); Aspartate Amino Transferase 42 U/L (17-59); Bilirubin,Total 0.4 mg/dL (0.2-1.3); Blood Urea Nitrogen 14 mg/dL (9-20); Calcium 9.1 mg/dL (8.4-10.2); Carbon Dioxide 29 mmol/L (22-30); Chloride 103 mmol/L (98-107); Estimated CRCL calculation 51 ml/min; Estimated Glomerular Filt Rate 55; Glucose 105 mg/dL (65-110); Sodium 138 mmol/L (137-145)
[2024-06-08 20:43] LABS: Add Urine Microscopic? NO; Appearance Urine Clear (Clear); Bilirubin Urine Negative (Negative); Blood Urine Negative (Negative); Color Urine Yellow (Yellow); Glucose Urine UA Negative (Negative); Ketones Urine Negative (Negative); Leukocyte Esterase Ur Negative LEU/UL (Negative); Nitrate Urine Negative (Negative); Protein Urine Negative (Negative); Specific Grav Ur 1.011 (1.001-1.035); pH Urine 5.5 (5.0-9.0)
[2024-06-08] MEDS: ASPIRIN 81 MG CHEWABLE TABLET 324 MG PO (22:04)
[2024-06-08 22:08] VITALS: BP 126/82; PULSE 65; RESP 15; O2SAT 97
[2024-06-08] MEDS: ATORVASTATIN 40 MG TABLET PO (23:22)
[2024-06-08] MEDS: CLOPIDOGREL BISULFATE 300 MG TABLET PO (23:22)
[2024-06-08 23:27] VITALS: BP 140/92; PULSE 63; RESP 15; O2SAT 98
[2024-06-08 23:31] LABS: Free T4 Free Thyroxine Reflex 0.85 ng/dL (0.78-2.19)
[2024-06-09 00:06] VITALS: BP 126/84; PULSE 75; RESP 15; O2SAT 97
[2024-06-09 00:23] LABS: Total Triiodothyronine (T3) 1.36 NG/ML (0.97-1.69)
== END 2024-06-09 00:08 | disposition short-term general hospital (02) ==
PROVIDERS: Emergency Provider Emergency Medicine; PCP Family Medicine
DX: I63.9 Cerebral infarction, unspecified (principal); H53.2 Diplopia; M19.90 Unspecified osteoarthritis, unspecified site; E78.5 Hyperlipidemia, unspecified
CPT/HCPCS: 36415; 70496; 70498; 71046; 80053; 81003; 83735; 84439; 84443; 84480; 85025; 85610; 85730; 93005; 99285; A9270; Q9967

== ENCOUNTER 2024-08-27 15:45 | Outpatient (CLI) | payer MEDICARE, SELFPAY ==
--- NOTE | ~2024-08-27 | MR_ITS ---
MRI of the cervical spine Clinical History: Radiculopathy Technique: Axial T2-weighted and gradient images, and sagittal T1-weighted, T2-weighted, and STIR romeo ges were acquired. COMPARISON: 02/08/2023 Findings: No acute fracture. Osseous alignment unchanged. Stable 2 mm retrolisthesis of C5 over C6. N o suspicious bone marrow signal abnormality seen. At C2-C3, there is no disc bulge or herniation. No spinal canal stenosis, cord compression, or neural foraminal narrowing. At C3-C4, there is minimal disc osteophyte complex. No rand canal stenosis or cord compression. Neur al foramina appear preserved. At C4-C5, there is minimal disc osteophyte complex. No canal stenosis, cord compression, or neural fo raminal narrowing. At C5-C6, there is moderate degenerative distended. There is disc osteophyte complex which minimally flattens the ventral cord. There is bilateral neural foraminal narrowing. At C6-C7, there is disc bulge/protrusion which results in mild canal stenosis and mild flattening the ventral cord. Neural foramina are probably preserved. No abnormal signal seen in the spinal cord. Paravertebral soft tissues are unremarkable. Impression: Moderate degenerative spondylosis at C5-C6 and C6-C7, with mild flattening of the ventral cord at the se levels related to disc osteophyte complexes. Additional mild degenerative changes, as above. Stable 2 mm retrolisthesis of C5 over C6. Reviewed, dictated and finalized at [facility]. Impression: Moderate degenerative spondylosis at C5-C6 and C6-C7, with mild flattening of t he ventral cord at these levels related to disc osteophyte complexes. Additional mild degenerative changes, as above. Stable 2 mm retrolisthesis of C5 over C6.
== END 2024-08-27 15:46 | disposition home or self-care (01) ==
LOC: MICIMG 15:46
PROVIDERS: PCP Orthopaedic Surgery; Visit Provider Orthopaedic Surgery
DX: M47.22 Other spondylosis with radiculopathy, cervical region (principal)
CPT/HCPCS: 72141

== ENCOUNTER 2024-10-25 08:58 | Outpatient (CLI) | payer MEDICARE, SELFPAY ==
--- NOTE | ~2024-10-25 | DEXA_ITS ---
Bone Density Report Name: LALI BAKER Age: 64 Sex: Male Ethnicity: White Date of : 1960 Indication: Referring Provider: EDUARDO CARSON Study: Bone densitometry was performed. Exam Date: October 25, 2024 Accession number: [id number] Bone Density: Region BMD T-score Z-score Classification AP Spine(L1-L4) 0.880 -1.9 -1.1 Osteopenia Femoral Neck (Left) 0.701 -1.7 -0.6 Osteopenia Total Hip (Left) 0.878 -1.0 -0.5 Normal Femoral Neck (Right) 0.669 -1.9 -0.9 Osteopenia Total Hip (Right) 0.834 -1.3 -0.8 Osteopenia Total Hip Mean 0.856 -1.2 -0.7 Osteopenia World Health Organization criteria for BMD impression classify patients as: Normal (T-score at or above -1.0), Osteopenia (T-score between -1.0 and -2.5), or Osteoporosis (T-score at or below -2.5). 10-year Fracture Risk(1): Major Osteoporotic Fracture 7.3% Hip Fracture 1.5% Reported Risk Factors: [place] (), Neck BMD=0.669, BMI=28.7 (1) FRAX(R) Version 3.08. Fracture probability calculated for an untreated patient. Fracture probability may be lower if the patient has received treatment. Clinical Information Provided by Patient: Has used the following medications: Prolia (i.e. denosumab) Patient maximum height was 70.0 No regular weight bearing exercise Does not regularly consume dairy products Drinks caffeinated beverages Impression: The patient has low bone mass, based on the Total Spine T-score. The patient has an estimated ten-year risk of hip fracture of 1.5% and an estimated ten-year risk of major fracture of 7.3%, based on the WHO FRAX algorithm. Discussion: BONE DENSITY IS LOW AT ONE OR MORE SKELETAL SITES. This patient's lowest T-score is low at one or more skeletal sites. It meets the World Health Organization's (WHO) criteria for ?low bone mass? (T-score between -1.0 and -2.5). The patient's 10-year risk of fracture as calculated by FRAX is less than the threshold where pharmacological therapy is recommended by the National Osteoporosis Foundation (NOF). However, all treatment decisions require clinical judgment and consideration of individual patient factors, including patient preferences, comorbidities, previous drug use, risk factors not captured in the FRAX model (e.g., frailty, falls, vitamin D deficiency, increased bone turnover, interval significant decline in bone density) and possible under or overestimation of fracture risk by FRAX. The patient should follow a healthful lifestyle (good nutrition with adequate calcium and vitamin D, and appropriate weight-bearing exercise). Follow-Up: Consider repeating this study in 2 to 3 years to reassess this patient's status, or sooner if there is some new clinical indication. Reported by: JESNEIA on 10/25/2024 9:34:00 AM. Reviewed, dictated and finalized at location A.
--- OUTSIDE RECORDS SUMMARY | 2024-10-25 09:05 | XMS_ITS | Encounter Summary ---
Author Organization [facility] Address [address] [place] [address] Care Team Providers Care Inside Sales Name Role Phone Gina Alvarenga DO Primary Care Provider [phone] Encounter Details Date Type Department Care Team (Late st Contact Info) Description 02/02/2004 Outpatient Historical [address] 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 Gender Identity Not on file Sexual Orientation Not on file documented as of this encounter Last Filed Vital Signs Vital Sign Reading Time Taken Comments Blood Pressure 140/80 02/02/2004 2:00 PM GROUP THERAPIST Pulse 58 02/02/2004 2:00 PM GROUP THERAPIST Temperature 37 C (98.6 F) 02/02/2004 2:00 PM GROUP THERAPIST Respiratory Rate - - Oxygen Saturation - - Inhaled Oxygen Concentration - - Weight 83.5 kg (184 lb) 02/02/2004 2:00 PM GROUP THERAPIST Height - - Body Mass Index - - documented in this encounter Plan of Treatment Not on file documented as of this encounter Visit Diagnoses Not on filedocumented in this encounter Care Teams Inside Sales Relationship Specialty Start Date End Date Gina Alvarenga DO PCP - General Internal Medicine 10/06/09 documented as of this encounter
--- OUTSIDE RECORDS SUMMARY | 2024-10-25 09:05 | XMS_ITS | Clinical Summary ---
Author Organization [facility] Virtual Care Address [address] [place] [phone] Phone Care Team Providers Care Caramel Candy Maker Name Role Phone Dino Landaverde MD Primary Care Provider [phone] Allergies Active Allergy Reactions Criticality Noted Date Comments Mold Sneezing Low 06/09/2024 Congestion Tree And Shrub Pollen Sneezing Low 06/09/2024 Poppler trees Medications ALPRAZolam (XANAX) 0.5 mg tablet Take 1 tablet (0.5 mg total) by mouth 3 (three) times a day as needed Active rosuvastatin (CRESTOR) 40 mg tablet Take 1 tablet (40 mg total) by mouth daily 5 Active sertraline (ZOLOFT) 100 mg tablet Take 1 tablet (100 mg total) by mouth every morning 1 Active zolpidem (AMBIEN) 10 mg tablet Take 0.5 tablets (5 mg total) by mouth nightly as needed 1 Active pregabalin (LYRICA) 200 mg capsule Take 1 capsule (200 mg total) by mouth 2 (two) times a day 5 Active lansoprazole (PREVACID) 30 mg capsule Take 1 capsule (30 mg total) by mouth daily Active divalproex DR (DEPAKOTE) 500 mg EC tablet Take 1 tablet (500 mg total) by mouth 2 (two) times a day for 5 doses 5 tablet 5 Active Additional Information Patient not taking.Reported on 06/25/2024 aspirin 81 mg chewable tablet Take 1 tablet (81 mg total) by mouth daily 30 tablet 11 5 06/13/19 26 Active clopidogreL (PLAVIX) 75 mg tablet Take 1 tablet (75 mg total) by mouth daily for 19 doses 19 tablet 5 Active traMADoL (ULTRAM) 50 mg tablet Take 1 tablet (50 mg total) by mouth every 6 (six) hours as needed for pain for up to 7 days 28 tablet 5 Active rimegepant (Nurtec ODT) tablet,disinteg rating Place 1 tablet (75 mg total) under the tongue daily as needed (migraine) 8 tablet 5 5 Active Additional Information Patient not taking.Reported on 09/21/2024 ubrogepant (Ubrelvy) 100 mg tabletIndicatio ns:Migraine Take 1 tablet (100 mg total) by mouth once as needed for migraine May repeat dose once in 2 hours if no relief. Do not exceed 2 doses in 24 hours. 10 tablet 11 5 09/15/19 26 Active gabapentin, bulk, 100 % powder 2 5 Active Active Problems Problem Noted Date Diagnosed Date Age-related nuclear cataract of both eyes 2024 Assessment & Plan (08/31/2024 1:45 PM CDT): Pt is asymptomatic. Defer cataract extraction (CE) until signs/sx indicate. Recommend UV eye protection. Cont annual eye exam at [facility] Diplopia 06/15/2024 Assessment & Plan (08/31/2024 1:45 PM CDT): No recurrence, call with any new sx Assessment & Plan (08/23/2024 7:31 PM CDT): Resolved, exam re-assuring. No EOM palsy No s/sx GCA Pt ed to contact us immediately should sx recur Assessment & Plan (06/15/2024 2:32 PM CDT): Non-comitant RET w/ mild restriction OD in right gaze. Presented to ED 1 week ago and MRI found a lesion of his left occipital lobe, unlikely to be cause for diplopia. Carotid doppler <50% stenosis. ? Of CNVI palsy vs MG vs GIL. No microvascular risk factors, no ptosis, no other neurological symptoms besides frontal headache. Will order labs. RTC 1 month for repeat measurements. Continue patching for now. ED precautions with trouble breathing, new stroke symptoms. 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 02/10/2012 Closed fracture of condyle of femur 02/10/2012 Knee pain 01/29/2012 Encounters Date Type Department Care Team Description 09/21/2024 11:30 AM CDT Office Visit [facility] Neurology [address] [place] [address] [place] [phone] Odalis Alves NP Diplopia (Primary Dx); Abnormal MRI of head 09/21/2024 Telephone [facility] Neurology [address] [place] [address] [place] [phone] Odalis Alves NP Prior Auth (Ubrelvy 100mg) 09/15/2024 Telephone [facility] Neurology [address] [place] [address] [place] [phone] Afshan Sneed NP 09/13/2024 Telephone [facility] Neurology [address] [place] [address] [address] [place] [address] Odalis Alves NP Prior Auth (Nurtec 75 mg) 08/31/2024 1:00 PM CDT Office Visit [facility] Ophthalmology [address], [address] [place] [id number] Cecile Begum, OD Acute CVA (cerebrovascular accident) (HCC) (Primary Dx); Age-related nuclear cataract of both eyes; Diplopia 08/31/2024 12:50 PM CDT Imaging Exam [facility] Ophthalmology [address] [facility] [facility] [address] [place] [address] Diplopia 08/02/2024 Orders Only [facility] Ophthalmology [address], [address] [place] [address] Cecile Begum, OD Diplopia (Primary Dx) from Last 3 Months Surgical History Surgery Date Site/Laterality Comments IN APPENDECTOMY Appendectomy - (Added by TW Conv) IN ADENOIDECTOMY PRIMARY <AGE 10 Adenoidectomy - (Added by TW Conv) IN TONSILLECTOMY PRIMARY/SEC ONDARY <AGE 10 Tonsillectomy - (Added by TW Conv) IN ARTHROSCOPY KNEE DIAGNOST IC W/WO SYNOVIAL BX SPX Arthroscopy Knee - (Added by TW Conv) Medical History Medical History Date Comments Mononeuropathy of lower extremity Neuropathy of lower extremity - (Added by TW Conv) Gastro-esophageal reflux dis ease without esophagitis Gastric reflux - (Added by T W Conv) Personal history of other di seases of the digestive system History of hiatal hernia - ( Added by TW Conv) Osteoarthritis Osteoarthritis - (Added by TW Conv) Personal history of other di seases of the musculoskeletal system and connective tissue History of osteoporosis - (A dded by TW Conv) Family History Medical History Relation Name Comments Heart disease Father Family history of cardiovascular disease - (Added by TW Conv) Stroke Father Family history of cerebrovascular accident - (Added by TW Conv) Relation Name Status Comments Father Social History Tobacco Use Types Packs/Day Years Used Date Smoking Tobacco: Never [facility] Utilities Answer Date Recorded In the past 12 months has [employer] electric, gas, oil, or water company threatened to shut off services in your home? No 06/09/2024 Social Connection and Isolation Panel Answer Date Recorded In a typical week, how many times do you talk on the phone with family, friends, or neighbors? More than three times a week 06/09/2024 How often do you get togethe r with friends or relatives? More than three times a week 06/09/2024 How often do you attend [facility] or protestant services? Never 06/09/2024 Do you belong to any clubs o r organizations such as scientology groups, unions, fraternal or athletic groups, or school groups? No 06/09/2024 How often do you attend meet ings of the clubs or organizations you belong to? Never 06/09/2024 Are you , , di vorced, , never , or living with a partner? 06/09/2024 AUDIT-C Answer Date Recorded Q1: How often do you have a drink containing alcohol? Never 06/09/2024 Q2: How many drinks containi ng alcohol do you have on a typical day when you are drinking? Patient does not drink Q3: How often do you have si x or more drinks on one occasion? Never 06/09/2024 Overall Financial Resource Strain (CARDIA) Answe r Date Recorded How hard is it for you to pa y for the very basics like food, housing, medical care, and heating? Not very hard 06/09/2024 Hunger Vital Sign Answer Date Recorded Within the past 12 months, y ou worried that your food would run out before you got the money to buy more. Never true 06/10/19 25 Within the past 12 months, t he food you bought just didn't last and you didn't have money to get more. Never true 06/09/2024 PRAPARE - Transportation Answer Date Re corded In the past 12 months, has l ack of transportation kept you from medical appointments or from getting medications? No 05/16 In the past 12 months, has l ack of transportation kept you from meetings, work, or from getting things needed for daily living? No 06/09/2024 Housing Stability Vital Sign Answer Carlos e Recorded In the last 12 months, was t here a time when you were not able to pay the mortgage or rent on time? No 06/09/2024 In the past 12 months, how m any times have you moved where you were living? 0 06/09/2024 At any time in the past 12 [facility], were you homeless or living in a senior care (including now)? No 06/09/2024 Personal Safety Answer Date Recorded Have you ever been in or are you currently in a harmful physical or emotional relationship or is someone making you feel afraid or unsafe? 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 Gender Identity Not on file Sexual Orientation Not on file Obstetrics History Last Filed Vital Signs Vital Sign Reading Time Taken Comments Blood Pressure 100/58 09/21/2024 11:36 AM CDT Pulse 72 09/21/2024 11:36 AM CDT Temperature 36.9 C (98.4 F) 06/12/2024 7:53 AM CDT Respiratory Rate 18 06/12/2024 7:53 AM CDT Oxygen Saturation 96% 06/25/2024 3:29 PM CDT Inhaled Oxygen Concentration - - Weight 84.4 kg (186 lb) 09/21/2024 11:36 AM CDT Height 175.3 cm (5' 9.02) 09/21/2024 11:36 AM C DT Body Mass Index 27.45 09/21/2024 11:36 AM CDT Plan of Treatment Health Maintenance Due Date Last Done Comments Colon Cancer Screening-Colonoscopy 1960 Depression Screening 1960 Hepatitis C Screening 1960 Prostate Cancer Screening-PSA 1958 Hepatitis B Screening 1976 Pneumococcal vaccine 65+ (1 of 1 - PCV) 2008 Zoster Vaccine (1 of 2) 2008 Well Visit 65+ 07/12/2023 Covid-19 Vaccine (7 2023-2 5 season) 2024 12/09/2023, 12/08/2022, 04/16/2022, Additional history exists Influenza Vaccine (#1) 2024 , 12/08/2022, 12/04/2021, Additional history exists Fall Risk Assessment 06/12/2025 06/12/2024 DTaP/Tdap/Td Vaccine (2 - Td or Tdap) 03/19/2028 03/19/2018 Procedures Procedure Name Priority Date/Time Associated Diagnosis Comments ROSENBERG VISUAL FIELD - OU - BOTH EYES Routine 08/31/2024 1:33 PM CDT Diplopia from Last 3 Months Results * Rosenberg Visual Field - OU - Both Eyes (08/31/2024 1:33 PM CDT) Pattern Deviation OS 4.27 dB CONTINUUM Pattern Deviation OD 4.18 dB CONTINUUM Mean Deviation OS 1.01 dB CONTINUUM Mean Deviation OD 0.59 dB CONTINUUM Anatomical Region Laterality Modality Head Other Narrative 08/31/2024 1:35 PM CDT Right Eye Fixation was good. Cooperation was good. Reliability was good. Progression has no prior data. Foveal threshold was normal. Findings include non-specific defects. Mean Deviation was 0.59 dB. Pattern Deviation was 4.18 dB. Left Eye Fixation was good. Cooperation was good. Reliability was good. Progression has no prior data. Foveal threshold was normal. Findings include non-specific defects. Mean Deviation was 1.01 dB. Pattern Deviation was 4.27 dB. Notes Nasal edge defects each eye, no neurologic pattern of visual field (VF) loss Cecile Begum OD OPHTH VISUAL FIELD Final R esult from Last 3 Months Insurance [employer] MEDICARE PPO [facility] MEDICARE PPO Advance Directives For more information, please contact: [phone] * Full Code (Latest Code Status on File) Date Activated Date Inactivated Comments 06/09/2024 1:20 AM 06/12/2024 5:43 PM Care Teams Caramel Candy Maker Relationship Specialty Start Date End Date Dino Landaverde MD [address] [place] [address] PCP - General Family Medicine 08/31/24
--- OUTSIDE RECORDS SUMMARY | 2024-10-25 09:05 | XMS_ITS | Clinical Summary ---
Author Organization [facility] Address [address] [place] [address] Phone Care Team Providers Care Dredge Captain Name Role Phone Lyle Gina Primary Care Provider [phone] Allergies Active Allergy Reactions Criticality Noted Date Comments Mold Other (See Comments) Low 06/09/2024 Congestion Tree And Shrub Pollen Other (See Comments) Low 05/16 Poppler trees Medications lansoprazole 30 mg capsule,delayed release (PREVACID) Take 30 mg by mouth. Active ALPRAZolam (XANAX) 0.5 mg [...] zolpidem (AMBIEN) 10 mg tablet 12/14/2020 Active aspirin (KEYLA CHEWABLE) 81 mg Tablet, Chewable Take 81 mg by mouth daily. 06/12/2024 Active rosuvastatin (CRESTOR) 40 mg tablet Take 40 mg by mouth daily. 06/06/2024 Active traMADol (ULTRAM) 50 mg tablet Take 50 mg by mouth every 6 hours as needed. 06/12/2024 Active ubrogepant (UBRELVY) 100 mg tablet Take 100 mg by mouth one time only. 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 02/10/2012 Closed fracture of condyle of femur 02/10/2012 Knee pain 01/29/2012 Irritable bowel syndrome 10/30/2004 Abdominal pain, generalized 05/23/2004 Oral aphthae 02/08/2004 Lumbago 02/05/2004 Cellulitis and abscess of face 02/02/2004 Encounters Date Type Department Care Team Description 10/19/2024 External Device Data [facility]STRACTION Provider, Abstract 10/08/2024 Abstract [facility] [address] [place] [phone] Provider, Abstract 10/05/2024 External Device Data [facility] ABSTRACTION Provider, Abstract 10/05/2024 External Device Data [facility] ABSTRACTION Provider, Abstract 10/05/2024 External Device Data [facility] ABSTRACTION Provider, Abstract 09/28/2024 11:10 AM CDT Ancillary Procedure [facility] [address] [place] [phone] Sathya Child NP Neck pain 09/28/2024 11:00 AM CDT Office Visit [facility] [address] [place] [phone] Sathya Child NP Neck pain (Primary Dx) 09/22/2024 Abstract [facility] [address] [place] [address] [phone] Sathya Child NP 09/07/2024 External Device Data [facility] ABSTRACTION Provider, Abstract 09/07/2024 External Device Data [facility] ABSTRACTION Provider, Abstract 09/07/2024 External Device Data [facility] ABSTRACTION Provider, Abstract 09/01/2024 Telephone [facility] [address] [place] [phone] Chevy Buckner MD Referral Request from Last 3 Months Immunizations Immunization Administration Dates Next Due (ADACEL/BOOSTRIX)(10 YR UP) TDAP VACCINE, 0.5ML, IM 08/25/2015 INFLUENZA VACCINE QUADRIVALENT 6 MOS UP PF IM ,12/19/2016 INFLUENZA VACCINE QUADRIVALENT RECOMB 18 YR UP P F IM 12/19/2017 Influenza Vaccine Tri Split 4+ Im 12/03/2013 Family History Relation Name Status Comments Father Mother Alive Social History Tobacco Use Types Packs/Day Years Used Date Smoking Tobacco: Never Smokeless Tobacco: Never Alcohol Use Standard Drinks/Week Comments Not Currently 0 (1 standard drink = 0.6 oz pur e alcohol) Sex and Gender Information Value Date Recorded Sex Assigned at Not on file 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 Gender Identity Not on file Sexual Orientation Not on file Last Filed Vital Signs Vital Sign Reading Time Taken Comments Blood Pressure 125/76 09/28/2024 11:04 AM CDT Pulse 69 09/28/2024 11:04 AM CDT Temperature 36.3 C (97.4 F) 09/28/2024 11:04 AM CDT Respiratory Rate 16 09/28/2024 11:04 AM CDT Oxygen Saturation 97% 09/28/2024 11:04 AM CDT Inhaled Oxygen Concentration - - Weight 89.4 kg (197 lb) 09/28/2024 11:04 AM CDT Height 177.8 cm (5' 10) 09/28/2024 11:04 AM CDT Body Mass Index 28.27 09/28/2024 11:04 AM CDT Plan of Treatment Health Maintenance Due Date Last Done Comments Pre-Diabetes and Diabetes Screening 1960 COLORECTAL SCREENING 07/12/2003 Colorectal Cancer Screening 07/12/2003 FIT-DNA Q 3 years 07/12/2003 FIT/FOBT Q 1 year 07/12/2003 Flex Sig/CT Colonography Q 5 years 07/12/2003 PNEUMOCOCCAL VACCINE 50+ YEA RS (1 of 1 - PCV) 2008 ZOSTER VACCINE (1 of 2) 2008 INFLUENZA VACCINE (#1) 2024 0, 12/19/2017, 12/19/2016, Additional history exists DTAP/TDAP/TD VACCINES (2 - T d or Tdap) 08/24/2025 08/25/2015 RSV VACCINE (60+ or ) (1 - 1-dose 75+ series) 2033 Procedures Procedure Name Priority Date/Time Associated Diagnosis Comments XR CERVICAL SPINE 2 OR 3 VIEWS Routine 09/28/2024 11:17 AM CDT Neck pain MRI CERVICAL WO CONTRAST Routine 08/27/2024 11:00 AM CDT from Last 3 Months Results * XR CERVICAL SPINE 2 OR 3 VIEWS (09/28/2024 11:17 AM CDT) Anatomical Region Laterality Modality Spine Computed Radiogr aphy Narrative 09/28/2024 1:03 PM CDT Cervical Spine X-ray report: Clinical Indications -: neck pain and radiculopathy Technique: AP and lateral cervical spine films were performed today in clinic and personally reviewed by me. My findings/interpretation are: There is no evidence of interval fracture or dislocation. Cervical alignment shows a maintained cervical lordosis. Vertebrae show normal architecture Intervertebral disc spaces show significant degeneration and collapse at C5-6 since he is 5. Soft tissues of the neck are normal. Sathya Child NP DIAGNOSTIC IMAGING ORDERAB LES Final Result * MRI CERVICAL WO CONTRAST (08/27/2024 11:00 AM CDT) Anatomical Region Laterality Modality Spine Magnetic Resonan ce us Abstract Provider MR ORDERABLES Final Result from Last 3 Months Insurance [facility] Care Teams Dredge Captain Relationship Specialty Start Date End Date Gina Alvarenga DO PCP - General Internal Medicine 10/06/09
--- OUTSIDE RECORDS SUMMARY | 2024-10-25 09:05 | XMS_ITS | Encounter Summary ---
Author Organization [facility] Address [address] [place] [address] Care Team Providers Care Software Firmware Engineer Name Role Phone Gina Alvarenga DO Primary Care Provider [phone] Encounter Details Date Type Department Care Team (Late st Contact Info) Description 02/08/2004 Outpatient Historical [address] [place] [address] Soco Ramirez MD Social History Tobacco Use Types Packs/Day Years Used Date Smoking Tobacco: Never Assessed Sex and Gender Information Value Date Recorded Sex Assigned at Not on file Legal Sex Male 3:[address] DESIGN ENGINEER Gender Identity Not on file Sexual Orientation Not on file documented as of this encounter Last Filed Vital Signs Vital Sign Reading Time Taken Comments Blood Pressure 128/80 02/08/2004 2:[address] DESIGN ENGINEER Pulse 88 02/08/2004 2:[address] DESIGN ENGINEER Temperature 36.6 C (97.8 F) 02/08/2004 2:[address] DESIGN ENGINEER Respiratory Rate 18 02/08/2004 2:[address] DESIGN ENGINEER Oxygen Saturation - - Inhaled Oxygen Concentration - - Weight - - Height - - Body Mass Index - - documented in this encounter Plan of Treatment Not on file documented as of this encounter Visit Diagnoses Not on filedocumented in this encounter Care Teams Software Firmware Engineer Relationship Specialty Start Date End Date Gina Alvarenga DO PCP - General Internal Medicine 10/06/09 documented as of this encounter
--- OUTSIDE RECORDS SUMMARY | 2024-10-25 09:05 | XMS_ITS | Clinical Summary ---
Author Organization [facility] Address [address] [place] [address] Care Team Providers Care Construction Person Name Role Phone Guillermo Florentino MD Primary Care Provider Source Comments [facility],non-owned Affiliates and Associated Physician Practices is amultiple site organization consisting of ambulatory clinics and hospital sitesin [place], [place], [place] and [place]. This disclosure is being madepursuant to the Care Everywhere program and may not contain all information available regarding this patient. Last updated 17.[facility] Allergies No known active allergies Medications * Be aware that medications may not be up to date on this document. Alwaysverify current medications with the patient. LANSOPRAZOLE PO Acti ve Pregabalin (LYRICA PO) Active ALPRAZolam (XANAX) 0.5 MG tablet Take 0.5 mg by mouth 3 times daily as needed for Anxiety Active Zolpidem Tartrate (ZOLPIDEM PO) Active Immunizations Immunization Administration Dates Next Due INFLUENZA VACCINE, QUADR. (F LUZONE; FLULAVAL; FLUARIX; AFLURIA QUADRIVALENT; 6MO+), 0.5 ML (IIV4) 11/17/2019,12/19/2016 iNFLUENZA VACCINE, RECOM-GU, QUADR. (FLUBLOCK QUADRIVALENT; 18Y+) (RIV4) 12/19/2017 Social History Tobacco Use Types Packs/Day Years Used Date Smoking Tobacco: Never Smokeless Tobacco: Never Sex and Gender Information Value Date Recorded Sex Assigned at Not on file Legal Sex Male 5:49 PM CDT Gender Identity Not on file Sexual Orientation Not on file Last Filed Vital Signs Vital Sign Reading Time Taken Comments Blood Pressure 110/70 05/08/2019 2:25 PM PUBLIC SPEAKING COACH Pulse 80 05/08/2019 2:25 PM PUBLIC SPEAKING COACH Temperature 36.9 C (98.5 F) 05/08/2019 2:25 PM PUBLIC SPEAKING COACH Respiratory Rate 16 05/08/2019 2:25 PM PUBLIC SPEAKING COACH Oxygen Saturation 98% 05/08/2019 2:25 PM PUBLIC SPEAKING COACH Inhaled Oxygen Concentration - - Weight 79.4 kg (175 lb) 05/08/2019 2:25 PM PUBLIC SPEAKING COACH Height 177.8 cm (5' 10) 05/08/2019 2:25 PM PUBLIC SPEAKING COACH Body Mass Index 25.11 05/08/2019 2:25 PM PUBLIC SPEAKING COACH Plan of Treatment Health Maintenance Due Date Last Done Comments COLOGUARD (AGES 45-75) - COLON CA SCREENING 1960 COLON MONITORING 1958 COLONOSCOPY - COLON CA SCREENING 1958 CT COLONOGRAPHY - COLON CA SCREENING 1960 Colorectal Cancer Screening 1960 FIT - COLON CA SCREENING 1958 FLEX SIG - COLON CA SCREENING 1958 LIPID TESTING 1958 HEPATITIS C SCREENING 07/06/1976 DTAP/TDAP/TD VACCINES (1 - Tdap) 1977 PNEUMOCOCCAL VACCINE 50+ (1 of 1 - PCV) 2008 ZOSTER VACCINE (1 of 2) 2008 SCREENING FOR DIABETES 05/08/2019 COVID-19 VACCINE (1 - 2023- season) 2023 DEPRESSION SCREENING 03/17/2024 INFLUENZA VACCINE (#1) 2024 0, 12/25/2017, 12/19/2017, Additional history exists Respiratory Syncytial Virus (RSV) Vaccine Pt: or [...] on patient's age to complete this topic [place] [id number] Care Teams Construction Person Relationship Specialty Start Date End Date Guillermo Florentino MD [address] [address] PCP - General Internal Medicine 12/19/17
--- OUTSIDE RECORDS SUMMARY | 2024-10-25 09:05 | XMS_ITS | Encounter Summary ---
Author Organization [facility] Address [address] [place] [address] Care Team Providers Care Chief Nuclear Medicine Technologist Name Role Phone Gina Alvarenga DO Primary Care Provider [phone] Encounter Details Date Type Department Care Team (Late st Contact Info) Description 05/23/2004 Outpatient Historical [address] [place] [address] Soco Ramirez MD Social History Tobacco Use Types Packs/Day Years Used Date Smoking Tobacco: Never Assessed Sex and Gender Information Value Date Recorded Sex Assigned at Not on file Legal Sex Male 3:22 AM ALLERGIST/MD Gender Identity Not on file Sexual Orientation Not on file documented as of this encounter Last Filed Vital Signs Vital Sign Reading Time Taken Comments Blood Pressure 110/76 05/23/2004 9:26 PM ALLERGIST/MD Pulse 60 05/23/2004 9:26 PM ALLERGIST/MD Temperature - - Respiratory Rate - - Oxygen Saturation - - Inhaled Oxygen Concentration - - Weight 85.3 kg (188 lb) 05/23/2004 9:26 PM ALLERGIST/MD Height - - Body Mass Index - - documented in this encounter Plan of Treatment Not on file documented as of this encounter Visit Diagnoses Not on filedocumented in this encounter Care Teams Chief Nuclear Medicine Technologist Relationship Specialty Start Date End Date Gina Alvarenga DO PCP - General Internal Medicine 10/06/09 documented as of this encounter
--- OUTSIDE RECORDS SUMMARY | 2024-10-25 09:05 | XMS_ITS | Encounter Summary ---
Author Organization [facility] Address [address] [place] [address] Care Team Providers Care Forepart Laster Name Role Phone Gina Alvarenga DO Primary Care Provider [phone] Encounter Details Date Type Department Care Team (Late st Contact Info) Description 10/30/2004 Outpatient Historical [address] 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
--- OUTSIDE RECORDS SUMMARY | 2024-10-25 09:05 | XMS_ITS | Patient Health Record ---
Author Organization [facility] frintit Address [address] [facility] [address] [place] [address] Care Team Providers Care Hotel Concierge Name Role Phone Saima FELICIANO, Dino Primary Care Provider Unavaila Poli Barton Unavailable [phone] Allergies No Known Allergies Results Component Value Reference Range Notes Benzodiazepines Reviewed date:09/24/2024 09:03:44 PM Interpretation: Performing Lab:[address] [place] [address], Director - [id number] Notes/Report: An exception occurred while processing this report and so it has incomplete data. Please contact [employer] for assistance. Medicated Consistent Medicated Consistent Not Medicated Consistent Not Medicated Consistent Not Medicated Consistent Not Medicated Consistent Not Medicated Consistent Not Medicated Consistent Not Medicated Consistent Not Medicated Consistent 7-Aminoclonazepam NEGATIVE 20.0 ng/mL Temazepam NEGATIVE 40.0 ng/mL Oxazepam NEGATIVE 40.0 ng/mL Midazolam NEGATIVE 40.0 ng/mL Lorazepam NEGATIVE 40.0 ng/mL Nordiazepam NEGATIVE 40.0 ng/mL Diazepam NEGATIVE 40.0 ng/mL Clonazepam NEGATIVE 20.0 ng/mL Hydroxyalprazolam 21.0 20.0 ng/mL Alprazolam NEGATIVE 20.0 ng/mL PDF Report [email or web address] RC_ORU Validity Testing Reviewed date:09/24/2024 09:03:44 PM Interpretation: Performing Lab: Notes/Report: Not Medicated Consistent Not Medicated Consistent Not Medicated Consistent Not Medicated Consistent Specific Amelia 1.005 1.003 - 1.030 pH 6.5 3.0 - 10.9 Oxidants -38 200 g/mL Creatinine 26.5 20.0 - 300.0 mg/dL UDT Reviewed date:09/20/2024 08:13:35 PM Interpretation: Performing Lab: Notes/Report: THC N 0 - 50 ng/ml Cocaine N 0 - 300 ng/ml Amphetamine N 0 - 1000 ng/ml Buprenorphine (BUP) N 0 - 10 ng/ml Secobarbital (Bar) N 0 - 300 ng/ml Oxazepam (BZO) P 0 - 300 ng/ml 2-jkzejgyamq-4,3-seuhihgz-6, 3-diphenylpyr rolidine (EDDP) N 0 - 300 ng/ml Methamphetamine (MET) N 0 - 1000 ng/ml Methylenedioxymethamphetamine (MDMA) N 0 - 500 ng/ml Morphine (MOP 300/[id number]) N 0 - 300 ng/ml Methadone (MTD) N 0 - 300 ng/ml Phencyclidine (PCP) N 0 - 25 ng/ml Nortriptyline (TCA) N 0 - 1000 ng/ml Oxycodone N 0 - 300 ng/ml x N 0 - 300 ng/ml UDT Reviewed date:03/24/2024 03:32:05 PM Interpretation: Performing Lab: Notes/Report: THC N 0 - 50 ng/ml Cocaine N 0 - 300 ng/ml Amphetamine N 0 - 1000 ng/ml Buprenorphine (BUP) N 0 - 10 ng/ml Secobarbital (Bar) N 0 - 300 ng/ml Oxazepam (BZO) P 0 - 300 ng/ml 4-kfmsxasmku-3,4-sllbbtum-8, 3-diphenylpyr rolidine (EDDP) N 0 - 300 ng/ml Methamphetamine (MET) N 0 - 1000 ng/ml Methylenedioxymethamphetamine (MDMA) N 0 - 500 ng/ml Morphine (MOP 300/[id number]) N 0 - 300 ng/ml Methadone (MTD) [...] Oxazepam (BZO) P 0 - 300 ng/ml 3-wbdtfxhthi-7,4-wfsbsiul-7, 3-diphenylpyr rolidine (EDDP) N 0 - 300 ng/ml Methamphetamine (MET) N 0 - 1000 ng/ml Methylenedioxymethamphetamine (MDMA) N 0 - 500 ng/ml Morphine (MOP 300/[id number]) N 0 - 300 ng/ml Methadone (MTD) [...] 100 MG 1 tablet Oral Once a day; Duration: 90 days Active Rosuvastatin Calcium 40 MG TAKE 1 TABLET BY MOUTH DAILY Oral; Duration: 90 Days Active Sertraline HCl 100 MG TAKE 1 TABLET ONE TIME DAILY; Duration: 90 Active Pregabalin 200 MG Oral; Duration: 90 Days Active Azelastine HCl 0.1 % USE 2 SPRAYS IN EAC H NOSTRIL TWICE DAILY Nasal; Duration: 25 Days Active ALPRAZolam 0.5 MG 1 tablet Oral once a day; Duration: 30 days As needed 09/27/2024 Active Lansoprazole 30 MG Oral; Duration: 90 Days Active Zolpidem Tartrate 10 MG 1 tablet at bedt riri as needed Orally Once a day 09/20/2024 Active Zolpidem Tartrate 10 MG 1 tablet at bedt riri Oral once a day; Duration: 30 days 09/27/2024 Active Xanax 0.5 MG 1 tablet Orally Twic e a day 09/20/2024 Active Social History Tobacco Use: Social History [...] ast year? No Points 0 Interpretation Negative Section Notes: Marijuana use: Denies Tobacco use: Denies Problems Problem Type SNOMED Code ICD Code Onset Dates Problem Status W/U Status Risk Notes Problem Primary insomnia (0129446) Primary insomnia (F51.01) Active confirmed Problem Generalized anxiety disorder (05633981) VLADISLAV (generalized anxiety disorder) (F41.1) Active confirmed Problem Recurrent major depression (32400161) MDD (recurrent major depressive disorder) in remission (F33.40) Active confirmed Problem Cervical spondylosis without myelopathy (902233471) Cervical spondylosis without myelopathy (M47.812) 1 Active confirmed Problem Irritable bowel syndrome (52873141) Irritable bowel syndrome (K58.9) 5 Active confirmed Vital Signs Heart Rate 72 /min 09/20/2024 195 Height-cm 177.8 cm 09/20/2024 195 Blood pressure diastolic 81 mm Hg 09/20/2024 195 Weight-kg 88.45 kg 09/20/2024 195 Height 70 in 09/20/2024 195 Blood pressure systolic 127 mm Hg 09/20/2024 195 Weight 195 lbs 09/20/2024 195 BMI 27.98 kg/m2 09/20/2024 195 Encounters Encounter Location Date Provider Diagnosis [facility] [address] [address] 12/25/2023 Poli Arlene MDD (recurrent major depressive disorder) in remission F33.40 ; VLADISLAV (generalized anxiety disorder) F41.1 ; Primary insomnia F51.01 and Irritable bowel syndrome K58.9 [facility] [address] 03/24/2024 Poli Arlene MDD (recurrent major depressive disorder) in remission F33.40 ; VLADISLAV (generalized anxiety disorder) F41.1 ; Primary insomnia F51.01 and Irritable bowel syndrome K58.9 [facility] [address] 06/21/2024 Poli Arlene Encounter for screen ing for cardiovascular disorders Z13.6 ; Dietary counseling and surveillance Z71.3 ; Encounter for screening for depression Z13.31 ; MDD (recurrent major depressive disorder) in remission F33.40 ; VLADISLAV (generalized anxiety disorder) F41.1 ; Primary insomnia F51.01 and Irritable bowel syndrome K58.9 [facility] [address] [address] 09/20/2024 Politamela Jacobs MDD (recurrent major depressive disorder) in remission F33.40 ; VLADISLAV (generalized anxiety disorder) F41.1 ; Primary insomnia F51.01 ; Encounter for screening for cardiovascular disorders Z13.6 ; Encounter for screening for depression Z13.31 and Cervical spondylosis without myelopathy M47.812 [facility] [place] [address] [place] [address] 03/30/2024 Poli Arlene VLADISLAV (generalized anx iety disorder) F41.1 [facility] [address] [place] [address] 09/24/2024 Poli Arlene VLADISLAV (generalized anx iety disorder) F41.1 [place] [address] [place] [address] 09/24/2024 Poli Arlene Primary insomnia F51 .01 Assessments Encounter Date Diagnosis (ICD Code) Assessment [...] or specialist. - Consider referral to a body technician/painter if the patient's pain does not improve [...] arise before the next scheduled appointment. 03/24/2024 MDD (recurrent major depressive disorder) in [...] if necessary. - Reassess in 3 months. Gastroesophagea l reflux disease (GERD) - Plan: - Continue [...] - Provide 90-day prescriptions for most medications. 06/21/2024 Encounter for screening for cardiovascular disorders (ICD-10 - Z13.6) 03/30/2024 VLADISLAV (generalized anxiety disorder) (ICD-10 - F41.1) 09/20/2024 VLADISLAV (generalized anxiety disorder) (ICD-10 - F41.1) Patient reports some anxiety related to upcoming surgeries. - Prescribe Xanax .5 once a day as needed. - Send 30 tablets for the next three months. 09/20/2024 MDD (recurrent major depressive disorder) in remission (ICD-10 - F33.40) Patient reports no significant changes in mood or depression over the past three months. - Send a three-month prescription for Zoloft. 09/24/2024 VLADISLAV (generalized anxiety disorder) (ICD-10 - F41.1) 09/24/2024 Primary insomnia (ICD-10 - F51.01) 03/24/2024 VLADISLAV (generalized anxiety disorder) (ICD-10 - [...] if necessary. - Reassess in 3 months. Gastroesophagea l reflux disease (GERD) - Plan: - Continue [...] - Provide 90-day prescriptions for most medications. 09/20/2024 Primary insomnia (ICD-10 - F51.01) Prescribe zolpidem 10MG daily. 06/21/2024 Dietary counseling and surveillance (ICD-10 - Z71.3) 12/25/2023 VLADISLAV (generalized anxiety disorder) (ICD-10 - [...] or specialist. - Consider referral to a body technician/painter if the patient's pain does not improve [...] or specialist. - Consider referral to a body technician/painter if the patient's pain does not improve [...] if necessary. - Reassess in 3 months. Gastroesophagea l reflux disease (GERD) - Plan: - Continue [...] - Provide 90-day prescriptions for most medications. 06/21/2024 Encounter for screening for depression (ICD-10 - Z13.31) 09/20/2024 Encounter for screening for cardiovascular disorders (ICD-10 - Z13.6) 09/20/2024 Encounter for screening for depression (ICD-10 - Z13.31) 06/21/2024 MDD (recurrent major depressive disorder) in remission (ICD-10 - F33.40) 03/24/2024 Irritable bowel syndrome (ICD-10 - K58.9) [...] if necessary. - Reassess in 3 months. Gastroesophagea l reflux disease (GERD) - Plan: - Continue [...] or specialist. - Consider referral to a body technician/painter if the patient's pain does not improve [...] symptoms arise before the next scheduled appointment. 06/21/2024 VLADISLAV (generalized anxiety disorder) (ICD-10 - F41.1) 09/20/2024 Cervical spondylosis without myelopathy (ICD-10 - M47.812) Scheduled for fusion surgery at the end of the month. Transportation post-surgery is a concern due to 's concurrent surgery. - Arrange transportation for post-surgery recovery. - Consider asking sister for help with transportation. 06/21/2024 Primary insomnia (ICD-10 - F51.01) 06/21/2024 Irritable bowel syndrome (ICD-10 - K58.9) 06/21/2024 Other Anselmo Arellano, male patient, recently hospitalized for 5 days due to acute CVA, presenting with persistent headache and resolved double vision. Acute Cerebrovascular Accident (CVA) Assessment: Patient was recently hospitalized for 5 days on a stroke protocol. MRI and CT scan revealed abnormalities, with the current working diagnosis being acute CVA. However, clinicians are still uncertain about the exact diagnosis. The patient experienced double vision for 10 days, which has since resolved, and continues to have headaches. MRI showed no intracranial hemorrhage, but revealed a small area of non-enhancing signal abnormality in the left temporal parietal occipital lobes. A spinal tap was performed to rule out infection. The patient is scheduled for a follow-up MRI on Friday to assess any changes in the brain findings. Plan: - Await results of follow-up MRI scheduled for Friday - Continue current medication regimen: sertraline 100 mg daily, alprazolam 0.5 mg daily, and zolpidem as prescribed - Discontinue divalproex sodium (patient only took 5 doses) - Follow up in 3 months Anxiety Assessment: Patient reports experiencing a little anxiety, primarily related to concerns about his current medical condition and uncertain diagnosis. Plan: - Continue sertraline 100 mg daily - Continue alprazolam 0.5 mg daily - Monitor anxiety symptoms and adjust treatment as needed Disclaimer: This note has been transcribed using speech recognition software and serves as a reflection of the patient's visit. While efforts have been made to ensure accuracy, there may be errors, including freelance interpreter/translator inaccuracies and misspellings of medication names. This document should not be considered a verbatim record, and any discrepancies should be verified with the provider. Plan Of Treatment Pending Test Test Name Order Date UDT 06/21/2024 Next Appt Details Provider Name:Poli Jacobs , 12/20/2024 01:15:00 PM, [address], [facility] [address], [address], Insurance Providers Payer Name Payer Address Payer Phone Subscriber Number Group Number Insured Name Patient Relationship to Insured Coverage Start Date Coverage End Date Clemencia ROYAL [address] [place] [address] [id number] Anselmo Arellano Self - patient is the insured Medical (General) History Medical History History ICD Code abdominal aortic aneurysm: No atrial fibrillation: No chronic fatigue syndrome: No essential tremor: No hyperlipidemia: No hypertension: No Parkinson's disease: No restless leg syndrome: No stroke: No subdural hematoma: No type 1 diabetes mellitus: No type 2 diabetes mellitus: No vitamin B12 deficiency: No vitamin D deficiency: No Imported from Highlights: Th e patient had multiple encounters with healthcare providers. On June 09, 2024, the patient was seen by Dr. Anand Jolley at [facility] for a hospital encounter. The patient had an abnormal MRI of the head and was diagnosed with an acute cerebrovascular accident (CVA), also known as a stroke. On June 15, 2024, the patient had a lab visit and an office visit with Dr. Jennifer Odonnell at [facility], where they reported experiencing diplopia (double vision). The patient also had a telephone consultation with Dr. Odonnell on the same day. The patient had additional office visits with Dr. Jamarcus Ramirez, but no specific problems were reported during these visits. Cervical spondylosis, scheduled for surg guevara Generalized anxiety disorder, ongoing Major depressive disorder, in remission Primary insomnia, ongoing
== END 2024-10-25 08:59 | disposition home or self-care (01) ==
LOC: ANHIMG 08:59
PROVIDERS: PCP Family Medicine; Visit Provider Internal Medicine Endocrinology, Diabetes & Metabolism
DX: M81.0 Age-related osteoporosis without current pathological fracture (principal); M85.88 Other specified disorders of bone density and structure, other site; M85.852 Other specified disorders of bone density and structure, left thigh; M85.851 Other specified disorders of bone density and structure, right thigh
CPT/HCPCS: 77080